=== PATIENT | male | born 1940 | race Caucasian/White ===

== ENCOUNTER 2017-01-09 02:12 | Inpatient (IN) | payer MEDICARE ==
[~2017-01-09] VITALS: Ht 188 cm; Wt 143.3 kg
[2017-01-09] VITALS (9 sets, daily range): BP systolic 94–130; BP diastolic 60–92; PULSE 55–144; RESP 20–28; O2SAT 96–100
[~2017-01-09 02:12] MED LIST: AMLO5TAB2 PO; ASPI-628 PO; CHOL100094 PO; FENO145T19 PO; FISH1CAP15 PO; FRSM80T PO; HYDR25TA4 PO; LISI-567 PO; MAGN400T4 PO; METF10002 PO; MULT1TAB70 PO; NIAC500T8 PO; POTA20TA16 PO; SITA100T12 PO; WARF5TAB7 PO
--- NOTE | 2017-01-09 02:22 | ED.REPORT ---
HPI-General Illness Date of Service Jan 09, 2017 ED Provider: Norberto Evans MD Patient is a 76 year old male with cardiac pacemaker and a history of atrial fibrillation on Coumadin, aortic valve replacement, coronary artery disease s/p CABG, hypertension, and diabetes mellitus who presents to the ED via EMS with blunt head trauma after a fall down 15 stairs this morning. Patient reportedly was walking up the stairs when he became dizzy and light headed. The patient grabbed for the rail but instead fell backwards down the stairs. Patient did not lose consciousness. He reports bilateral shoulder pain but denies hip pain, chest pain, or abdominal pain. He has various abrasions on his extremities. Patient was found to be hypotensive initially when he stood up, at 61 systolic. However he has remained stable since that time. Nursing Notes Stated Complaint: FALL DOWNSTAIRS/HYPOTENSION Nursing Notes Reviewed: Yes Allergies: Coded Allergies: Tizlvfk-Orc-Xba Reductase Inhibitor (Verified Allergy, Severe, 01/09/17) unable to walk hydrocodone (Verified Allergy, Severe, Shortness of Breath, 01/09/17) atorvastatin (Verified Allergy, Intermediate, muscle weakness, "can't walk ", 01/09/17) fluticasone (Verified Allergy, Intermediate, Hives, 01/09/17) gemfibrozil (Verified Allergy, Intermediate, 01/09/17) pt cannot remember reaction but states not being able to walk was r/t only to statins. simvastatin (Verified Allergy, Intermediate, muscle weakness "can't walk" , 01/09/17) Uncoded Allergies: crestor (Allergy, Intermediate, muscle weakness, can't walk, 10/31/07) red yeast rice (Allergy, Unknown, 10/31/07) Scheduled Furosemide (Furosemide) 20 Mg Tab 20 MG PO DAILY Glipizide (Glipizide) 5 Mg Tablet 5 MG PO DAILY Lisinopril (Lisinopril) 10 Mg Tablet 10 MG PO DAILY Magnesium Oxide (Magnesium Oxide) 400 Mg Tablet 400 MG PO DAILY Metformin ER (Metformin ER) 1,000 Mg Tablet 1,000 MG PO BID Rosuvastatin Calcium (Crestor) 5 Mg Tablet 2.5 MG PO WEEKLY Spironolactone (Spironolactone) 25 Mg Tablet 25 MG PO DAILY Warfarin Sodium (Warfarin Sodium) 5 Mg Tablet 5 MG PO Saturday Warfarin Sodium (Warfarin Sodium) 2.5 Mg Tablet 2.5 MG PO Sun,T,W,Th,F,S Miscellaneous Medications Multivitamin (Once Daily) 1 Each Tablet 1 EACH PO Vitamin B Complex 100 No.2 (B-100 Complex) 100 Mg Tablet.er 100 MG PO General Time Seen by MD: 02:13 Chief Complaint Other (blunt head trauma) Hx Obtained From: Patient Arrived By: Ambulance Sudden in Onset?: Yes Onset Occurred: Just prior to arrival Symptom Duration: Since onset Caused by: Fall down stairs Location: : Head: Shoulder left: Shoulder right Quality: Painful Severity: Current: Moderate Severity: Maximum: Moderate Recent Healthcare: No recent doctor visit, No recent hospitalization Similar Sx Previous: No Past Medical History Past Medical History atrial fibrillation on coumadin diabetes mellitus with peripheral neuropathy coronary artery disease hypertension arthritis hemorrhoids Venous stasis ulceration Venous insufficiency with lymphedema Eczema BPH Past Surgical History aortic valve replacement Reports: CABG, Cataract surgery Reports: Pacemaker insertion Smoking History Unknown if Ever Smoker Social History Other Social History: Good social support, , Local resident Ambulatory Status Independent Review of Systems Full Review of Systems Cardiovascular: Denies: Chest pain GI: Denies: Abdominal pain Musculoskeletal: Reports: Extremity pain, Joint pain, Denies: Neck pain Neurologic: Reports: Dizziness, Headache (head trauma), Lightheaded, Denies: Change LOC Complete sys rev & neg: except as marked. Physical Exam Vital Signs see paper chart Initial VS: Reviewed Skin: Warm, Dry, No cyanosis Neurologic: Alert, Oriented, Nonfocal Psychiatric: Mood/affect normal, Behavior normal, Normal thought content General/Constitutional: Awake, Alert, No acute distress Head / Eyes: Normocephalic, PERRL, EOMI superficial abrasion to his forehead Neck: Supple, No midline vertebral tend Trauma - Neck Specific: Positive: Immobilized - C Collar (placed in C collar after initial evaluation) Respiratory / Chest: Breath sounds NL, Breath sounds = bilat, No respiratory distress, No rales, No rhonchi, No wheezing, No chest tenderness, No chest wall deformity, No crepitus Cardiovascular: Cap refill not delayed, Peripheral circulation NL Heart Rate / Rhythm: Positive: Irreg irregular rhythm (in atrial fibrillation) , Tachycardia Abdomen: Soft, Non-tender, No guarding, No rebound Upper Extremities Upper Extremity / MS: No deformity, Neurologic intact, Vascular intact Right Shoulder: Negative: Deformity present Left Shoulder: Negative: Deformity present abrasion to the left forearm extensor surface Lower Extremity / Pelvis / MS: No deformity, Neurologic intact, Vascular intact Ankle / Foot: Neurologic intact, Vascular intact abrasion to the right second toe Interpretation & Diagnostics Lab Results Interpretation Result Diagram: 01/09/1721401/09/175 Test 01/09/17 02:15 White Blood Count 6.5th/mm3 (3.8-10.1) Red Blood Count 4.06mil/mm3 (4.40-5.80) Hemoglobin 11.1g/dL (13.8-17.2) Hematocrit 37.1% (41.0-50.0) Mean Corpuscular Volume 91.4fL (81-100) Mean Corpuscular Hemoglobin 27.3pg (27.0-35.0) Mean Corpuscular Hemoglobin Concent 29.9% (32.0-37.0) Red Cell Distribution Width 16.2% (12.3-15.4) Platelet Count 174bil/L (150-400) Neutrophils (%) (Auto) 76.4% (40-74) Lymphocytes (%) (Auto) 14.4% (14-46) Monocytes (%) (Auto) 6.8% (4-12) Eosinophils (%) (Auto) 1.1% (0-5) Basophils (%) (Auto) 0.2% (0-3) Prothrombin Time 29.7sec (8.1-12.5) Prothromb Time International Ratio 2.72ratio Activated Partial Thromboplast Time 33.8sec (22.8-33.0) Sodium Level 140mEq/L (134-144) Potassium Level 5.2mEq/L (3.5-5.2) Chloride Level 104mEq/L (97-108) Carbon Dioxide Level 18mmol/L (18-29) Blood Urea Nitrogen 34mg/dL (8-27) Creatinine 1.11mg/dL (0.76-1.27) Estimat Glomerular Filtration Rate 69mL/min (>59) Glucose Level 128mg/dL (60-99) Calcium Level 9.0mg/dL (8.5-10.1) Magnesium Level 1.7mg/dL (1.6-2.6) Total Bilirubin 0.9mg/dL (0.0-1.2) Aspartate Amino Transf (AST/SGOT) 15U/L (0-50) Alanine Aminotransferase (ALT/SGPT) 11U/L (0-44) Alkaline Phosphatase 62U/L (25-160) Troponin T 0.010ug/L (0.0-0.011) Total Protein 6.7g/dL (6.4-8.4) Albumin 3.5g/dL (3.4-5.0) Lipase 11U/L (13-60) Alcohols < 10mg/dL (0-10) ECG Interpretation ECG Interpretation: Atrial fibrillation, paced rhythm, Rate 119 One fusion beat Time: 02:28 Interpreted by: ED physician X-Ray Chest Interpretation Chest Xray Interpretation: Impression: Pleural effusions bilaterally. Cardiomegaly. Increased markings, consistent with CHF. Interpretation / Wet Read by: Wet read ED physician X-Ray Interpretation Xray Interpretation: Impression: No acute fracture. X-Ray Ordered: Pelvis Interpretation / Wet Read by: Wet read ED physician CT Head Interpretation CONCLUSION: Posterior scalp hematoma. No evidence of acute intracranial injury. Chronic microvascular ischemic disease and volume loss. Radiologist: Corrine Mares MD 01/09/2017 - 2:54:06 AM PDT Study: Head CT no contrast Interpretation / Wet Read by: Interpret - Radiologist CT C-Spine Interpretation CONCLUSION: No evidence of fracture or subluxation. Extensive degenerative changes with slight central canal stenosis multilevel. If any neurologic symptoms, MRI may be helpful for further evaluation. Bilateral pleural effuions and hazy lung opacities. Radiologist: Corrine Mares MD 01/09/2017 - 3:06:48 AM PDT Study type: CT no contrast Interpretation / Wet Read by: Interpret - Radiologist Re-Eval/Medical Decision Med Decision/Clinical Course 76-year-old therapeutically anticoagulated on Coumadin suffered a stair fall and head injury after an episode of orthostatic dizziness apparently. His blood pressure and vitals been stable since. Cardiac evaluation negative. Initial CT is negative for intracranial bleeding or neck injury. By protocol, he is admitted for observation status and rescan in 6-8 hours to exclude slow bleeding with his underlying anticoagulation. Transported to the medical service in stable condition. Source of Hx: Old records Time of Eval: 03:14 Patient Status: Condition improved Re-Evaluation/Progress Note: Rechecked the patient, he is now accompanied by his . He was informed that no acute injury was seen on x-ray or CT scan. However he will need to be admitted to the hospital for a repeat CT scan in 8 hours. This is due to the fact that his INR is currently therapeutic. Patient understands and agrees with this plan. All questions were addressed. Consultation : Referral / Consult Name: Devaughn Medley MD Consulted With: Hospitalist Call Returned at: 03:10 Safety Spec: Will see patient, Agrees with eval, Agrees with plan, Accepts admit Note: Spoke with Dr. Medley, hospitalist, who agrees to accept admit. Counseled Regarding: Diagnosis, Lab results, Need for admission Discharge & Departure Primary Impression: Blunt head injury Encounter type: initial encounter Qualified Code: S09.8XXA - Other specified injuries of head, initial encounter Additional Impressions: Fall from ground level Anticoagulated on Coumadin Atrial fibrillation Atrial fibrillation type: chronic Qualified Code: I48.2 - Chronic atrial fibrillation Multiple abrasions Disposition: ADMITTED TO HOSPITAL Discharge Condition All VS Reviewed: Yes Condition: Stable Referrals: Temitope Buenrostro PA-C (PCP) Calin Waller MD (Family) Paige Attestation Portions of this note were transcribed by Jeannie Lanza. I, Dr. Evans personally performed the history, physical exam and medical decision-making; I reviewed and confirmed the accuracy of the information in the transcribed note. Signed by: Paige Warren, 01/09/2017 [id number] copies to: Temitope Buenrostro PA-C, Christopher W MD Jan 09, 2017 02:21 Jeannie Lanza Jan 09, 2017 02:29
[2017-01-09 02:28] LABS: BASOPHILS % (AUTO) 0.2 % (0-3); EOSINOPHILS % (AUTO) 1.1 % (0-5); MONOCYTES % (AUTO) 6.8 % (4-12); Mean Corpuscular Hemoglobin 27.3 pg (27.0-35.0); Mean Corpuscular Volume 91.4 fL (81-100); NEUTROPHILS % (AUTO) 76.4 % (40-74); Platelet Count 174 bil/L (150-400)
[2017-01-09 02:46] LABS: INR 2.72 ratio
[2017-01-09] MEDS ORDERED: LISI10TA PO (02:54)
[2017-01-09] MEDS ORDERED: SPIR25TA3 PO (02:54)
[2017-01-09] MEDS ORDERED: VITA100T4 PO (02:54)
[2017-01-09] MEDS ORDERED: GLPZ5T PO (02:54)
[2017-01-09] MEDS ORDERED: ROSU5TAB PO (02:54)
[2017-01-09] MEDS ORDERED: FUR20 PO (02:54)
[2017-01-09] MEDS ORDERED: METF-496 PO (03:05)
[2017-01-09] MEDS ORDERED: MULT-666 PO (03:06)
[2017-01-09] MEDS ORDERED: WARF2.5T82 PO (03:06)
[2017-01-09] MEDS ORDERED: WARF5TAB7 PO (03:06)
[2017-01-09 03:09] LABS: Lipase 11 U/L (13-60); Magnesium 1.7 mg/dL (1.6-2.6)
[2017-01-09] MEDS ORDERED: Ondansetron 2 mg/mL 2 mL Inj IVPUSH PRN (03:45)
[2017-01-09] MEDS ORDERED: Polyethylene Glycol (PEG) 17 Gm Powder PO PRN (03:45)
[2017-01-09] MEDS ORDERED: Alum-Mag Hydrox-Simeth 30 mL Suspension PO PRN (03:45)
--- NOTE | 2017-01-09 03:53 | PCM.HPMED ---
Subjective Date of Service Jan 09, 2017 Primary Provider: Admitting Physician: Primary Care Physician: Temitope Buenrostro PA-C Attending Physician: Admit Status: From the Emergency Department, Remote Telemetry Chief Complaint: Fall down stairs History of Present Illness: Mr. 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 He was admitted for evaluation and monitoring any potential injury secondary to this fall. Hospital day 1 Mr. Bajwa states that he fell this evening as he got up from his chair on the first level of his home, and he was on his way upstairs to sleep in his bedroom , when he reached the top step and was unable to grab the hand rail, and as he was reaching for the handrail he tumbled down approximately 15 steps sideways. He denies any loss of consciousness, shortness of breath, dizziness, gait instability, acute vision changes, headache prior to this event, or any other inciting factor. He does not believe he tripped, blacked out, or was dizzy at the top of the steps. He states he is uncertain why he fell, but he does remember the sensation of falling, and attempting to reach for the handrail. He notes he uses a walker or cane at baseline, but is able to effectively ambulate around his home and perform activities of daily living without any difficulties. He states that his injury leading to this admission was not related to his recent right knee replacement, nor does he believe is related to his recent admission in [place], which was for treatment of left lower extremity cellulitis. He states that he has been followed by wound care since that hospitalization in [place], with most recent wound care visit the day prior to admission. He states he also recently began physical therapy for his right knee replacement. Patient was recently seen by cardiology 12/28, and was in stable condition at that time. In the ED, multiple imaging studies were obtained including EKG which revealed atrial fibrillation and a paced rhythm, chest x-ray which revealed pleural effusions bilaterally and cardiomegaly consistent with CHF, cervical spine x- ray which did not reveal any acute fracture; CT head did not reveal any acute intracranial injury, but did reveal a posterior scalp hematoma and chronic microvascular ischemic disease and volume loss; CT cervical spine reveal any evidence of fracture or subluxation, but there was extensive degenerative changes; initial labs revealed WBC 6.5, hemoglobin 11.1, electrolytes within range, creatinine 1.11, glucose of 128. This patient was seen in the ED and was in stable condition, awaiting transport to the floor. Review of Systems: Complete ROS obtained: Pertinent positives and negatives as noted in history of present illness Allergies Coded Allergies: Owybdsn-Ufb-Akp Reductase Inhibitor (Verified Allergy, Severe, 01/09/17) unable to walk hydrocodone (Verified Allergy, Severe, Shortness of Breath, 01/09/17) atorvastatin (Verified Allergy, Intermediate, muscle weakness, "can't walk ", 01/09/17) fluticasone (Verified Allergy, Intermediate, Hives, 01/09/17) gemfibrozil (Verified Allergy, Intermediate, 01/09/17) pt cannot remember reaction but states not being able to walk was r/t only to statins. simvastatin (Verified Allergy, Intermediate, muscle weakness "can't walk" , 01/09/17) Uncoded Allergies: crestor (Allergy, Intermediate, muscle weakness, can't walk, 10/31/07) red yeast rice (Allergy, Unknown, 10/31/07) Home Medications Obtained from [employer] documentation dated 01/01/17 Vick Bajwa [id number] 1940 01/01/2017 01:40 PM 09/21 Start Date Medication Directions Stop Date 12/08/2015 carvedilol 6.25 mg tablet take 1.5 tablets by oral route 2 times every day with food 05/18/2016 Crestor 5 mg tablet take 0.5 tablet by oral route every week Dulcolax (bisacodyl) 10 mg rectal suppository insert 1 suppository by rectal route every day as needed for constipation flaxseed oil 1,000 mg capsule Take one capsule twice a day Fleet [employer]ema 19 gram-7 gram/118 mL 12/28/2016 furosemide 40 mg tablet 1 tablet by mouth daily 12/21/2016 glipizide 5 mg tablet take 1 tablet by oral route every day GLUCOSAMINE-CHONDROITIN 03/06/2016 lisinopril 10 mg tablet take 1 tablet by oral route every day 12/21/2016 magnesium oxide 400 mg tablet 1 tablet by mouth daily 10/18/2016 metformin 1,000 mg tablet take 1 tablet by oral route 2 times every day with morning and evening meals 08/23/2009 Multi-Day 1 tablet by mouth daily OneTouch Ultra Test strips test one times a day 09/21/2016 spironolactone 25 mg tablet take 1 tablet by oral route every day ( stop potassium, triamterene, hydrochlorothiazide) Tylenol 325 mg tablet take 2 tablet by oral route every 4 hours as needed Vitamin D3 1,000 unit tablet take 1 tablet by oral route every day 10/09/2016 warfarin 5 mg tablet take 0.5 tablet (2.5mg) daily except take one tablet (5mg) on Tuesdays Patient and did verify medications including carvedilol, furosemide, glipizide, lisinopril, magnesium, metformin, spironolactone, and warfarin PMH Aortic stenosis status post prosthetic aVR Coronary artery disease status post four-vessel CABG Reduced ejection fraction heart failure from ischemic cardiomyopathy Third-degree AV block status post [place] [place] dual-chamber pacer Atrial fibrillation on long-term anticoagulation therapy Degenerative joint disease of bilateral knees status post right total knee replacement Type II diabetes Hyperlipidemia Hypertension Bilateral lower extremity venous stasis changes Left lower extremity cellulitis secondary to fluid overload Surgical History Aortic valve replacement, bioprosthetic Four-vessel CABG Dual-chamber pacer placement Unspecified eye surgery Right knee replacement Family History Father of myocardial infarction at age of 62, mother at the age of 45 secondary to suicide Social History Occupation: retired Hx Alcohol Use: No Hx Substance Use: No Hx Tobacco Use: No Smoking Status: Never Smoker Living Arrangement: with Family (; local [place] Del[place]) Exam Exam General: Obese gentleman resting supine in bed in no acute distress; coverage and multiple abrasions and remnants of recent bleed HEENT: Small abrasions noted of right ear, across forehead, and along scalp no tenderness reported; pupils equal and reactive to light, EOMI, mucous membranes moist Neck: Able to move full range of motion without significant pain but does report discomfort Cardiac: Tachycardic at time of examination with rates 110-130, irregularly irregular, systolic murmur 2/6 Respiratory: Adequate airflow all wharton, no wheeze or rhonchi appreciated Abdomen: Soft, nontender, nondistended Extremities: Left lower extremity is wrapped from metatarsal phalangeal joint to distal aspect of knee without surrounding erythema above and imaging; right lower extremity notable for linear scar at knee, multiple small abrasions noted without evidence of profuse active bleeding; bilateral upper extremities notable for small abrasions without evidence of significant active bleeding; significant bilateral lower extremity venous stasis changes with mild to moderate edema Chest: Linear scar central, healed; small abrasions noted Skin: Warm and dry, again with multiple sites of abrasion, but no evidence of profuse active bleeding at this time; no areas in need of extensive bandaging or suturing Neuro: Cranial nerves II through XII grossly intact, facial expressions were symmetrical, and speech was without slur Psych: Appropriate mood, affect, and responsive to questioning Lab and Diagnostics Result Diagram: 01/09/1721401/09/17214 Assessment & Plan Mr. 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 He was admitted for evaluation and monitoring any potential injury secondary to this fall. Hospital day 1 Traumatic fall down steps, acute, present on admission. Under evaluation - Initial CT scan did not reveal any acute intracranial abnormality - Repeat head CT between noon and 2 PM; ordered - Physical therapy evaluation for gait stability given history of recent right knee replacement and recent history of left lower extremity cellulitis - Orthostatics - Labs: CBC, BMP, thyroid - Telemetry Chronic atrial fibrillation on long-term anticoagulation therapy. Presumed stable - Admit: INR 2.72 - Holding anticoagulation at this time secondary to possibility of bleeding - Carvedilol has been continued Heart failure with reduced ejection fraction, chronic. Presumed stable - Continue home meds when appropriate; spironolactone and furosemide have been ordered Non-insulin using diabetes mellitus, chronic. Presumed stable - HbA1c 12/2016:6.3 - Holding oral medications at this time - Low-dose correctional scale in place Hypertension, chronic. Presumed stable - Continue home meds when appropriate - Consider modifications of carvedilol and/or diuretics based on results of orthostatic vitals Osteoarthritis of right knee status post arthroplasty, chronic. Presumed stable - Procedure reported to have been completed 10/2016 - PT eval for gait stability PRN: Fever/bowel/pain/nausea DVT: Cannot place SCD on the left lower secondary to left lower extremity wounds , cannot anticoagulate secondary to possibility of bleed GI: Not indicated Diet: Heart healthy/consistent carb CODE STATUS: Full code Patient status: Due to severity of presenting symptoms, likely course of care, and risk of adverse events, anticipated length of stay is less than 2 midnight; admitted as observation at this time Pain Evaluation: Adequate Pain Control GI Prophylaxis: Not indicated VTE Prophylaxis Indicated: Contraindicated VTE Prophylaxis: SCDs Resuscitation Status: CPR: Attempt Resuscitation Attending Statement The patient was seen and examined together with Dr. Arreola on 01/09 and I agree with the history, exam and plan as outlined in the note above. Jaye Arreola DO Jan 09, 2017 03:53 Devaughn Medley MD Jan 09, 2017 05:12
[2017-01-09] MEDS ORDERED: Glucose 40% Oral Gel 15 Gm Tube PO PRN (04:20)
[2017-01-09 07:21] LABS: BASOPHILS % (AUTO) 0.1 % (0-3); EOSINOPHILS % (AUTO) 0.1 % (0-5); MONOCYTES % (AUTO) 6.3 % (4-12); Mean Corpuscular Hemoglobin 27.6 pg (27.0-35.0); Mean Corpuscular Volume 91.8 fL (81-100); NEUTROPHILS % (AUTO) 86.5 % (40-74); Platelet Count 148 bil/L (150-400)
[2017-01-09] MEDS: Insulin LISPRO 300 Unit/3 mL Inj SUBQ SCH ×4 (08:00→21:29)
[2017-01-09] MEDS ORDERED: Furosemide 10 mg/mL 4 mL Inj IVPUSH SCH (08:30)
--- NOTE | 2017-01-09 08:39 | DRSVH ---
PROCEDURE: CT BRAIN WITHOUT CONTRAST ([id number]) INDICATIONS: stair level fall TECHNIQUE: Noncontrast 4.5 mm thick angled axial sections acquired from the foramen magnum to the vertex, with c oronal reformats. COMPARISON: None. FINDINGS: Image quality: Excellent. CSF spaces: Basal cisterns are patent. No extra-axial fluid collections. The ventricles are symmet beltran in size and shape. Brain: No intracranial bleeds or masses. There is cerebral volume loss for age, with resultant vent ricular and sulcal prominence. There are periventricular and deep white matter chronic small vessel ischemic changes. There is intracranial internal carotid artery and vertebral artery atherosclerosis . Skull and face: Calvarium and visualized facial bones appear intact, without suspicious lesions. Sma ll posterior left parietal scalp hematoma is noted. Scattered soft tissue air is noted in the right t emporal cyst gout, right frontal scalp and the right infratemporal fossa. Small amount of air noted i n the right internal jugular vein and the right C1 transverse foramen. Etiology of the vascular soft tissue air is uncertain. Sinuses: Visualized sinuses and mastoids are clear. IMPRESSION: 1. No acute intracranial disease process. 2. Small left parietal scalp hematoma. 3. Right facial soft tissue air of uncertain etiology. Dictated by: Nancy Moody MD, PhD on 01/09/2017 at 8:34 Approved by: Nancy Moody MD, PhD on 01/09/2017 at 8:38
[2017-01-09 08:43] LABS: APPEARANCE,URINE HAZY (CLEAR,HAZY); COLOR,URINE YELLOW (YELLOW); PH,URINE 5.5 (5.0-8.0)
[2017-01-09 08:44] LABS: OCCULT BLOOD,URINE NEGATIVE (NEGATIVE); UROBILINOGEN,URINE NORMAL (NORMAL)
[2017-01-09 08:56] LABS: Magnesium 1.7 mg/dL (1.6-2.6)
--- NOTE | 2017-01-09 08:57 | DRSVH ---
PROCEDURE: X-RAY CHEST ONE VIEW, PORTABLE ([id number]) INDICATIONS: fall TECHNIQUE: One view of the chest was acquired. COMPARISON: [facility], CR, CHEST 2VW, 10/28/2012, 7:32. FINDINGS: Surgical changes and devices: Post median sternotomy. Stable position of left cardiac pacer. Lungs and pleura: There is cephalization of lung vessels and diffuse, widespread bilateral interstiti al opacities present. Mediastinum: Mediastinal contours appear normal. Heart size is enlarged. Mitral annular calcificat ion redemonstrated. Bones and chest wall: No suspicious bony lesions. Overlying soft tissues appear unremarkable. IMPRESSION: 1. Cephalization and lung vessels with interstitial opacities and background cardiomegaly suggesting CHF. Correlate clinically. Dictated by: Mika Meadows [facility] Interpreted: Adam Manuel MD on 01/09/2017 at 8:56 Transcribed by: TOMMIE on 01/09/2017 at 8:57 Approved by: Adam Manuel M.D. on 01/09/2017 at 15:39
--- NOTE | 2017-01-09 08:58 | DRSVH ---
PROCEDURE: X-RAY PELVIS, ONE OR TWO VIEWS ([id number]) INDICATIONS: fall TECHNIQUE: 1 view(s) of the pelvis acquired. COMPARISON: None. FINDINGS: Bones: No fractures or dislocations. No suspicious bony lesions. Soft tissues: Visualized bowel gas pattern is normal. No suspicious soft tissue calcifications. IMPRESSION: No displaced fracture seen. If there is continued pain, followup exam or additional casi ging such as MRI or CT could be performed for further assessment. Dictated by: Mika Meadows [facility] Interpreted: Adam Manuel MD on 01/09/2017 at 8:57 Transcribed by: TOMMIE on 01/09/2017 at 8:57 Approved by: Adam Manuel M.D. on 01/09/2017 at 15:39
--- NOTE | 2017-01-09 10:11 | DRSVH ---
PROCEDURE: CT CERVICAL SPINE WITHOUT CONTRAST ([id number]) INDICATIONS: stair level fall TECHNIQUE: Noncontrast 3 mm thick sections acquired from the skull base to the T4 level. Sagittal and coronal r eformats were then constructed. For radiation dose reduction, the following was used: automated exp osure control, adjustment of mA and/or kV according to patient size. COMPARISON: None. FINDINGS: Image quality: Excellent. Bones: No fractures or dislocations. Visualized superior ribs are intact. Multilevel degenerative d isc disease and facet arthropathy are noted. Soft tissues: Prevertebral soft tissues are normal in thickness. No paravertebral hematomas. No ap ical pneumothoraces. Presence of cardiac pacer leads noted. Atherosclerotic calcifications noted incl uding possible significant atherosclerotic stenosis of the origins of the internal carotid arteries. Bilateral pleural fluid collections noted right greater than left. Scattered air locules noted in the chest venous vasculature, neck venous vasculature and the cavernous sinus likely related to intraven ous catheter placement. IMPRESSION: 1. No fracture. No acute osseous lesion. If symptoms and/or clinical suspicion for pathology persists , evaluation with MRI may be helpful for further assessment. 2. Atherosclerosis including possible significant atherosclerotic stenosis of the origins of the inte rnal carotid arteries. Recommend carotid Doppler ultrasound for further evaluation. 3. Bilateral pleural effusions. Dictated by: Nancy Moody MD, PhD on 01/09/2017 at 10:00 Approved by: Nancy Moody MD, PhD on 01/09/2017 at 10:09
--- NOTE | 2017-01-09 11:11 | PCM.PNMED ---
Subjective Date of Service Jan 09, 2017 Subjective Patient is seen and examined. His CT scan of the head shows left parietal hematoma. 2 follow-up CT scan ordered last night. His orthostatics are positive. He says that he experiences dizziness every time he takes a one fourth tablet of Lasix. This has been an issue for him because he continues to need the Lasix for diuresis but having to face the side effects of dizziness. He says this is a similar feeling to him not sudden onset and he experienced the same level of dizziness when he experienced a fall. His right shoulder is currently hurting but otherwise negative for pain. States he just had hospitalization related Gen. 2 weeks ago for right leg cellulitis. 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 Exam Vital Signs Vital Sign - Last Date Time Temp Pulse Resp B/P Pulse Ox O2 Delivery O2 Flow Rate FiO2 01/09/17 09:55 91 22 112/79 96 Nasal Cannula 2.00 01/09/17 07:00 36.8 Intake and Output 01/08/17 01/08/17 01/09/17 Cumulative From/Thru 15:00 23:00 07:00 01/09/17 04:43 - 01/09/17 04:43 Intake Total 1000 ml 1000 ml Balance 1000 ml 1000 ml Intake IV Total 1000 ml 1000 ml Exam Gen.: No acute distress has several superficial scrapes all over his body from the fall HEENT: Normocephalic with the exception of a bruise on the frontal hairline Heart: Soft systolic murmur Neck: Positive JVD on the left side, positive hepatojugular reflux Lungs: Clear anteriorly Abdomen obese, soft nondistended Extremities: Left leg is wrapped in dressings by wound care, and has 2+ pitting edema with venous stasis changes and discoloration Psychiatric negative for anxiety Neuro: No focal deficits IVs and Medications IV Fluids None Medications Reviewed: Medications were reviewed in detail Lab and Diagnostics Result Diagram: 01/09/17 0710 01/09/17 07 Assessment & Plan Mr. 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 He was admitted for evaluation and monitoring any potential injury secondary to this fall. Hospital day 1 Traumatic fall down steps, acute, present on admission. Under evaluation - Initial CT scan did not reveal any acute intracranial abnormality - Repeat head CT between noon and 2 PM; ordered: We will recheck for increasing hematoma - Physical therapy evaluation for gait stability given history of recent right knee replacement and recent history of left lower extremity cellulitis - Orthostatics - Labs: CBC, BMP, thyroid - Telemetry -- Plan to hold Coumadin until his second CT is clear or longer Chronic atrial fibrillation on long-term anticoagulation therapy. Presumed stable - Admit: INR 2.72 - Holding anticoagulation at this time secondary to possibility of bleeding - Carvedilol has been continued -- We will reverse it is the follow-up CT scan shows worsening Internal carotid stenosis: -- As indicated by the this a.m., follow carotid ultrasound is ordered Heart failure with reduced ejection fraction, chronic. Presumed stable -- He is currently on IV 40 mg of Lasix and spironolactone -- We will put him back on his home regimen Non-insulin using diabetes mellitus, chronic. Presumed stable - HbA1c 12/2016:6.3 - Holding oral medications at this time - Low-dose correctional scale in place Hypertension, chronic. Presumed stable - Continue home meds when appropriate - Consider modifications of carvedilol and/or diuretics based on results of orthostatic vitals: Positive orthostatics. We will consider careful titration of Lasix, cardiology consult Osteoarthritis of right knee status post arthroplasty, chronic. Presumed stable - Procedure reported to have been completed 10/2016 - PT eval for gait stability PRN: Fever/bowel/pain/nausea DVT: Cannot place SCD on the left lower secondary to left lower extremity wounds , cannot anticoagulate secondary to possibility of bleed GI: Not indicated Diet: Heart healthy/consistent carb CODE STATUS: Full code, confirmed again this morning 01/09 Alternate decision-maker: Patient status: Due to severity of presenting symptoms, likely course of care, and risk of adverse events, anticipated length of stay is less than 2 midnight; admitted as observation at this time Pain Evaluation: Adequate Pain Control GI Prophylaxis: Not indicated VTE Prophylaxis: SCDs Resuscitation Status: CPR: Attempt Resuscitation Karo Tee DO Jan 09, 2017 11:11
--- NOTE | 2017-01-09 11:45 | NUR ---
Social Work: Initial Assessment Data: Pt is a 76 y/o male admitted for stair fall, blunt head trauma per H&P. Pt's PCP is Temitope Buenrostro PA-C and insurance is [employer] Medicare. Pt does not have VA or LTC insurance. Pt has no HH or SNF history. Pt lives at home in [place] with his Vania. Vania Bajwa is his primary contact ([phone]). Pt lives in a split level home with [address] Pt drives and independent at baseline. Pt uses 4-point cane and FWW for long distances. Pt is independent of ADL's. SW reviewed PT evaluation and notes that PT recommends pt to go home with no needs at time of discharge. Pt will go home with via POV at time of discharge. SW will continue to follow. Assessment: Pt who is independent at baseline. Plan: Pt will discharge home with via POV when he is ready. No anticipated discharge needs. Addendum: 01/09/17 at 1155 by MAURO HSIEH Amended: Links added. Addendum: 01/09/17 at 1331 by PANCHO IKNG SS Case management- IMM explained and signed by DPOA. Copy given to DPOA. Orginal placed in chart. Pancho BARBOSA/RN
--- NOTE | 2017-01-09 15:08 | DRSVH ---
PROCEDURE: US BILATERAL DUPLEX DOPPLER IMAGING OF THE CAROTIDS ([id number]) INDICATIONS: IC carotid stenosis on CT TECHNIQUE: Color and pulse Doppler interrogation was performed of both carotid systems, with image documentation and velocity measurements. COMPARISON: [facility], CT, CT CERVICAL SPINE WO CON, 01/09/2017, 2:34. FINDINGS: All stenosis calculations are based on NASCET criteria. Right side: Brachial blood pressure: 104/71 mm Hg. Common Carotid Artery(Distal) PSV: 46.90 cm/s Internal Carotid Artery PSV- Proximal: 68 cm/s EDV - Proximal: 25 cm/s External Carotid Artery(Proximal) PSV: 58.90 cm/s ICA/CCA PSV ratio: 1.5 [place] scale imaging description: Moderate scattered plaque. Percent internal carotid artery stenosis: Less than 50%. Vertebral artery: Flow direction is antegrade. Left side: Brachial blood pressure: 106/73 mm Hg. Common Carotid Artery(Distal) PSV: 59.30 cm/s Internal Carotid Artery PSV - Proximal: 42.10 cm/s Mid-lon.30 cm/s Distal: 60.60 cm/s EDV - Proximal: 11.10 cm/s Mid-lon.10 cm/s Distal: 14.30 cm/s External Carotid Artery(Proximal) PSV: 43.30 cm/s ICA/CCA PSV ratio: 1.0 [place] scale imaging description: Moderate scattered plaque. Percent internal carotid artery stenosis: Less than 50%. Vertebral artery: Flow direction is antegrade. IMPRESSION: Less than 50% bilateral internal carotid artery stenosis. Cardiac arrhythmia demonstrated. Correlate clinically.nn Dictated by: Mika Meadows RRA Interpreted: Adam Manuel MD on 01/09/2017 at 15:06 Transcribed by: TOMMIE on 01/09/2017 at 15:07 Approved by: Adam Manuel M.D. on 01/09/2017 at 15:40
--- NOTE | 2017-01-09 15:38 | DRSVH ---
PROCEDURE: X-RAY RIGHT SHOULDER, MINIMUM TWO VIEWS ([id number]) INDICATIONS: fall, pain w flex/abduction TECHNIQUE: 3 views of the shoulder were acquired. COMPARISON: None. FINDINGS: Bones: No fractures or dislocations. No suspicious bony lesions. Visualized ribs appear intact. M ild joint narrowing with periarticular osteophyte formation. Soft tissues: No suspicious soft tissue calcifications. IMPRESSION: 1. No displaced fracture seen. If there is continued pain, followup exam or additional imaging such as MRI or CT could be performed for further assessment. 2. Joint degeneration. Dictated by: Mika Meadows [facility] Interpreted: Adam Manuel MD on 01/09/2017 at 15:37 Transcribed by: TOMMIE on 01/09/2017 at 15:38 Approved by: Adam Manuel M.D. on 01/09/2017 at 15:43
--- NOTE | 2017-01-09 15:39 | DRSVH ---
PROCEDURE: CT BRAIN WITHOUT CONTRAST ([id number]) INDICATIONS: repeat-eval bleed 2/2 GLF on coumadin TECHNIQUE: Noncontrast 4.5 mm thick angled axial sections acquired from the foramen magnum to the vertex, with c oronal reformats. COMPARISON: [facility], CT, CT BRAIN WO CON, 01/09/2017, 2:34. FINDINGS: Image quality: Excellent. CSF spaces: Basal cisterns are patent. No extra-axial fluid collections. The ventricles are symmet beltran in size and shape. Brain: No intracranial bleeds or masses. There is cerebral volume loss for age, with resultant vent ricular and sulcal prominence. There are periventricular and deep white matter chronic small vessel ischemic changes asymmetrically mildly more prominent at the right frontal region and on the left whe re a prior stroke likely has occurred (image 19).. There is intracranial internal carotid artery ath erosclerosis. Skull and face: Calvarium and visualized facial bones appear intact, without suspicious lesions. A very small amount of gas within the deep soft tissues adjacent to the posterior lateral border of the right maxillary sinus has resolved, with reference to the CT scan from earlier this morning (approxi mately 12 hours ago). Left frontal scalp swelling again noted over the forehead. Sinuses: Visualized sinuses and mastoids are clear. IMPRESSION: No intracranial hemorrhage seen. Moderate microvascular atherosclerotic change including a presumed prior stroke right frontal brain parenchyma within the deep white matter, stable from the study 12 hours ago. Resolution of a very small amount of gas in the deep soft tissues of the right face adjacent to the posterior border of the right maxillary sinus. This therefore appears to have p osttraumatic in origin. Dictated by: Adam Manuel M.D. on 01/09/2017 at 15:31 Approved by: Adam Manuel M.D. on 01/09/2017 at 15:38
--- NOTE | 2017-01-09 17:19 | NUR ---
Wound Care Wound orders received, pt seen at bedside prior to eminent discharge. 76 yo male currently in [facility] for left lower extremity stasis ulcerations. Pt fell at home, currently presents with skin tears at right forearm measuring 2 cm L x 3 cm W x 0.1 D and 1 cm L x 2 cm W x 0.1 cm, these was covered with a mepilex foam dressings. Left elbow has a skin tear that is 1 cm in diameter ad is covered with a mepilex foam dressing. Patient also had abrasion on his forehead which did not require a dressing and an abrasion on his right knee that measured 3 cm L x 4 cm W x 0.1 cm D, this was also covered with a mepilex foam dressing. Patient has follow up appointment at the wound center on 01/14/[address] Davenport.
--- NOTE | 2017-01-09 17:27 | HP ---
[address] [address] HISTORY AND PHYSICAL PATIENT: NEIDA WAGNER : 1940 MR#: [id number] ADMIT: 01/09/2017 JOB ID: [id number] CHIEF COMPLAINT: Fall from stairs. HISTORY OF PRESENT ILLNESS: The patient is a very pleasant, 76-year-old gentleman with complex cardiac history. He underwent four-vessel bypass in 2008 along with a bioprosthetic aortic valve. He also had a pacemaker placed for third-degree AV block. He also has history of chronic atrial fibrillation. In addition, he has cellulitis and venous stasis ulcers of his legs. He has chronic lower extremity edema. The patient's last echocardiogram done in 2015 showed mild LV dysfunction with EF around 45%. His bioprosthetic valve was working appropriately. He also has mild mitral stenosis with a mean inflow gradient about 5 mm. Yesterday he was climbing stairs in his house. He has 15 steps. He got to the top of the staircase and tried to grab the railing behind him. He felt a wave of lightheadedness. He lost his balance and fell down 15 steps. Unfortunately, he did not break any bones. His CT scan did not show any intracranial hemorrhage. He has soft tissue hematoma. The patient currently is denying any chest discomfort or chest pressure. He has been in the hospital and he has been monitored. His monitoring shows atrial fibrillation, and his heart rate has been fairly high and running over 100. Currently, the patient is denying any cardiac symptoms. He wants to go home. PAST MEDICAL HISTORY: As per HPI. Mainly aortic stenosis, status post prosthetic AVR, coronary artery disease; status post coronary artery bypass grafting, high-grade AV block with a permanent pacemaker, AFib, degenerative joint disease, diabetes, hyperlipidemia, hypertension, venous stasis ulcers, history of cellulitis of his legs in the past. FAMILY HISTORY: His father had a myocardial infarction in the 60s. PERSONAL HISTORY: He is retired. Nonsmoker, nondrinker. REVIEW OF SYSTEMS: Comprehensive review of systems was done and is as per HPI. He sees Dr. Nai Davenport [facility]. He has not been informed about any arterial insufficiency of the lower limbs. Neurological: Recent CT scan showed evidence of microvascular disease. He has not had any stroke. The patient sleeps in a recliner. He has history of orthopnea which is chronic. There has been no worsening in his orthopnea. He denies any PND ALLERGIES: 1. MULTIPLE STATINS. 2. HYDROCODONE. 3. GEMFIBROZIL. 4. FLUTICASONE. 5. RED YEAST RICE. MEDICATIONS: At home: Carvedilol, Crestor, flaxseed, furosemide, glipizide, lisinopril, magnesium, metformin, spironolactone, warfarin, vitamin B and Tylenol. EXAMINATION: Overweight elderly gentleman in no apparent distress. Neck is supple. I could not appreciate a JVD . Lungs are clear. Heart sounds S1, S2 are irregularly irregular, and he is tachycardic. No gallops could be appreciated. Abdomen is soft and obese. No organomegaly could be palpated. Extremities: Left leg is wrapped in a dressing. He has 2+ edema with hyperpigmentation and venous stasis changes. Neurological: Alert and oriented x3. Moving all four limbs. LABORATORY DATA: Was reviewed. His creatinine is 0.99. His hemoglobin is 10.5, which is mildly reduced. ASSESSMENT AND PLAN: This gentleman presents after a fall. I was asked to see him for optimization of his medical therapy. He has mild LV dysfunction. He has history of congestive heart failure. He presents mainly with findings of right heart failure (there is mention of hepatojugular reflux and elevated JVD on admission). His orthopnea could be because of his body habitus and habit. He does not appear to be in left-sided heart failure. His edema could be a result of venous insufficiency. At this point, I would like to make a few changes in his medications. I will discontinue his carvedilol and start him on metoprolol. Hopefully the beta jimmy without any alpha blocking agents will reduce incidence of his orthostasis (he was noted to be significantly orthostatic earlier today). I have discontinued his spironolactone. Given the fact that does get dizzy at home, it might be worthwhile to except a slightly higher blood pressure in this gentleman in order to avoid orthostatic hypotension. I would also like to check his BNP. I thank you for letting me be involved in his care. I have advised the patient to follow up with as an outpatient. Incidentally I also explained the patient about being in charge of his Lasix. I have advised him to keep a weight chart where he should record his weight every morning.
--- NOTE | 2017-01-09 18:42 | NUR ---
Pain Pt taken down to CT and was unable to lay flat for scan due to pain. Tech called this RN and I spoke to patient. Pt requests PO tylenol, this was administered and successful. rn lpn lvn called and patient taken down for another attemp. Pt able to lay flat for scan. Bed is currently locked and call light w/in reach. [place] alarm on
--- NOTE | 2017-01-09 18:47 | NUR ---
Case Management: IMM explained to patient and spouse at 1700, all questions answered. Signed original placed in chart, copy given to patient. Charlotte García RN
--- NOTE | 2017-01-09 23:09 | NUR ---
paged According to pt., pt. was concerned about prior insomnia he had been experiencing prior to hospitalization coming back. Nelly ROBERTS paged. Nelly ROBERTS ordered 5mg dose of Melatonin PO. Melatonin PO given.
[2017-01-10 00:02] VITALS: BP 111/75; PULSE 139; RESP 22; O2SAT 96
[2017-01-10 00:18] VITALS: PULSE 128
[2017-01-10 04:24] VITALS: BP 106/68; PULSE 106; RESP 26; O2SAT 96
[2017-01-10 06:42] LABS: INR 3.14 ratio
[2017-01-10 07:56] VITALS: BP 101/65; PULSE 133
[2017-01-10 08:00] VITALS: PULSE 127
[2017-01-10] MEDS: Insulin LISPRO 300 Unit/3 mL Inj SUBQ SCH (08:04)
[2017-01-10 09:05] VITALS: BP 110/77; PULSE 120; RESP 20; O2SAT 97
--- NOTE | 2017-01-10 10:51 | PCM.DIMED ---
Discharge Instructions Date of Service Jan 10, 2017 Dates of Hospitalization Jan 09, 2017 at 03:54 Discharge Diagnosis Discharge Diagnosis Traumatic fall down steps Chronic atrial fibrillation on long-term anticoagulation therapy Internal carotid stenosis: Heart failure with reduced ejection fraction, chronic. Presumed stable Non-insulin using diabetes mellitus, chronic Hypertension, chronic. Diet Heart Healthy, Diabetic Activity No restrictions Call your provider Shortness of breath, Chest pain, Other (Lightheadedness) Patient Instructions Follow-up in: 1 week (with Cardiology. If they can't see you by next week follow up with your primary doctor so they can check your blood pressure and heart rate) Kalpana Urbano MD Jan 10, 2017 10:51
[2017-01-10] MEDS ORDERED: LISI10TA PO (10:55)
[2017-01-10] MEDS ORDERED: METO25TA6 PO (10:55)
--- NOTE | 2017-01-10 10:58 | PCM.DC.MED ---
Discharge Summary Date of Service Jan 10, 2017 Dates of Hospitalization Date of Hospital Admission Jan 09, 2017 at 03:54 Date of Discharge: Jan 10, 2017 Providers: Admitting Physician: Devaughn Medley MD Primary Care Physician: Temitope Buenrostro PA-C Attending Physician: Devaughn Medley MD Diagnosis at Time of Discharge Diagnosis at Time of Discharge Traumatic fall down steps Chronic atrial fibrillation on long-term anticoagulation therapy Internal carotid stenosis: Heart failure with reduced ejection fraction, chronic. Presumed stable Non-insulin using diabetes mellitus, chronic Hypertension, chronic. Consultations Dr Adams, Cardiology Procedures XRay, CTs & MRIs PROCEDURE: CT BRAIN WITHOUT CONTRAST ([id number]) INDICATIONS: stair level fall TECHNIQUE: Noncontrast 4.5 mm thick angled axial sections acquired from the foramen magnum to the vertex, with coronal reformats. COMPARISON: None. FINDINGS: Image quality: Excellent. CSF spaces: Basal cisterns are patent. No extra-axial fluid collections. The ventricles are symmetric in size and shape. Brain: No intracranial bleeds or masses. There is cerebral volume loss for age , with resultant ventricular and sulcal prominence. There are periventricular and deep white matter chronic small vessel ischemic changes. There is intracranial internal carotid artery and vertebral artery atherosclerosis. Skull and face: Calvarium and visualized facial bones appear intact, without suspicious lesions. Small posterior left parietal scalp hematoma is noted. Scattered soft tissue air is noted in the right temporal cyst gout, right frontal scalp and the right infratemporal fossa. Small amount of air noted in the right internal jugular vein and the right C1 transverse foramen. Etiology of the vascular soft tissue air is uncertain. Sinuses: Visualized sinuses and mastoids are clear. IMPRESSION: 1. No acute intracranial disease process. 2. Small left parietal scalp hematoma. 3. Right facial soft tissue air of uncertain etiology. Dictated by: Nancy Moody MD, PhD on 01/09/2017 at 8:34 Approved by: Nancy Moody MD, PhD on 01/09/2017 at 8:38 PROCEDURE: US BILATERAL DUPLEX DOPPLER IMAGING OF THE CAROTIDS ([id number]) INDICATIONS: IC carotid stenosis on CT TECHNIQUE: Color and pulse Doppler interrogation was performed of both carotid systems, with image documentation and velocity measurements. COMPARISON: [facility], CT, CT CERVICAL SPINE WO CON, 01/09/2017, 2: 34. FINDINGS: All stenosis calculations are based on NASCET criteria. Right side: Brachial blood pressure: 104/71 mm Hg. Common Carotid Artery(Distal) PSV: 46.90 cm/s Internal Carotid Artery PSV- Proximal: 68 cm/s EDV - Proximal: 25 cm/s External Carotid Artery(Proximal) PSV: 58.90 cm/s ICA/CCA PSV ratio: 1.5 [place] scale imaging description: Moderate scattered plaque. Percent internal carotid artery stenosis: Less than 50%. Vertebral artery: Flow direction is antegrade. Left side: Brachial blood pressure: 106/73 mm Hg. Common Carotid Artery(Distal) PSV: 59.30 cm/s Internal Carotid Artery PSV - Proximal: 42.10 cm/s Mid-lon.30 cm/s Distal: 60.60 cm/s EDV - Proximal: 11.10 cm/s Mid-lon.10 cm/s Distal: 14.30 cm/s External Carotid Artery(Proximal) PSV: 43.30 cm/s ICA/CCA PSV ratio: 1.0 [place] scale imaging description: Moderate scattered plaque. Percent internal carotid artery stenosis: Less than 50%. Vertebral artery: Flow direction is antegrade. IMPRESSION: Less than 50% bilateral internal carotid artery stenosis. PROCEDURE: CT BRAIN WITHOUT CONTRAST ([id number]) INDICATIONS: repeat-eval bleed 2/2 GLF on coumadin TECHNIQUE: Noncontrast 4.5 mm thick angled axial sections acquired from the foramen magnum to the vertex, with coronal reformats. COMPARISON: [facility], CT, CT BRAIN WO CON, 01/09/2017, 2:34. FINDINGS: Image quality: Excellent. CSF spaces: Basal cisterns are patent. No extra-axial fluid collections. The ventricles are symmetric in size and shape. Brain: No intracranial bleeds or masses. There is cerebral volume loss for age , with resultant ventricular and sulcal prominence. There are periventricular and deep white matter chronic small vessel ischemic changes asymmetrically mildly more prominent at the right frontal region and on the left where a prior stroke likely has occurred (image 19).. There is intracranial internal carotid artery atherosclerosis. Skull and face: Calvarium and visualized facial bones appear intact, without suspicious lesions. A very small amount of gas within the deep soft tissues adjacent to the posterior lateral border of the right maxillary sinus has resolved, with reference to the CT scan from earlier this morning ( approximately 12 hours ago). Left frontal scalp swelling again noted over the forehead. Sinuses: Visualized sinuses and mastoids are clear. IMPRESSION: No intracranial hemorrhage seen. Moderate microvascular atherosclerotic change including a presumed prior stroke right frontal brain parenchyma within the deep white matter, stable from the study 12 hours ago. Resolution of a very small amount of gas in the deep soft tissues of the right face adjacent to the posterior border of the right maxillary sinus. This therefore appears to have posttraumatic in origin. Brief History Mr. 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 He was admitted for evaluation and monitoring any potential injury secondary to this fall. Hospital day 1 Mr. Bajwa states that he fell this evening as he got up from his chair on the first level of his home, and he was on his way upstairs to sleep in his bedroom , when he reached the top step and was unable to grab the hand rail, and as he was reaching for the handrail he tumbled down approximately 15 steps sideways. He denies any loss of consciousness, shortness of breath, dizziness, gait instability, acute vision changes, headache prior to this event, or any other inciting factor. He does not believe he tripped, blacked out, or was dizzy at the top of the steps. He states he is uncertain why he fell, but he does remember the sensation of falling, and attempting to reach for the handrail. He notes he uses a walker or cane at baseline, but is able to effectively ambulate around his home and perform activities of daily living without any difficulties. He states that his injury leading to this admission was not related to his recent right knee replacement, nor does he believe is related to his recent admission in [place], which was for treatment of left lower extremity cellulitis. He states that he has been followed by wound care since that hospitalization in [place], with most recent wound care visit the day prior to admission. He states he also recently began physical therapy for his right knee replacement. Patient was recently seen by cardiology 12/28, and was in stable condition at that time. In the ED, multiple imaging studies were obtained including EKG which revealed atrial fibrillation and a paced rhythm, chest x-ray which revealed pleural effusions bilaterally and cardiomegaly consistent with CHF, cervical spine x- ray which did not reveal any acute fracture; CT head did not reveal any acute intracranial injury, but did reveal a posterior scalp hematoma and chronic microvascular ischemic disease and volume loss; CT cervical spine reveal any evidence of fracture or subluxation, but there was extensive degenerative changes; initial labs revealed WBC 6.5, hemoglobin 11.1, electrolytes within range, creatinine 1.11, glucose of 128. This patient was seen in the ED and was in stable condition, awaiting transport to the floor. Hospital Course Mr. 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 He was admitted for evaluation and monitoring any potential injury secondary to this fall. Hospital day 1 Traumatic fall down steps, acute, present on admission. - Initial CT scan and repeat one did not reveal any acute intracranial abnormality - Repeat head CT between noon and 2 PM; ordered: We will recheck for increasing hematoma - Physical therapy evaluation: appropriate for return home - Telemetry - Afib with rate mostly high 120's -- Coumadin held during stay/evaluation Chronic atrial fibrillation on long-term anticoagulation therapy. Presumed stable - Admit: INR 2.72 - Held anticoagulation initially secondary to possibility of bleeding - Dr Adams consulted: - Carvedilol discontinued - Metoprolol started at 50 mg q 8 hr, rate still high 120's (with SBP 100- 110) so discussed on phone with Dr Adams who requested increase to 75 mg tid and DC home - Dr Admas will arrange referral to EPS Dr Cespedes Internal carotid stenosis: -- follow carotid ultrasound is ordered, no sig stenosis Heart failure with reduced ejection fraction, chronic. Presumed stable -- Dr Angie FELIX'd spironolactone and discussed self dosing of Lasix with the patient -- Because of borderline BP/orthostasis and planned increase of Metoprolol I decreased his discharge dose of Lisinopril to 10 mg Non-insulin using diabetes mellitus, chronic. Presumed stable - HbA1c 12/2016:6.3 - Held oral medications, resume at DC - Low-dose correctional scale in place Hypertension, chronic. Presumed stable - Med changes as above Osteoarthritis of right knee status post arthroplasty, chronic. Presumed stable - Procedure reported to have been completed 10/2016 - PT eval for gait stability Exam Vital Signs (Last) Date Time Temp Pulse Resp B/P Pulse Ox O2 Delivery O2 Flow Rate FiO2 01/10/17 09:05 36.0 120 20 110/77 97 Nasal Cannula 2.00 Exam Alert, oriented, no complaints Heart irreg, tele Afib with rate mostly 120's Lungs: clear after initial deep breaths Legs: venous stasis changes, 1+ edema Test 01/09/17 02:15 01/09/17 07:10 01/09/17 08:25 01/10/17 04:27 Total Bilirubin 0.9mg/dL (0.0-1.2) Aspartate Amino Transf (AST/SGOT) 15U/L (0-50) Alanine Aminotransferase (ALT/SGPT) 11U/L (0-44) Alkaline Phosphatase 62U/L (25-160) Troponin T 0.010ug/L (0.0-0.011) Total Protein 6.7g/dL (6.4-8.4) Albumin 3.5g/dL (3.4-5.0) Lipase 11U/L (13-60) Alcohols < 10mg/dL (0-10) White Blood Count 7.8th/mm3 (3.8-10.1) Red Blood Count 3.80mil/mm3 (4.40-5.80) Mean Corpuscular Volume 91.8fL (81-100) Mean Corpuscular Hemoglobin 27.6pg (27.0-35.0) Mean Corpuscular Hemoglobin Concent 30.1% (32.0-37.0) Red Cell Distribution Width 16.3% (12.3-15.4) Platelet Count 148bil/L (150-400) Neutrophils (%) (Auto) 86.5% (40-74) Lymphocytes (%) (Auto) 6.9% (14-46) Monocytes (%) (Auto) 6.3% (4-12) Eosinophils (%) (Auto) 0.1% (0-5) Basophils (%) (Auto) 0.1% (0-3) Sodium Level 141mEq/L (134-144) Potassium Level 4.8mEq/L (3.5-5.2) Chloride Level 104mEq/L (97-108) Carbon Dioxide Level 20mmol/L (18-29) Blood Urea Nitrogen 33mg/dL (8-27) Creatinine 0.99mg/dL (0.76-1.27) Estimat Glomerular Filtration Rate 79mL/min (>59) Glucose Level 139mg/dL (60-99) Calcium Level 9.5mg/dL (8.5-10.1) Phosphorus Level 4.0mg/dL (2.5-4.9) Magnesium Level 1.7mg/dL (1.6-2.6) Thyroid Stimulating Hormone (TSH) 1.980uIU/mL (0.450-4.500) Free Thyroxine 0.95ng/dL (0.82-1.77) Urine Color Yellow (YELLOW) Urine Appearance Hazy (CLEAR,HAZY) Urine pH 5.5 (5.0-8.0) Urine Specific [place] 1.029 (1.003-1.035) Urine Protein 100mg/dL (NEG,TRACE) Urine Glucose (UA) Negativemg/dL (NEGATIVE) Urine Ketones Tracemg/dL (NEGATIVE) Urine Occult Blood Negative (NEGATIVE) Urine Nitrite Negative (NEGATIVE) Urine Bilirubin Negative (NEGATIVE) Urine Urobilinogen Normalmg/dL (NORMAL) Urine Leukocyte Esterase Negative (NEGATIVE) Urine RBC 0-2/hpf (0-2) Urine WBC 0-5/hpf (0-5) Urine Epithelial Cells Few/hpf (NONE-MOD) Urine Crystals Amorphous urates (NONE Urine Bacteria Moderate/hpf (NONE-FEW) Urine Hyaline Casts 5/20/lpf (NONE) Urine Granular Casts None seen (NONE SEEN) Urine Waxy Casts None seen (NONE SEEN) Urine Red Blood Cell Casts None seen (NONE SEEN) Urine White Blood Cell Casts None seen (NONE SEEN) Urine Mucus Present (None Seen) Urine Trichomonas None seen (NONE SEEN) Urine Yeast None (NONE SEEN) Urinalysis Comment None Pro-B-Type Natriuretic Peptide 2919pg/mL (0-486) Test 01/10/17 05:47 Hemoglobin 10.6g/dL (13.8-17.2) Hematocrit 35.2% (41.0-50.0) Prothrombin Time 34.4sec (8.1-12.5) Prothromb Time International Ratio 3.14ratio Activated Partial Thromboplast Time 38.5sec (22.8-33.0) Discharge Medications Discharge Medications Furosemide (Furosemide) 20 Mg Tab 20 MG PO DAILY (Reported) Glipizide (Glipizide) 5 Mg Tablet 5 MG PO DAILY (Reported) Lisinopril (Lisinopril) 10 Mg Tablet 5 MG PO DAILY Prescribed by: BHAVNA NIÑO MD Magnesium Oxide (Magnesium Oxide) 400 Mg Tablet 400 MG PO DAILY (Reported) Metformin ER (Metformin ER) 1,000 Mg Tablet 1,000 MG PO BID (Reported) Metoprolol Tartrate (Metoprolol Tartrate) 25 Mg Tablet 75 MG PO ,, Prescribed by: BHAVNA NIÑO MD Rosuvastatin Calcium (Crestor) 5 Mg Tablet 2.5 MG PO WEEKLY (Reported) Warfarin Sodium (Warfarin Sodium) 5 Mg Tablet 5 MG PO Saturday (Reported) Warfarin Sodium (Warfarin Sodium) 2.5 Mg Tablet 2.5 MG PO Sat,T,W,Th,,S ( Reported) Miscellaneous Medications Multivitamin (Once Daily) 1 Each Tablet 1 EACH PO (Reported) Vitamin B Complex 100 No.2 (B-100 Complex) 100 Mg Tablet.er 100 MG PO (Reported ) Followup Plan Discharge Diet: Heart Healthy, Diabetic Discharge Activity: No restrictions Bhavna Niño MD Jan 10, 2017 10:58
--- NOTE | 2017-01-10 12:02 | NUR ---
Social Work: Readiness for Discharge/Discharge Data: EMR reviewed. Pt is on day 1 of hospitalization for stair fall, blunt head trauma per H&P. Pt to discharge today. PT recommends pt to go home with no needs at time of discharge. Pt will go home with via POV at time of discharge. SW will continue to follow. Assessment: Pt who is independent at baseline. Plan: Pt will discharge home with via POV when he is ready. No discharge needs. RENEE Banerjee
--- NOTE | 2017-01-10 13:21 | NUR ---
Discharge pt d/c'd home at approx 1145. career center director reviewed instructions and answered all questions. IV d/c'd intact. Tele removed. Pt taken to 's POV via w/c and left w/ all belongings and RX were transmitted to Gregorio Delgado.
--- NOTE | 2017-01-20 17:18 | PCM.HPMED ---
Subjective Date of Service January 20, 2017 Primary Provider: Admitting Physician: Devaughn Medley MD Primary Care Physician: Temitope Buenrostro PA-C Attending Physician: Devaughn Medley MD History of Present Illness: Allergies Coded Allergies: Pqyxiqb-Cau-Kma Reductase Inhibitor (Verified Allergy, Severe, 01/09/17) unable to walk hydrocodone (Verified Allergy, Severe, Shortness of Breath, 01/09/17) atorvastatin (Verified Allergy, Intermediate, muscle weakness, "can't walk ", 01/09/17) fluticasone (Verified Allergy, Intermediate, Hives, 01/09/17) gemfibrozil (Verified Allergy, Intermediate, 01/09/17) pt cannot remember reaction but states not being able to walk was r/t only to statins. simvastatin (Verified Allergy, Intermediate, muscle weakness "can't walk" , 01/09/17) Uncoded Allergies: crestor (Allergy, Intermediate, muscle weakness, can't walk, 10/31/07) red yeast rice (Allergy, Unknown, 10/31/07) H Social History Occupation: retired Assessment & Plan MichaelTrace Cruz DO January 20, 2017 17:18 admission in [place], which was for treatment of left lower extremity cellulitis. He states that he has been followed by wound care since that hospitalization in [place], with most recent wound care visit the day prior to admission. He states he also recently began physical therapy for his right knee replacement. Patient was recently seen by cardiology 12/28, and was in stable condition at that time. In the ED, multiple imaging studies were obtained including EKG which revealed atrial fibrillation and a paced rhythm, chest x-ray which revealed pleural effusions bilaterally and cardiomegaly consistent with CHF, cervical spine x- ray which did not reveal any acute fracture; CT head did not reveal any acute intracranial injury, but did reveal a posterior scalp hematoma and chronic microvascular ischemic disease and volume loss; CT cervical spine reveal any evidence of fracture or subluxation, but there was extensive degenerative changes; initial labs revealed WBC 6.5, hemoglobin 11.1, electrolytes within range, creatinine 1.11, glucose of 128. This patient was seen in the ED and was in stable condition, awaiting transport to the floor. Allergies Coded Allergies: Ejzeoeo-Zkt-Uhk Reductase Inhibitor (Verified Allergy, Severe, 01/09/17) unable to walk hydrocodone (Verified Allergy, Severe, Shortness of Breath, 01/09/17) atorvastatin (Verified Allergy, Intermediate, muscle weakness, "can't walk ", 01/09/17) fluticasone (Verified Allergy, Intermediate, Hives, 01/09/17) gemfibrozil (Verified Allergy, Intermediate, 01/09/17) pt cannot remember reaction but states not being able to walk was r/t only to statins. simvastatin (Verified Allergy, Intermediate, muscle weakness "can't walk" , 01/09/17) Uncoded Allergies: crestor (Allergy, Intermediate, muscle weakness, can't walk, 10/31/07) red yeast rice (Allergy, Unknown, 10/31/07) Home Medications Start Date Medication Directions Stop Date 12/08/2015 carvedilol 6.25 mg tablet take 1.5 tablets by oral route 2 times every day with food 05/18/2016 Crestor 5 mg tablet take 0.5 tablet by oral route every week Dulcolax (bisacodyl) 10 mg rectal suppository insert 1 suppository by rectal route every day as needed for constipation flaxseed oil 1,000 mg capsule Take one capsule twice a day Fleet Enema 19 gram-7 gram/118 mL 12/28/2016 furosemide 40 mg tablet 1 tablet by mouth daily 12/21/2016 glipizide 5 mg tablet take 1 tablet by oral route every day GLUCOSAMINE-CHONDROITIN 03/06/2016 lisinopril 10 mg tablet take 1 tablet by oral route every day 12/21/2016 magnesium oxide 400 mg tablet 1 tablet by mouth daily 10/18/2016 metformin 1,000 mg tablet take 1 tablet by oral route 2 times every day with morning and evening meals 08/23/2009 Multi-Day 1 tablet by mouth daily OneTouch Ultra Test strips test one times a day 09/21/2016 spironolactone 25 mg tablet take 1 tablet by oral route every day ( stop potassium, triamterene, hydrochlorothiazide) Tylenol 325 mg tablet take 2 tablet by oral route every 4 hours as needed Vitamin D3 1,000 unit tablet take 1 tablet by oral route every day 10/09/2016 warfarin 5 mg tablet take 0.5 tablet (2.5mg) daily except take one tablet (5mg) on Tuesdays PMH Mr. 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 He was admitted for evaluation and monitoring any potential injury secondary to this fall. Hospital day 1 Mr. Bajwa states that he fell this evening as he got up from his chair on the first level of his home, and he was on his way upstairs to sleep in his bedroom , when he reached the top step and was unable to grab the hand rail, and as he was reaching for the handrail he tumbled down approximately 15 steps sideways. He denies any loss of consciousness, shortness of breath, dizziness, gait instability, acute vision changes, headache prior to this event, or any other inciting factor. He does not believe he tripped, blacked out, or was dizzy at the top of the steps. He states he is uncertain why he fell, but he does remember the sensation of falling, and attempting to reach for the handrail. He notes he uses a walker or cane at baseline, but is able to effectively ambulate around his home and perform activities of daily living without any difficulties. He states that his injury leading to this admission was not related to his recent right knee replacement, nor does he believe is related to his recent admission in [place], which was for treatment of left lower extremity cellulitis. He states that he has been followed by wound care since that hospitalization in [place], with most recent wound care visit the day prior to admission. He states he also recently began physical therapy for his right knee replacement. Patient was recently seen by cardiology 12/28, and was in stable condition at that time. In the ED, multiple imaging studies were obtained including EKG which revealed atrial fibrillation and a paced rhythm, chest x-ray which revealed pleural effusions bilaterally and cardiomegaly consistent with CHF, cervical spine x- ray which did not reveal any acute fracture; CT head did not reveal any acute intracranial injury, but did reveal a posterior scalp hematoma and chronic microvascular ischemic disease and volume loss; CT cervical spine reveal any evidence of fracture or subluxation, but there was extensive degenerative changes; initial labs revealed WBC 6.5, hemoglobin 11.1, electrolytes within range, creatinine 1.11, glucose of 128. This patient was seen in the ED and was in stable condition, awaiting transport to the floor. Review of Systems: Complete ROS obtained: Pertinent positives and negatives as noted in history of present illness Allergies Coded Allergies: Rrzstix-Iho-Xtt Reductase Inhibitor (Verified Allergy, Severe, 01/09/17) unable to walk hydrocodone (Verified Allergy, Severe, Shortness of Breath, 01/09/17) atorvastatin (Verified Allergy, Intermediate, muscle weakness, "can't walk ", 01/09/17) fluticasone (Verified Allergy, Intermediate, Hives, 01/09/17) Aortic stenosis status post prosthetic aVR Coronary artery disease status post four-vessel CABG Reduced ejection fraction heart failure from ischemic cardiomyopathy Third-degree AV block status post [place] [place] dual-chamber pacer Atrial fibrillation on long-term anticoagulation therapy Degenerative joint disease of bilateral knees status post right total knee replacement Type II diabetes Hyperlipidemia Hypertension Bilateral lower extremity venous stasis changes Left lower extremity cellulitis secondary to fluid overload Surgical History Mr. 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 He was admitted for evaluation and monitoring any potential injury secondary to this fall. Hospital day 1 Mr. Bajwa states that he fell this evening as he got up from his chair on the first level of his home, and he was on his way upstairs to sleep in his bedroom , when he reached the top step and was unable to grab the hand rail, and as he was reaching for the handrail he tumbled down approximately 15 steps sideways. He denies any loss of consciousness, shortness of breath, dizziness, gait instability, acute vision changes, headache prior to this event, or any other inciting factor. He does not believe he tripped, blacked out, or was dizzy at the top of the steps. He states he is uncertain why he fell, but he does remember the sensation of falling, and attempting to reach for the handrail. He notes he uses a walker or cane at baseline, but is able to effectively ambulate around his home and perform activities of daily living without any difficulties. He states that his injury leading to this admission was not related to his recent right knee replacement, nor does he believe is related to his recent admission in [place], which was for treatment of left lower extremity cellulitis. He states that he has been followed by wound care since that hospitalization in [place], with most recent wound care visit the day prior to admission. He states he also recently began physical therapy for his right knee replacement. Patient was recently seen by cardiology 12/28, and was in stable condition at that time. In the ED, multiple imaging studies were obtained including EKG which revealed atrial fibrillation and a paced rhythm, chest x-ray which revealed pleural effusions bilaterally and cardiomegaly consistent with CHF, cervical spine x- ray which did not reveal any acute fracture; CT head did not reveal any acute intracranial injury, but did reveal a posterior scalp hematoma and chronic microvascular ischemic disease and volume loss; CT cervical spine reveal any evidence of fracture or subluxation, but there was extensive degenerative changes; initial labs revealed WBC 6.5, hemoglobin 11.1, electrolytes within range, creatinine 1.11, glucose of 128. This patient was seen in the ED and was in stable condition, awaiting transport to the floor. Review of Systems: Complete ROS obtained: Pertinent positives and negatives as noted in history of present illness Allergies Coded Allergies: Qpzzdiq-Cit-Daa Reductase Inhibitor (Verified Allergy, Severe, 01/09/17) unable to walk hydrocodone (Verified Allergy, Severe, Shortness of Breath, 01/09/17) atorvastatin (Verified Allergy, Intermediate, muscle weakness, "can't walk ", 01/09/17) fluticasone (Verified Allergy, Intermediate, Hives, 01/09/17) gemfibrozil (Verified Allergy, Intermediate, 01/09/17) pt cannot remember reaction but states not being able to walk was r/t only to statins. simvastatin (Verified Allergy, Intermediate, muscle weakness "can't walk" , 01/09/17) Uncoded Allergies: crestor (Allergy, Intermediate, muscle weakness, can't walk, 10/31/07) red yeast rice (Allergy, Unknown, 10/31/07) Home Medications Obtained from [employer] documentation dated 01/01/17 Aortic valve replacement, bioprosthetic Four-vessel CABG Dual-chamber pacer placement Unspecified eye surgery Right knee replacement Family History Father of myocardial infarction at age of 62, mother at the age of 45 secondary to suicide Social History Occupation: retired Hx Alcohol Use: No Hx Substance Use: No Hx Tobacco Use: No Smoking Status: Never Smoker Living Arrangement: with Family Exam Lab and Diagnostics X-Rays, CTs and MRIs PROCEDURE: CT BRAIN WITHOUT CONTRAST ([id number]) INDICATIONS: stair level fall TECHNIQUE: Noncontrast 4.5 mm thick angled axial sections acquired from the foramen magnum to the vertex, with coronal reformats. COMPARISON: None. FINDINGS: Image quality: Excellent. CSF spaces: Basal cisterns are patent. No extra-axial fluid collections. The ventricles are symmetric in size and shape. Brain: No intracranial bleeds or masses. There is cerebral volume loss for age , with resultant ventricular and sulcal prominence. There are periventricular and deep white matter chronic small vessel ischemic changes. There is intracranial internal carotid artery and vertebral artery atherosclerosis. Skull and face: Calvarium and visualized facial bones appear intact, without suspicious lesions. Small posterior left parietal scalp hematoma is noted. Scattered soft tissue air is noted in the right temporal cyst gout, right frontal scalp and the right infratemporal fossa. Small amount of air noted in the right internal jugular vein and the right C1 transverse foramen. Etiology of the vascular soft tissue air is uncertain. Sinuses: Visualized sinuses and mastoids are clear. IMPRESSION: 1. No acute intracranial disease process. 2. Small left parietal scalp hematoma. 3. Right facial soft tissue air of uncertain etiology. Dictated by: Nancy Moody MD, PhD on 01/09/2017 at 8:34 Approved by: Nancy Moody MD, PhD on 01/09/2017 at 8:38 PROCEDURE: US BILATERAL DUPLEX DOPPLER IMAGING OF THE CAROTIDS ([id number]) INDICATIONS: IC carotid stenosis on CT TECHNIQUE: Color and pulse Doppler interrogation was performed of both carotid systems, with image documentation and velocity measurements. COMPARISON: [facility], CT, CT CERVICAL SPINE WO CON, 01/09/2017, 2: 34. FINDINGS: All stenosis calculations are based on NASCET criteria. Right side: Brachial blood pressure: 104/71 mm Hg. Common Carotid Artery(Distal) PSV: 46.90 cm/s Internal Carotid Artery PSV- Proximal: 68 cm/s EDV - Proximal: 25 cm/s External Carotid Artery(Proximal) PSV: 58.90 cm/s ICA/CCA PSV ratio: 1.5 [place] scale imaging description: Moderate scattered plaque. Percent internal carotid artery stenosis: Less than 50%. Vertebral artery: Flow direction is antegrade. Left side: Brachial blood pressure: 106/73 mm Hg. Common Carotid Artery(Distal) PSV: 59.30 cm/s Internal Carotid Artery PSV - Proximal: 42.10 cm/s Mid-lon.30 cm/s Distal: 60.60 cm/s EDV - Proximal: 11.10 cm/s Mid-lon.10 cm/s Distal: 14.30 cm/s External Carotid Artery(Proximal) PSV: 43.30 cm/s ICA/CCA PSV ratio: 1.0 [place] scale imaging description: Moderate scattered plaque. Percent internal carotid artery stenosis: Less than 50%. Vertebral artery: Flow direction is antegrade. IMPRESSION: Less than 50% bilateral internal carotid artery stenosis. PROCEDURE: CT BRAIN WITHOUT CONTRAST ([id number]) INDICATIONS: repeat-eval bleed 2/2 GLF on coumadin TECHNIQUE: Noncontrast 4.5 mm thick angled axial sections acquired from the foramen magnum to the vertex, with coronal reformats. COMPARISON: [facility], CT, CT BRAIN WO CON, 01/09/2017, 2:34. FINDINGS: Image quality: Excellent. CSF spaces: Basal cisterns are patent. No extra-axial fluid collections. The ventricles are symmetric in size and shape. Brain: No intracranial bleeds or masses. There is cerebral volume loss for age , with resultant ventricular and sulcal prominence. There are periventricular and deep white matter chronic small vessel ischemic changes asymmetrically mildly more prominent at the right frontal region and on the left where a prior stroke likely has occurred (image 19).. There is intracranial internal carotid artery atherosclerosis. Skull and face: Calvarium and visualized facial bones appear intact, without suspicious lesions. A very small amount of gas within the deep soft tissues adjacent to the posterior lateral border of the right maxillary sinus has resolved, with reference to the CT scan from earlier this morning ( approximately 12 hours ago). Left frontal scalp swelling again noted over the forehead. Sinuses: Visualized sinuses and mastoids are clear. IMPRESSION: No intracranial hemorrhage seen. Moderate microvascular atherosclerotic change including a presumed prior stroke right frontal brain parenchyma within the deep white matter, stable from the study 12 hours ago. Resolution of a very small amount of gas in the deep soft tissues of the right face adjacent to the posterior border of the right maxillary sinus. This therefore appears to have posttraumatic in origin. Assessment & Plan Mr. 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 - Transition form oral Toresimide to IV Lasix at this time. - Continue close monitoring of In and out in addition to renal function - Pt will be monitored on continuous telemetry monitoring - Continue addition home medications for heart failure, heart healthy/.low sodium diet and fluid restriction continued. #Acute on chronic renal failure: - Appears prenal in nature - Anticipate due to under perfusion related to heart failure - Continue to monitor, limit diuretic use as possible - Consider Nephrology consult if condition proves progressive though anticipate this is an extra-renal cause. #Bilateral lower extremity/Scrotal edema - Treated as noted above - Will consult wound cause if needed for skin ulceration/break down. #Atrial fibrillation #CIARRA: - Consult respiratory therapy to aid in installation of CPAP for sleep #Hyperlipidemia: - Pt intolerant of statin medication #Non-insulin dependant DM - Pt placed on SSI at this time - Holding oral medications while hospitalized Pain Evaluation: Adequate Pain Control GI Prophylaxis: Not indicated VTE Prophylaxis Indicated: Contraindicated VTE Prophylaxis: SCDs Resuscitation Status: CPR: Attempt Resuscitation Trace Rodriguez DO January 20, 2017 17:18
== END 2017-01-10 11:50 | disposition home or self-care (01) | DRG 914 ==
LOC: SED 02:12 → OFED 03:54 → OBSVTOIN 03:54 → OSC 05:38
PROVIDERS: ADMIT Hospitalist; ATTEND Hospitalist
DX: S09.90XA Unspecified injury of head, initial encounter (principal); M25.511 Pain in right shoulder; M25.512 Pain in left shoulder; S80.211A Abrasion, right knee, initial encounter; S50.812A Abrasion of left forearm, initial encounter; W10.9XXA Fall (on) (from) unspecified stairs and steps, initial encounter; I48.2 Chronic atrial fibrillation; I25.10 Atherosclerotic heart disease of native coronary artery without angina pectoris; I10 Essential (primary) hypertension; N40.0 Benign prostatic hyperplasia without lower urinary tract symptoms; E11.42 Type 2 diabetes mellitus with diabetic polyneuropathy; M54.12 Radiculopathy, cervical region; Z96.651 Presence of right artificial knee joint; E78.5 Hyperlipidemia, unspecified; M17.11 Unilateral primary osteoarthritis, right knee; Z79.01 Long term (current) use of anticoagulants; Z95.0 Presence of cardiac pacemaker; Y92.009 Unspecified place in unspecified non-institutional (private) residence as the place of occurrence of the external cause; Z95.2 Presence of prosthetic heart valve; Z95.1 Presence of aortocoronary bypass graft

== ENCOUNTER 2017-01-20 14:41 | Inpatient (IN) | payer MEDICARE ==
[~2017-01-20] VITALS: Ht 188 cm; Wt 136.6 kg
[~2017-01-20 14:41] MED LIST changes: -AMLO5TAB2 PO; -ASPI-628 PO; -CHOL100094 PO; -FENO145T19 PO; -FISH1CAP15 PO; -FRSM80T PO; +FUR20 PO; +GLPZ5T PO; -HYDR25TA4 PO; -LISI-567 PO; +LISI10TA PO; +METF-496 PO; -METF10002 PO; +METO25TA6 PO; +MULT-666 PO; -MULT1TAB70 PO; -NIAC500T8 PO; -POTA20TA16 PO; +ROSU5TAB PO; -SITA100T12 PO; +VITA100T4 PO; +WARF2.5T82 PO
[2017-01-20 15:56] VITALS: BP 105/71; PULSE 102; RESP 26; O2SAT 95
[2017-01-20 16:02] VITALS: PULSE 105
[2017-01-20] MEDS ORDERED: LISI-567 PO (16:50)
[2017-01-20] MEDS ORDERED: METO-274 PO (16:50)
[2017-01-20] MEDS ORDERED: INSLIS SUBQ (17:00)
[2017-01-20] MEDS ORDERED: HEPA1DIS9 IV (17:00)
[2017-01-20] MEDS ORDERED: Alum-Mag Hydrox-Simeth 30 mL Suspension PO PRN (17:00)
[2017-01-20] MEDS ORDERED: HYDR-4003 PO (17:00)
[2017-01-20] MEDS ORDERED: Polyethylene Glycol (PEG) 17 Gm Powder PO PRN (17:00)
[2017-01-20] MEDS ORDERED: Heparin 5,000 Unit/mL Inj SUBQ SCH (17:00)
[2017-01-20] MEDS ORDERED: DIPH25CA6 PO (17:00)
[2017-01-20] MEDS ORDERED: Ondansetron 2 mg/mL 2 mL Inj IVPUSH PRN (17:00)
[2017-01-20] MEDS ORDERED: AMIO200T PO (17:00)
[2017-01-20] MEDS ORDERED: POLY500P23 PO (17:13)
[2017-01-20] MEDS ORDERED: SPIR25TA3 PO ×2 (17:13→17:23)
[2017-01-20] MEDS ORDERED: CHOL200025 PO (17:13)
[2017-01-20] MEDS ORDERED: TORS100T3 PO ×2 (17:13→17:23)
[2017-01-20] MEDS ORDERED: NITR0.4T6 SL (17:13)
[2017-01-20] MEDS ORDERED: AMLO2.5T PO (17:13)
[2017-01-20] MEDS ORDERED: CARV6.252 PO (17:13)
--- NOTE | 2017-01-20 17:22 | PCM.HPMED ---
Subjective Date of Service January 20, 2017 Primary Provider: Admitting Physician: Milton Jefferson Primary Care Physician: Temitope Buenrostro PA-C Attending Physician: Milton Jefferson Chief Complaint: Swelling of legs and scrotum. History of Present Illness: Mr. 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 Pt initially present to on 01/16/2017 with worsening edema and initially managed with a titration of oral loop diuertic (toresmide). He was slow to respond however, edema actually worsened, and his chronic kidney failure as well was noted to become exacerbated. Repeat echo demonstrated a profound heart failure of unclear chronicity (either stable or worsening) which is none the less likely accounting for worsening edema and likely underperfusion of kidney as well leading to the renal condition. Pt. arrived to hospital in stable but guarding condition. He notes the scrotal swelling is most concerning issue, but legs are uncomfortable as well. He denies chest pain, also denies shortness of breath. He has noted some flu like symptoms, nasal congestions in the last couple of days. NO fever/chills. NO other complaints. Review of Systems: A 10 point review of systems conducted and entirely negative excepting pertinent positives and negatives included in above HPI. Allergies Coded Allergies: Cecusci-Riw-Kqb Reductase Inhibitor (Verified Allergy, Severe, 01/09/17) unable to walk hydrocodone (Verified Allergy, Severe, Shortness of Breath, 01/09/17) atorvastatin (Verified Allergy, Intermediate, muscle weakness, "can't walk ", 01/09/17) fluticasone (Verified Allergy, Intermediate, Hives, 01/09/17) gemfibrozil (Verified Allergy, Intermediate, 01/09/17) pt cannot remember reaction but states not being able to walk was r/t only to statins. simvastatin (Verified Allergy, Intermediate, muscle weakness "can't walk" , 01/09/17) Uncoded Allergies: crestor (Allergy, Intermediate, muscle weakness, can't walk, 10/31/07) red yeast rice (Allergy, Unknown, 10/31/07) Home Medications From previous in patient facility: Amiodarone 200mg daily Glipizide 5mg daily Hydrocodone 5-325mg PO PRN INsulin Lispro sliding scale AC/HS Lopressor 100mg PO daily Torsemide 20mg PO BID Aldactone 12.5mg PO daily Magnesium Oxide 400mg PO BID Nitroglycerine SL PRN for chest pain Benadryl PRN for itching. PMH Aortic stenosis status post prosthetic aVR Coronary artery disease status post four-vessel CABG Reduced ejection fraction heart failure from ischemic cardiomyopathy Third-degree AV block status post [employer] dual-chamber pacer Atrial fibrillation on long-term anticoagulation therapy Degenerative joint disease of bilateral knees status post right total knee replacement Type II diabetes Hyperlipidemia Hypertension Bilateral lower extremity venous stasis changes Left lower extremity cellulitis secondary to fluid overload Surgical History Aortic valve replacement, bioprosthetic Four-vessel CABG Dual-chamber pacer placement Unspecified eye surgery Right knee replacement Family History Father of myocardial infarction at age of 62, mother at the age of 45 secondary to suicide Social History Hx Alcohol Use: No Hx Substance Use: No Hx Tobacco Use: No Smoking Status: Never Smoker Exam Vital Signs Vital Sign - Last Date Time Temp Pulse Resp B/P Pulse Ox O2 Delivery O2 Flow Rate FiO2 01/20/17 16:02 105 01/20/17 15:56 35.4 26 105/71 95 Room Air General: Alert, Oriented X3, Cooperative, Mild Distress Neck: Supple Chest & Lungs: Clear to auscultation & percussion, No adventitious breath sounds, Other (No crackles or wheezes noted in lung bases. ) Cardiovascular: Other (irrgular irrgular rate, with regular rhythm ) Abdomen: Non-tender, Non-distended ((+)superficial fungal infection in abdominal pannus. ), Other Extremities: Other (severe B/L lower extremity edema with 3= pitting edema extending up thighs into scrotum which is also edematous and distended. ) Neurological: Grossly Neurologically Intact Assessment & Plan Mr. 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 - Transition form oral Toresimide to IV Lasix at this time. - Continue close monitoring of In and out in addition to renal function - Pt will be monitored on continuous telemetry monitoring - Continue addition home medications for heart failure, heart healthy/.low sodium diet and fluid restriction continued. #Acute on chronic renal failure: - Appears prenal in nature - Anticipate due to under perfusion related to heart failure - Continue to monitor, limit diuretic use as possible - Consider Nephrology consult if condition proves progressive though anticipate this is an extra-renal cause. #Bilateral lower extremity/Scrotal edema - Treated as noted above - Will consult wound care for skin ulceration/skin break down. #Atrial fibrillation - Rate controlled with metoprolol - Continue Warfarin per pharmacy #CIARRA: - Consult respiratory therapy to aid in installation of CPAP for sleep #Hyperlipidemia: - Pt intolerant of statin medication #Non-insulin dependant DM - Pt placed on SSI at this time - Holding oral medications while hospitalized Pain Evaluation: Adequate Pain Control GI Prophylaxis: Not indicated VTE Prophylaxis: Sub-Q Heparin (Unfractionated) Resuscitation Status: CPR: Attempt Resuscitation Time spent 55 minutes Trace Rodriguez DO January 20, 2017 17:22 #CIARRA: - Consult respiratory therapy to aid in installation of CPAP for sleep #Hyperlipidemia: - Pt intolerant of statin medication #Non-insulin dependant DM - Pt placed on SSI at this time - Holding oral medications while hospitalized Pain Evaluation: Adequate Pain Control GI Prophylaxis: Not indicated VTE Prophylaxis: Sub-Q Heparin (Unfractionated) Resuscitation Status: CPR: Attempt Resuscitation Trace Rodriguez DO January 20, 2017 17:22
[2017-01-20] MEDS ORDERED: ROSU5TAB PO (17:23)
[2017-01-20] MEDS ORDERED: WARF2.5T82 PO (17:23)
[2017-01-20] MEDS ORDERED: WARF5TAB7 PO (17:23)
[2017-01-20] MEDS ORDERED: Glucose 40% Oral Gel 15 Gm Tube PO PRN (17:25)
[2017-01-20] MEDS: Insulin LISPRO 300 Unit/3 mL Inj SUBQ SCH ×2 (17:30→20:17)
[2017-01-20 17:52] VITALS: BP 102/71; PULSE 10; RESP 24; O2SAT 97
[2017-01-20] MEDS ORDERED: TORS20TA3 PO (17:59)
[2017-01-20] MEDS ORDERED: METO100T3 PO (18:02)
[2017-01-20] MEDS ORDERED: NYST1POW23 MC (18:07)
[2017-01-20] MEDS ORDERED: hydrOXYzine Pamoate 25 mg Capsule PO PRN (18:55)
[2017-01-20 20:00] VITALS: PULSE 119
[2017-01-20 20:14] LABS: INR 2.4 ratio
[2017-01-20 20:17] VITALS: BP 113/75; PULSE 131; RESP 20; O2SAT 98
[2017-01-20] MEDS ORDERED: Furosemide 10 mg/mL 4 mL Inj IVPUSH ONE (20:35)
--- NOTE | 2017-01-20 22:14 | CONS ---
[address] [address] CONSULTATION REPORT PATIENT: NEIDA WAGNER : 1940 MR#: [id number] ADMIT: 01/20/2017 JOB ID: [id number] DATE OF SERVICE: 01/20/2017 CHIEF COMPLAINT: Lower extremity edema. HISTORY OF PRESENT ILLNESS: The patient is a 76-year-old man transferred from [facility] to [facility] for worsening lower extremity edema. He has multiple cardiovascular conditions including coronary artery disease, status post CABG, history of aortic valve replacement, paroxysmal AFib that evolved to chronic AFib and history of transient complete heart block status post dual-chamber permanent pacemaker. His says that 2015 was a good year for them. Then 2016 has not been a good year for him. This is his 5th hospitalization. He was hospitalized in October 2016 for right total knee arthroplasty at [facility]. Then, he was hospitalized November 2016 for lower extremity edema at [facility]. Then, he was at [facility], January 09, 2017, for a fall that was a mechanical ground level fall when climbing up stairs. At that time his EF was about 45%. His fall was a combination of mechanical ground level fall, balance issues and orthostatic hypotension, spironolactone was discontinued. Metoprolol tartrate dose was reduced and he was sent home. Then unfortunately he was hospitalized for the 4th time this year, January 16 through January 20, 2017, at [facility] for severe lower extremity edema. Dr. Ortiz was closely monitoring the patient. Attempted to diurese him and unfortunately patient did not get better. In fact, he developed progressive renal failure. His creatinine was 1.4 yesterday; is 1.8 this morning. So, he has been transferred to [facility] for basically further management. Patient says right now he is not particularly short of breath but he is bothered by severe lower extremity edema, scrotal edema. He has chronic orthopnea. He has been sleeping in a recliner. He says it is mostly due to low back pain but it sounds like respiratory component is playing a role. PAST MEDICAL HISTORY: 1. Coronary artery disease, status post CABG in 2008. His surgical anatomy is ALVES to LAD, radial graft to diagonal with skip graft to ramus intermedius, and vein graft to PDA. 2. Severe aortic stenosis, status post aortic valve replacement with [facility] [employer] stented bioprosthesis. 3. Paroxysmal AFib status post pulmonary vein isolation, September 2008. 4. Transient heart block, status post dual-chamber [place] permanent pacemaker implanted by Dr. Waller October 27, 2012. 5. Paroxysmal AFib that is now thought to be chronic. He had pulmonary vein isolation during his heart surgery in 2008. Then, he had DC cardioversion in April 2014 and normal sinus rhythm was restored. His device check in September 2016, showed that he was basically in AFib 97% of the time. It is quite a coarse AFib. When I look back at his device check it appears that he was basically in normal sinus rhythm continuously until December 2015 and at that point in time, he went into AFib and has been in AFib basically continuously since December 2015. Historically his rate had been controlled and historically he has been V paced about 66% of the time. 6. Left bundle branch block--old. Noted on January 2017 EKG. It is kind of interesting that the rate was very, very fast when he was evaluated in clinic, January 15. 7. Obstructive sleep apnea compliant with CPAP. 8. Stage 3 obesity. 9. Diabetes--on oral hypoglycemics at home. Most recent A1c is 6.3 as of December 2016. 10. Hyperlipidemia--controlled. Most recent lipids, December 26, 2016, showed total cholesterol 102, triglycerides 89, HDL is 33, LDL 51. 11. Pancreatitis. 12. History of leg wound after surgery. 13. Cataract. 14. Anemia. FAMILY HISTORY: Father of heart attack. Mother with suicide. SOCIAL HISTORY: He is a lifetime nonsmoker. He still works in [employer]. ALLERGIES: 1. EXENATIDE. 2. GEMFIBROZIL. 3. ROSUVASTATIN. 4. SIMVASTATIN. 5. ATORVASTATIN. HOME MEDICATIONS: According to our clinic records most recently obtained January 15, 2017, in clinic he was on: 1. Crestor 2.5 mg daily. 2. Lasix 40 mg daily. 3. Spironolactone 12.5 mg daily. 4. Lisinopril 5 mg daily. 5. Metoprolol succinate 100 mg twice a day. 6. Warfarin per [facility]. 7. Metformin 1 g twice a day. REVIEW OF SYSTEMS: Dizziness, swelling, shortness of breath. Fatigue, weight gain of about 20 pounds in the past six months. Otherwise, 10-point review of systems is negative. PHYSICAL EXAMINATION: Vital signs: Temperature 36.1, blood pressure 102/71 up to 113/75, pulse is 130 beats per minute. He is satting 95% to 98% on room air. A 76-year-old man, no apparent distress. Eyes: No scleral icterus. Neck veins show very large V-waves and neck veins are at 17 cm of blood. Heart: Normal S1, S2. There is a 2/6 holosystolic murmur at the left lower sternal border. Lungs are clear. Anteriorly, the abdomen is soft with positive bowel sounds. Extremities show moderate edema and they are wrapped. LABORATORIES: I reviewed the labs in detail from [facility]. His INR today was 2.6. Hematocrit 36%. White count 5, platelet count 131. Troponin I peaked at 0.09. Creatinine was 1.4 yesterday. Today was 1.8. AST 85, ALT 303, alkaline phosphatase 93. Of note, he does not normally have transaminitis. Echocardiogram at [facility], January 17, showed ejection fraction of 15%. He has severe global hypokinesis with basal inferior segment showing best wall motion. He has markedly dilated RV, moderate severe tricuspid regurgitation, severe tricuspid regurgitation, pulmonary systolic pressure estimated 55 mmHg. Compared to prior echocardiogram performed in April 2016, ejection fraction is down from 45% down to 15% and prosthesis in aortic position is functioning normally. Pulmonary artery systolic pressure wiley from 38 mmHg to 53 mmHg. Marked RV dilation is new and progressed from mildly dilated RV to markedly dilated RV. EKG from [facility] showed just AFib with RVR and old left bundle. ASSESSMENT AND PLAN: This is a 76-year-old man with basically atrial fibrillation with rapid ventricular response and his rate more recently has been very difficult to control. His ventricular rate on the available EGMs has been averaging 70-90 beats per minute when it is averaged since June, but my feeling is that overall his rate has been uncontrolled and that is a big problem and the big reason why he has developed worsening cardiomyopathy. My plan is as follows. 1. I recommend stopping all nephrotoxic agents, so we are going to stop lisinopril, stop spironolactone, and we are going to stop all medications that cause liver failure such as Crestor and amiodarone. We are going to stop all agents that cause edema such as amlodipine. 2. Metformin is no longer safe for us to use because of renal insufficiency and we are going to stop all oral hypoglycemics and only use sliding scale insulin in-house. 3. Will focus on diuresis, very simple basic diuresis with Lasix 40 mg IV daily, starting now. Goal out more than in by 1 L per day. 4. Will continue to attempt rate control with Toprol-XL 100 mg twice a day and add digoxin for inotrope support. In the detention. The patient will likely benefit from device upgrade to biventricular ICD given his conduction system abnormality. If encounter challenges in controlling his rate on beta jimmy and digoxin, then patient would benefit from AV junction ablation. 5. Of note, historically since his counters were last cleared in June 2016, he has been 66%V-paced so he does not really have complete heart block all the time. 6. In terms of stroke prevention, his only indication is AFib. He has a stented bioprosthesis and does not meet anticoagulation criteria there. His last INR today was 2.6. I recommend holding warfarin so I have the option to cath him once his INR becomes 1.6 or less. Once INR is less than 2, he would benefit from heparin drip for stroke prevention. 7. Rule out coronary artery disease--Once his kidney function is back to normal, he would benefit from cardiac catheterization to rule out ischemia as a cause of his worsening cardiomyopathy. My feeling is that is probably not the reason for worsening cardiomyopathy but it would be reasonable to look into it in more detail. I really do suspect AFib with RVR as the main cause. Thank you very much for the opportunity to participate in this patient's care.
[2017-01-20 22:36] VITALS: PULSE 100
[2017-01-21] VITALS (8 sets, daily range): BP systolic 101–128; BP diastolic 63–89; PULSE 53–99; RESP 20–24; O2SAT 93–97
[2017-01-21 05:19] LABS: BASOPHILS % (AUTO) 0.1 % (0-3); MONOCYTES % (AUTO) 11.4 % (4-12); Mean Corpuscular Hemoglobin 27.6 pg (27.0-35.0); Mean Corpuscular Volume 88.5 fL (81-100); NEUTROPHILS % (AUTO) 77.7 % (40-74); Platelet Count 202 bil/L (150-400)
[2017-01-21 05:22] LABS: INR 2.23 ratio
[2017-01-21] MEDS: Insulin LISPRO 300 Unit/3 mL Inj SUBQ SCH ×4 (08:00→22:00)
[2017-01-21] MEDS: Furosemide 10 mg/mL 4 mL Inj IVPUSH SCH ×2 (08:53→11:36)
[2017-01-21] MEDS ORDERED: Digoxin 0.25 mg/mL 2 mL Inj IV SCH (15:50)
--- NOTE | 2017-01-21 16:01 | PCM.PNCARD ---
Subjective Date of service January 21, 2017 Chief Complaint Edema Constitutional: Reports: Weakness, Denies: Fever, Sweats ENT: Denies: Ear Discharge, Ear Pain Eyes: Denies: Blurred Vision, Conjunctive Inflammation Cardiovascular: Reports: Edema, Irregular Heart Rate, Rapid Heart Rate, SOB on Exertion, Denies: Chest Pain, Palpitations, SOB while laying flat Respiratory: Reports: SOB with Exertion, Denies: Cough, Cough with bloody sputum, Shortness of Breath, Snoring Gastrointestinal: Denies: Abdominal Pain, Blood in stool (red) Genitourinary: Reports: Decrease Urinary Output, Other (scrotal edema), Denies: Hematuria Musculoskeletal: Reports: Back Pain, Shoulder Pain Skin: Reports: Dry or Flakiness, Lesions Neurological: Denies: Change in LOC, Confusion, Dizziness Endocrine: Reports: Blood Glucose Review Exam Vital Signs Vital Sign - Last Date Time Temp Pulse Resp B/P Pulse Ox O2 Delivery O2 Flow Rate FiO2 01/21/17 14:05 36.7 60 24 101/63 95 Room Air Intake and Output 01/20/17 01/20/17 01/21/17 Cumulative From/Thru 15:00 23:00 07:00 01/20/17 15:58 - 01/21/17 05:50 Intake Total 242 ml 200 ml 442 ml Output Total 200 ml 2625 ml 2825 ml Balance 42 ml -2425 ml -2383 ml Intake Oral 237 ml 200 ml 437 ml IV Total 5 ml 5 ml Output Urine Total 200 ml 2625 ml 2825 ml # Voids 1 1 # Bowel Movements 1 1 General: Pleasant Cooperative Severely obese Skin: Warm & dry to touch Head: Normocephalic Eye: EOMS intact Neck: Nuchal obesity:JVP assess difficult Chest: Clear auscultation w/o rales/wheeze Cardiac: Irregularly irregular rhythm Abdomen: Obese Genitalia: Scrotal edema present Extremities: Foot edema Ankle edema Pretibial edema Calf edema Thigh edema Scrotal edema Neurological: Alert & oriented Psychological: Affect & interaction appropriate Memory grossly intact Lab and Diagnostics Labs CBC Test 01/21/17 04:20 White Blood Count 6.7th/mm3 (3.8-10.1) Red Blood Count 4.34mil/mm3 (4.40-5.80) Hemoglobin 12.0g/dL (13.8-17.2) Hematocrit 38.4% (41.0-50.0) Mean Corpuscular Volume 88.5fL (81-100) Mean Corpuscular Hemoglobin 27.6pg (27.0-35.0) Mean Corpuscular Hemoglobin Concent 31.3% (32.0-37.0) Red Cell Distribution Width 17.5% (12.3-15.4) Platelet Count 202bil/L (150-400) Neutrophils (%) (Auto) 77.7% (40-74) Lymphocytes (%) (Auto) 9.7% (14-46) Monocytes (%) (Auto) 11.4% (4-12) Eosinophils (%) (Auto) 1.0% (0-5) Basophils (%) (Auto) 0.1% (0-3) CMP Test 01/20/17 19:42 01/21/17 04:20 Hold V[place]la Top Tube Received Sodium Level 135mEq/L Potassium Level 3.6mEq/L Chloride Level 96mEq/L Carbon Dioxide Level 22mmol/L Blood Urea Nitrogen 57mg/dL Creatinine 1.35mg/dL Estimat Glomerular Filtration Rate 55mL/min Glucose Level 144mg/dL Calcium Level 9.3mg/dL Result Diagram: 01/21/1741901/21/17419 Assessment & Plan Problems: (1) Tachycardia induced cardiomyopathy Plan: Patient most likely has 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 Main object here is rate control. I agree with prior recs that we should switch his beta blockers from tartrate to succinate for more beta jimmy coverage throughout the day. I have also taken the liberty of giving him IV digoxin x2 0.25 mg quicker therapeutic digoxin level. He is already making good urine but he is significantly fluid overloaded. He predominantly is presenting with right sided heart failure which is consistent with his last echo at [facility] showing RV systolic dysfunction which in itself is making it difficult to aggressively diurese without causing intravascular dehydration. Once we have obtained good rate control then I suspect that his biventricular HF will improve and everything else should sort of fall in place. His edema will improved, most importantly his scrotal edema which is one of his primary complaints. He does have some component of ischemic CMP as well with baseline echocardiograms showing an EF around 40%. If after good rate control and he still has persistent HFrEF <35% then he would be considered for Bi- ventricular pacemaker/AICD. If he continues to make good urine over the next 24 hours then I would recommend restarting his warfarin since his heart cath can be reconsidered as outpatient if his EF remains severely reduced. For now continue with IV Lasix 40 mg once daily. Status: Acute ICD Code: R00.0 (2) Atrial fibrillation with RVR Status: Acute ICD Code: I48.91 (3) CAD (coronary artery disease) Qualifiers: Coronary Disease-Associated Artery/Lesion type: wiyot artery [place] vs. transplanted heart: wiyot heart Associated angina: without angina Qualified Code: I25.10 - Atherosclerotic heart disease of wiyot coronary artery without angina pectoris Status: Chronic ICD Code: I25.10 Pain Evaluation: Adequate Pain Control GI Prophylaxis: Not indicated VTE Prophylaxis: Sub-Q Heparin (Unfractionated) Resuscitation Status: CPR: Attempt Resuscitation Time spent 30 minutes Nino Yost MD January 21, 2017 16:01
--- NOTE | 2017-01-21 19:40 | PCM.PNMED ---
Subjective Date of Service January 21, 2017 Subjective Patient was seen and examined today. Patient states that his shortness of breath has improved and his lower extremity edema is also improved. Patient denies any chest pain shortness of breath, nausea, vomiting, diarrhea. Exam Vital Signs Vital Sign - Last Date Time Temp Pulse Resp B/P Pulse Ox O2 Delivery O2 Flow Rate FiO2 01/21/17 18:41 92 01/21/17 18:19 36.8 22 116/85 97 Room Air Intake and Output 01/20/17 01/20/17 01/21/17 Cumulative From/Thru 15:00 23:00 07:00 01/20/17 15:58 - 01/21/17 05:50 Intake Total 242 ml 200 ml 442 ml Output Total 200 ml 2625 ml 2825 ml Balance 42 ml -2425 ml -2383 ml Intake Oral 237 ml 200 ml 437 ml IV Total 5 ml 5 ml Output Urine Total 200 ml 2625 ml 2825 ml # Voids 1 1 # Bowel Movements 1 1 Exam Physical Exam: GEN: Patient was awake, alert, responding appropriately to questions HEENT: Pupils equal round and reactive to light, extraocular eye muscles intact , Neck soft supple, trachea midline, nomocephalic/atraumatic CV: +S1/S2, irregular Respiratory: CTAB, no wheezes, rales, rhonchi GI: +bowel sounds x4, soft, compressible, nontender to palpation : Significant scrotal edema EXT: no clubbing, cyanosis, +3 pitting edema up to the thighs Neuro: Cranial nerves II-XII grossly intact Psych: mood and affect were appropriate IVs and Medications Medications Reviewed: Medications were reviewed in detail Lab and Diagnostics Result Diagram: 01/21/1741901/21/17419 Assessment & Plan Mr. 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 - Continue IV Lasix at this time. - Continue close monitoring of In and out in addition to renal function - Pt will be monitored on continuous telemetry monitoring - Continue addition home medications for heart failure, heart healthy/.low sodium diet and fluid restriction continued. -Cardiology consulted and following Acute on chronic renal failure: - Appears prenal in nature - Anticipate due to under perfusion related to heart failure - Continue to monitor, limit diuretic use as possible - Consider Nephrology consult if condition proves progressive though anticipate this is an extra-renal cause. Bilateral lower extremity/Scrotal edema - Treated as noted above - Will consult wound care for skin ulceration/skin break down. Atrial fibrillation - Rate controlled with metoprolol - Continue Warfarin per pharmacy CIARRA: - Consult respiratory therapy to aid in installation of CPAP for sleep Hyperlipidemia: - Pt intolerant of statin medication Non-insulin dependant DM - Pt placed on SSI at this time - Holding oral medications while hospitalized GI Prophylaxis: Not indicated VTE Prophylaxis: Sub-Q Heparin (Unfractionated) Resuscitation Status: CPR: Attempt Resuscitation Grecia Graves DO January 21, 2017 19:40
[2017-01-21] MEDS: Nystatin 100,000 Unit/Gm 15 Gm Powder TOPICAL SCH ×2 (20:21→20:26)
[2017-01-21] MEDS: MeTOProlol XL 50 mg ER24 Tablet PO SCH (20:25)
[2017-01-22] VITALS (7 sets, daily range): BP systolic 103–146; BP diastolic 69–79; PULSE 49–100; RESP 18–23; O2SAT 95–98
[2017-01-22] MEDS ORDERED: Digoxin 0.25 mg/mL 2 mL Inj IV ONE (00:17)
[2017-01-22 06:26] LABS: Mean Corpuscular Hemoglobin 27.1 pg (27.0-35.0); Mean Corpuscular Volume 89.3 fL (81-100)
[2017-01-22 06:36] LABS: INR 2.01 ratio
[2017-01-22] MEDS ORDERED: KCl 40 mEq/D5W 500 mL 40 MEQ in IV Premix 1 EACH IV ONE (07:30)
[2017-01-22] MEDS: Insulin LISPRO 300 Unit/3 mL Inj SUBQ SCH ×4 (08:00→21:57)
[2017-01-22] MEDS: Nystatin 100,000 Unit/Gm 15 Gm Powder TOPICAL SCH ×2 (08:30→20:51)
[2017-01-22] MEDS: Furosemide 10 mg/mL 4 mL Inj IVPUSH SCH ×2 (08:30→17:09)
[2017-01-22] MEDS ORDERED: 0.9% Sodium Chloride 100 ML ONE (08:57)
[2017-01-22] MEDS: Potassium Chloride 20 mEq SR Tablet PO SCH (09:24)
[2017-01-22] MEDS: MeTOProlol XL 50 mg ER24 Tablet PO SCH ×2 (09:25→20:49)
--- NOTE | 2017-01-22 20:27 | PCM.PNMED ---
Subjective Date of Service January 22, 2017 Subjective Patient was seen and examined at bedside today. Patient denies any chest pain, shortness of breath, nausea, vomiting, diarrhea. Patient states that he feels that his lower extremity edema is improving and his scrotal edema is improving. Overnight events: None Exam Vital Signs Vital Sign - Last Date Time Temp Pulse Resp B/P Pulse Ox O2 Delivery O2 Flow Rate FiO2 01/22/17 20:00 36.9 61 22 122/79 98 Room Air Intake and Output 01/21/17 01/21/17 01/22/17 Cumulative From/Thru 15:00 23:00 07:00 01/20/17 15:58 - 01/22/17 05:16 Intake Total 906 ml 300 ml 1648 ml Output Total 2375 ml 1150 ml 6350 ml Balance -1469 ml -850 ml -4702 ml Intake Oral 906 ml 300 ml 1643 ml IV Total 5 ml Output Urine Total 2375 ml 1150 ml 6350 ml # Voids 1 1 3 # Bowel Movements 1 2 Exam Physical Exam: GEN: Patient was awake, alert, responding appropriately to questions HEENT: Pupils equal round and reactive to light, extraocular eye muscles intact , Neck soft supple, trachea midline, nomocephalic/atraumatic CV: +S1/S2, regular rate and rhythm, no murmurs auscultated Respiratory: CTAB, no wheezes, rales, rhonchi GI: +bowel sounds x4, soft, compressible, nontender to palpation : Scrotal edema improved from yesterday EXT: no clubbing, cyanosis, +3 pitting edema up to the thighs improved Neuro: Cranial nerves II-XII grossly intact Psych: mood and affect were appropriate IVs and Medications Medications Reviewed: Medications were reviewed in detail Lab and Diagnostics Result Diagram: 01/22/1755 01/22/17 0555 Assessment & Plan Mr. 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 in [facility] for worsening heart failure, progressive lower extremity edema in conjunction with acute on chornic renal failure which has been limiting attempts at diuresis: Congestive heart failure with reduced ejection fraction: - Confirmed by Echo conducted at transferring facility with EF of 15%. - Increase IV Lasix to twice a day - Continue close monitoring of In and out in addition to renal function - Pt will be monitored on continuous telemetry monitoring - Continue addition home medications for heart failure, heart healthy/.low sodium diet and fluid restriction continued. -Cardiology consulted and following Acute on chronic renal failure: - Appears prenal in nature - Anticipate due to under perfusion related to heart failure - Continue to monitor, limit diuretic use as possible - Consider Nephrology consult if condition proves progressive though anticipate this is an extra-renal cause. Bilateral lower extremity/Scrotal edema - Treated as noted above - Will consult wound care for skin ulceration/skin break down. Atrial fibrillation - Rate controlled with metoprolol - Continue Warfarin per pharmacy CIARRA: - Consult respiratory therapy to aid in installation of CPAP for sleep Hyperlipidemia: - Pt intolerant of statin medication Non-insulin dependant DM - Pt placed on SSI at this time - Holding oral medications while hospitalized Disposition: Patient is currently diuresing well the patient put out 2 L of fluid yesterday and overnight he only put out 1 L. We will increase the patient 's Lasix to twice a day for improved diuresis. GI Prophylaxis: Not indicated VTE Prophylaxis: Sub-Q Heparin (Unfractionated) Resuscitation Status: CPR: Attempt Resuscitation Grecia Graves DO January 22, 2017 20:27
[2017-01-23] VITALS (8 sets, daily range): BP systolic 102–139; BP diastolic 61–97; PULSE 51–90; RESP 18–21; O2SAT 93–97
[2017-01-23 06:20] LABS: Mean Corpuscular Hemoglobin 27.4 pg (27.0-35.0); Mean Corpuscular Volume 90.4 fL (81-100)
[2017-01-23 06:42] LABS: INR 1.7 ratio
[2017-01-23] MEDS ORDERED: KCl 40 mEq/D5W 500 mL 40 MEQ in IV Premix 1 EACH IV ONE (07:20)
[2017-01-23] MEDS ORDERED: Potassium Chloride 20 mEq SR Tablet PO ONE (07:20)
[2017-01-23] MEDS: Insulin LISPRO 300 Unit/3 mL Inj SUBQ SCH ×4 (08:00→22:38)
[2017-01-23] MEDS: Potassium Chloride 20 mEq SR Tablet PO SCH (08:00)
[2017-01-23] MEDS: MeTOProlol XL 50 mg ER24 Tablet PO SCH ×2 (09:01→22:30)
[2017-01-23] MEDS: Polyethylene Glycol (PEG) 17 Gm Powder PO SCH (09:08)
[2017-01-23] MEDS: Furosemide 10 mg/mL 4 mL Inj IVPUSH SCH ×2 (09:09→16:46)
[2017-01-23] MEDS: Nystatin 100,000 Unit/Gm 15 Gm Powder TOPICAL SCH ×2 (09:24→20:19)
--- NOTE | 2017-01-23 10:57 | PCM.PHAPRO ---
Progress Warfarin Management by Pharmacy: -Indication: afib -hx of bioprosthetic aortic valve -Inr Goal: 2-3 -Home Dose: pt states 2.5mg 6 days/wk and 5mg 1 day/wk, dependent on protime clinic -Drug Interactions: none noted (had been on Amiodarone but this has been stopped ) -Disease Interactions: CHF/cardiomyopathy -Concurrent Anticoagulation: none -H/H 11.4/37.6 Platelets: 168 -Coagulation Trends: Inr is 1.7 today -Plan: pt has not received warfarin for a few days and is being resumed this evening. Will proceed with a 2.5mg dose and follow. Inr's have been ordered for several days Yakelin Loya [facility] January 23, 2017 10:57
--- NOTE | 2017-01-23 19:13 | PCM.PNMED ---
Subjective Date of Service January 23, 2017 Subjective Patient was seen and examined at bedside today. Patient denies any chest pain, shortness of breath, nausea, vomiting, diarrhea. Overnight events: None Exam Vital Signs Vital Sign - Last Date Time Temp Pulse Resp B/P Pulse Ox O2 Delivery O2 Flow Rate FiO2 01/23/17 16:26 36.6 72 19 118/72 93 Room Air Intake and Output 01/22/17 01/22/17 01/23/17 Cumulative From/Thru 15:00 23:00 07:00 01/20/17 15:58 - 01/23/17 06:02 Intake Total 1508 ml 300 ml 3456 ml Output Total 3275 ml 1250 ml 73222 ml Balance -1767 ml -950 ml -7419 ml Intake Oral 1508 ml 300 ml 3451 ml IV Total 5 ml Output Urine Total 3275 ml 1250 ml 04235 ml # Voids 11 14 # Bowel Movements 1 3 Exam Physical Exam: GEN: Patient was awake, alert, responding appropriately to questions HEENT: Pupils equal round and reactive to light, extraocular eye muscles intact , Neck soft supple, trachea midline, nomocephalic/atraumatic CV: Irregular irregular Respiratory: CTAB, no wheezes, rales, rhonchi GI: +bowel sounds x4, soft, compressible, nontender to palpation EXT: no clubbing, cyanosis, +3 pitting edema up to the knees (improved no longer up to the thighs) Neuro: Cranial nerves II-XII grossly intact Psych: mood and affect were appropriate IVs and Medications Medications Reviewed: Medications were reviewed in detail Lab and Diagnostics Result Diagram: 01/23/17 0550 01/23/17 0550 Assessment & Plan Mr. 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 - Increase IV Lasix to twice a day - Continue close monitoring of In and out in addition to renal function - Pt will be monitored on continuous telemetry monitoring - Continue addition home medications for heart failure, heart healthy/low sodium diet and fluid restriction continued. -Cardiology consulted and following Acute on chronic renal failure: - Appears prenal in nature - Anticipate due to under perfusion related to heart failure - Continue to monitor, limit diuretic use as possible - Consider Nephrology consult if condition proves progressive though anticipate this is an extra-renal cause. Bilateral lower extremity/Scrotal edema - Treated as noted above - Will consult wound care for skin ulceration/skin break down. Atrial fibrillation - Rate controlled with metoprolol - Continue Warfarin per pharmacy CIARRA: - Consult respiratory therapy to aid in installation of CPAP for sleep Hyperlipidemia: - Pt intolerant of statin medication Non-insulin dependant DM - Pt placed on SSI at this time - Holding oral medications while hospitalized Disposition: Patient is currently diuresing well and has put out over 8 L of fluid during this stay. We will continue to diurese the patient and once he is able to walk comfortably after his scrotal edema has decreased he should be able to be discharged home. GI Prophylaxis: Not indicated VTE Prophylaxis: Sub-Q Heparin (Unfractionated) Resuscitation Status: CPR: Attempt Resuscitation Grecia Graves DO January 23, 2017 19:13
[2017-01-24 00:23] VITALS: BP 124/75; PULSE 93; RESP 18; O2SAT 95
[2017-01-24 04:13] VITALS: BP 118/75; PULSE 57; RESP 18; O2SAT 96
[2017-01-24 05:29] VITALS: PULSE 100
[2017-01-24 06:01] LABS: Mean Corpuscular Hemoglobin 27.1 pg (27.0-35.0); Mean Corpuscular Volume 91.3 fL (81-100)
[2017-01-24 06:27] LABS: INR 1.45 ratio
[2017-01-24 08:00] VITALS: PULSE 102
[2017-01-24] MEDS: Insulin LISPRO 300 Unit/3 mL Inj SUBQ SCH ×2 (08:00→12:00)
[2017-01-24] MEDS: Potassium Chloride 20 mEq SR Tablet PO SCH (08:45)
[2017-01-24] MEDS: MeTOProlol XL 50 mg ER24 Tablet PO SCH (08:49)
[2017-01-24] MEDS: Polyethylene Glycol (PEG) 17 Gm Powder PO SCH (08:50)
[2017-01-24] MEDS: Nystatin 100,000 Unit/Gm 15 Gm Powder TOPICAL SCH (08:53)
[2017-01-24 09:17] VITALS: BP 102/61; PULSE 62; RESP 20; O2SAT 95
[2017-01-24] MEDS ORDERED: LAN125 PO (11:37)
[2017-01-24] MEDS ORDERED: WARF2.5T82 PO (11:37)
[2017-01-24] MEDS ORDERED: POTA20TA16 PO (11:37)
[2017-01-24] MEDS ORDERED: FURO40TA4 PO (11:37)
--- NOTE | 2017-01-24 11:43 | PCM.DIMED ---
Discharge Instructions Date of Service January 24, 2017 Dates of Hospitalization January 20, 2017 at 15:59 Discharge Diagnosis Discharge Diagnosis Acute on chronic CHF with reduced ejection fraction Acute on chronic renal failure Lymphedema Atrial fibrillation Obstructive sleep apnea Hyperlipidemia Diabetes type II Diet Low fat, Low Sodium, Heart Healthy, Other (please limit your fluid intake to 2 L per day and no more please monitor this closely) Activity No restrictions (gradually return to normal daily activities), Home Health Phyical Therapy Call your provider Shortness of breath, Chest pain, Weakness (unilateral) Patient Instructions Follow-up Provider: Calin Waller MD Follow-up with PCP in: 2 weeks (if an appointment has not been made please call to schedule an appointment) Provider: Temitope Buenrostro PA-C Follow-up in: 1 week (if an appointment has not been made please call to schedule an appointment) Additional Information Please follow-up with your Coumadin clinic within the next 2 days 01/26/17. Your Coumadin dosage has been changed and will need close follow-up. Grecia Graves DO January 24, 2017 11:43
--- NOTE | 2017-01-24 11:44 | PCM.DC.MED ---
Discharge Summary Date of Service January 24, 2017 Dates of Hospitalization Date of Hospital Admission January 20, 2017 at 15:59 Date of Discharge: January 24, 2017 Providers: Admitting Physician: Milton Jefferson Primary Care Physician: Temitope Buenrostro PA-C Attending Physician: Milton Jefferson Diagnosis at Time of Discharge Diagnosis at Time of Discharge Acute on chronic CHF with reduced ejection fraction Acute on chronic renal failure Lymphedema Atrial fibrillation Obstructive sleep apnea Hyperlipidemia Diabetes type II Brief History Mr. 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 Pt initially present to on 01/16/2017 with worsening edema and initially managed with a titration of oral loop diuertic (toresmide). He was slow to respond however, edema actually worsened, and his chronic kidney failure as well was noted to become exacerbated. Repeat echo demonstrated a profound heart failure of unclear chronicity (either stable or worsening) which is none the less likely accounting for worsening edema and likely underperfusion of kidney as well leading to the renal condition. Pt. arrived to hospital in stable but guarding condition. He notes the scrotal swelling is most concerning issue, but legs are uncomfortable as well. He denies chest pain, also denies shortness of breath. He has noted some flu like symptoms, nasal congestions in the last couple of days. NO fever/chills. NO other complaints. Hospital Course Mr. 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 The patient was diuresed and had over 10 L of fluid during his stay. Cardiology came by to see the patient and changed some of his medications and place the patient on digoxin. The patient seemed to do well with this change. The patient is being discharged home in stable condition and has been instructed to follow-up with Coumadin clinic in the next 2 days. The patient has also been instructed to continue a 2 L fluid injection daily. The patient' s scrotal edema has improved significantly and his lower extremity edema has improved however he still needs diuresis. At this time the patient does seem stable off to continue diuresis at home. The patient has been inserted to follow up with his primary care physician and his back stayer. For full hospital course see below: Congestive heart failure with reduced ejection fraction: - Confirmed by Echo conducted at transferring facility with EF of 15%. - Increase IV Lasix to twice a day - Continue close monitoring of In and out in addition to renal function - Pt will be monitored on continuous telemetry monitoring - Continue addition home medications for heart failure, heart healthy/low sodium diet and fluid restriction continued. -Cardiology consulted and following Acute on chronic renal failure: - Appears prenal in nature - Anticipate due to under perfusion related to heart failure - Continue to monitor, limit diuretic use as possible - Consider Nephrology consult if condition proves progressive though anticipate this is an extra-renal cause. Bilateral lower extremity/Scrotal edema - Treated as noted above - Will consult wound care for skin ulceration/skin break down. Atrial fibrillation - Rate controlled with metoprolol - Continue Warfarin per pharmacy CIARRA: - Consult respiratory therapy to aid in installation of CPAP for sleep Hyperlipidemia: - Pt intolerant of statin medication Non-insulin dependant DM - Pt placed on SSI at this time - Holding oral medications while hospitalized Exam Vital Signs (Last) Date Time Temp Pulse Resp B/P Pulse Ox O2 Delivery O2 Flow Rate FiO2 01/24/17 09:17 36.1 62 20 102/61 95 Room Air Exam Physical Exam: GEN: Patient was awake, alert, responding appropriately to questions HEENT: Pupils equal round and reactive to light, extraocular eye muscles intact , Neck soft supple, trachea midline, nomocephalic/atraumatic CV: Irregular Respiratory: CTAB, no wheezes, rales, rhonchi GI: +bowel sounds x4, soft, compressible, nontender to palpation : Positive scrotal edema however significantly improved from yesterday EXT: no clubbing, cyanosis, edema, +3 pitting edema to the knees Neuro: Cranial nerves II-XII grossly intact Psych: mood and affect were appropriate Test 01/20/17 19:42 01/20/17 21:43 01/21/17 04:20 01/22/17 05:55 Hold [place] Top Tube Received (Received) Hold Urine Received (Received) Neutrophils (%) (Auto) 77.7% (40-74) Lymphocytes (%) (Auto) 9.7% (14-46) Monocytes (%) (Auto) 11.4% (4-12) Eosinophils (%) (Auto) 1.0% (0-5) Basophils (%) (Auto) 0.1% (0-3) Total Bilirubin 1.4mg/dL (0.0-1.2) Aspartate Amino Transf (AST/SGOT) 16U/L (0-50) Alanine Aminotransferase (ALT/SGPT) 60U/L (0-44) Alkaline Phosphatase 94U/L (25-160) Total Protein 6.2g/dL (6.4-8.4) Albumin 3.2g/dL (3.4-5.0) Test 01/24/17 05:27 White Blood Count 8.4th/mm3 (3.8-10.1) Red Blood Count 4.36mil/mm3 (4.40-5.80) Hemoglobin 11.8g/dL (13.8-17.2) Hematocrit 39.8% (41.0-50.0) Mean Corpuscular Volume 91.3fL (81-100) Mean Corpuscular Hemoglobin 27.1pg (27.0-35.0) Mean Corpuscular Hemoglobin Concent 29.6% (32.0-37.0) Red Cell Distribution Width 17.6% (12.3-15.4) Platelet Count 186bil/L (150-400) Prothrombin Time 15.6sec (8.1-12.5) Prothromb Time International Ratio 1.45ratio Sodium Level 144mEq/L (134-144) Potassium Level 3.7mEq/L (3.5-5.2) Chloride Level 100mEq/L (97-108) Carbon Dioxide Level 32mmol/L (18-29) Blood Urea Nitrogen 23mg/dL (8-27) Creatinine 0.82mg/dL (0.76-1.27) Estimat Glomerular Filtration Rate 98mL/min (>59) Glucose Level 181mg/dL (60-99) Calcium Level 9.2mg/dL (8.5-10.1) Discharge Medications Discharge Medications Digoxin (Lanoxin) 0.125 Mg Tablet 0.125 MG PO DAILY@12 Prescribed by: CATALINO FISH DO Furosemide (Furosemide) 40 Mg Tablet 60 MG PO 0830,1630 Prescribed by: CATALINO FISH DO Glipizide (Glipizide) 5 Mg Tablet 5 MG PO DAILY (Reported) Insulin Human Lispro (HumaLOG U100 Insulin Vial) 100 Unit/Ml Unit 1 SUBQ ACHS ( Reported) Check blood sugars before meals and at bedtime. Use correction factor only before meals. Blood Sugar Lispro Correction: <151, 0 units; 151-175, 1 unit; 176-200, 2 units; 201-225, 3 units; 226-250, 4 units; 251-275, 5 units; 276-300 , 6 units; 301-325, 7 units; 326-350, 8 units; 351-375, 9 units; 376-400, 10 units; >400, 12 units. Magnesium Oxide (Magnesium Oxide) 400 Mg Tablet 400 MG PO DAILY (Reported) Metoprolol Tartrate (Metoprolol Tartrate) 100 Mg Tablet 100 MG PO BID (Reported ) Potassium Chloride (Potassium Chloride) 20 Meq Tab.er.prt 20 MEQ PO DAILYWM Prescribed by: CATALINO FISH DO Warfarin Sodium (Warfarin Sodium) 2.5 Mg Tablet 2.5 MG PO DAILY Prescribed by: CATALINO FISH DO Miscellaneous Medications Nystatin (Nystatin) 1 Each Powder.ea. 1 EACH MC (Reported) Followup Plan Discharge Diet: Low fat, Low Sodium, Heart Healthy, Other (please limit your fluid intake to 2 L per day and no more please monitor this closely) Discharge Activity: No restrictions (gradually return to normal daily activities), Home Health Phyical Therapy Follow-up Provider: Calin Waller MD Follow-up with PCP in: 2 weeks (if an appointment has not been made please call to schedule an appointment) Provider: Temitope Buenrostro PA-C Follow-up in: 1 week (if an appointment has not been made please call to schedule an appointment) Time spent Greater than 35 minutes copies to: Calin Waller MD; Temitope Buenrostro PA-C, Precious L DO January 24, 2017 11:44
[2017-01-24 12:08] VITALS: PULSE 84
== END 2017-01-24 12:33 | disposition home or self-care (01) | DRG 292 ==
LOC: MPC 15:59
PROVIDERS: ADMIT Internal Medicine; ATTEND Family Medicine
DX: I50.23 Acute on chronic systolic (congestive) heart failure (principal); N17.9 Acute kidney failure, unspecified; I25.10 Atherosclerotic heart disease of native coronary artery without angina pectoris; E78.5 Hyperlipidemia, unspecified; M54.12 Radiculopathy, cervical region; I25.5 Ischemic cardiomyopathy; N50.89 Other specified disorders of the male genital organs; Z96.651 Presence of right artificial knee joint; I10 Essential (primary) hypertension; G47.33 Obstructive sleep apnea (adult) (pediatric); I48.0 Paroxysmal atrial fibrillation; E11.9 Type 2 diabetes mellitus without complications; Z79.4 Long term (current) use of insulin; Z95.2 Presence of prosthetic heart valve; Z95.0 Presence of cardiac pacemaker; Z95.1 Presence of aortocoronary bypass graft

== ENCOUNTER 2017-02-26 14:56 | Inpatient (IN) | payer MEDICARE ==
[~2017-02-26] VITALS: Ht 188 cm; Wt 133.0 kg
[2017-02-26] VITALS (8 sets, daily range): BP systolic 92–117; BP diastolic 65–96; PULSE 92–146; RESP 18–24; O2SAT 96–97
[~2017-02-26 14:56] MED LIST changes: -FUR20 PO; +FURO40TA4 PO; +INSLIS SUBQ; +LAN125 PO; -LISI10TA PO; -METF-496 PO; +METO100T3 PO; -METO25TA6 PO; -MULT-666 PO; +NYST1POW23 MC; +POTA20TA16 PO; -ROSU5TAB PO; -VITA100T4 PO; -WARF5TAB7 PO
[2017-02-26 15:04] LABS: BASOPHILS % (AUTO) 0.2 % (0-3); EOSINOPHILS % (AUTO) 0.8 % (0-5); MONOCYTES % (AUTO) 7.3 % (4-12); Mean Corpuscular Hemoglobin 27.8 pg (27.0-35.0); Mean Corpuscular Volume 89.4 fL (81-100); Platelet Count 168 bil/L (150-400)
--- NOTE | 2017-02-26 15:21 | ED.REPORT ---
HPI-General Illness Date of Service Feb 26, 2017 ED Provider: Delroy Rendon MD Patient is a 77 year old male with a hx of a CABG, CAD, CHF, Afib, LBBB, HTN, DM , and aortic stenosis on Warfarin who presents to the ED via EMS after being referred by his PCP for an abnormal EKG. He complains of racing heart and increasing SOB but reports he is asymptomatic currently all at rest. He describes his symptoms as intermittent SOB that is exacerbated with exertion and lying flat. He reports that his symptoms are not new but significantly worsened today. He denies chest pain, leg swelling, or any other symptoms. He reports that he has not taken his metoprolol (100mg 2x a day) since the day before yesterday since his heart monitor has been reading a rate of less than 50. He reports this morning his heart rate was 43. His switch operator is Dr. Fortune. He stopped taking his digoxin 2 weeks ago. Nursing Notes Stated Complaint: WEAKNESS Chief Complaint: Dysrhythmia/Cardiac Nursing Notes Reviewed: Yes Allergies: Coded Allergies: Ymmhlfy-Ezo-Wfp Reductase Inhibitor (Verified Allergy, Severe, 02/26/17) unable to walk hydrocodone (Verified Allergy, Severe, Shortness of Breath, 02/26/17) atorvastatin (Verified Allergy, Intermediate, muscle weakness, "can't walk ", 02/26/17) fluticasone (Verified Allergy, Intermediate, Hives, 02/26/17) gemfibrozil (Verified Allergy, Intermediate, 02/26/17) pt cannot remember reaction but states not being able to walk was r/t only to statins. simvastatin (Verified Allergy, Intermediate, muscle weakness "can't walk" , 02/26/17) Uncoded Allergies: crestor (Allergy, Intermediate, muscle weakness, can't walk, 10/31/07) red yeast rice (Allergy, Unknown, 10/31/07) Scheduled Cholecalciferol (Vitamin D3) (Vitamin D3) 1,000 Unit Tab.chew 1,000 UNIT PO DAILY Flaxseed Oil ([place]-3 Flaxseed Oil) 1,000 Mg Capsule 1,000 MG PO BID Furosemide (Furosemide) 40 Mg Tablet 60 MG PO BIDWM Glipizide (Glipizide) 5 Mg Tablet 5 MG PO DAILYWM Lisinopril (Lisinopril) 10 Mg Tablet 5 MG PO DAILY Magnesium Oxide (Magnesium Oxide) 400 Mg Tablet 400 MG PO DAILY Metformin (Glucophage) 1,000 Mg Tablet 1,000 MG PO BIDWM Metoprolol Succinate ER (Metoprolol Succinate ER) 100 Mg Tab.er.24h 100 MG PO BID Multivitamin (Multi Vitamin Daily) 1 Each Tablet 1 EACH PO DAILY Rosuvastatin Calcium (Crestor) 5 Mg Tablet 2.5 MG PO every saturday Spironolactone (Spironolactone) 25 Mg Tablet 12.5 MG PO QAM Warfarin Sodium (Warfarin Sodium) 2.5 Mg Tablet 2.5 MG PO DAILY Scheduled PRN Acetaminophen (Acetaminophen) 325 Mg Capsule 650 MG PO q4 hours PRN PRN For Pain Fluticasone Propionate (Fluticasone Propionate Nasal) 16 Gm [place].susp 2 SPRAYS NASAL DAILY PRN PRN allergies General Time Seen by MD: 15:02 Chief Complaint Other (SOB) Hx Obtained From: Patient, Spouse Arrived By: Ambulance Recent Healthcare: Recent doctor visit Past Medical History Past Medical History Notes: Sees wound care for lower extremities. Past Medical History atrial fibrillation on coumadin LBBB diabetes mellitus with peripheral neuropathy Aortic stenosis coronary artery disease hypertension arthritis hemorrhoids Venous stasis ulceration Venous insufficiency with lymphedema Eczema BPH Hemodialysis Sleep apnea Reports: Cancer (Skin ), Congestive heart failure Past Surgical History aortic valve replacement CABGx4 2008 R knee replacement Hip replacement Reports: Cataract surgery Reports: Pacemaker insertion Smoking History Never Smoker Social History Other Social History: Good social support, , Local resident Ambulatory Status Independent Review of Systems +allergy-like symptoms Full Review of Systems Respiratory: Reports: Shortness of breath Cardiovascular: Denies: Chest pain Musculoskeletal: Denies: Extremity swelling Complete sys rev & neg: except as marked. Physical Exam Vital Signs Vital Signs Date Time Temp Pulse Resp B/P Pulse Ox O2 Delivery O2 Flow Rate FiO2 02/26/17 16:48 92 22 111/87 96 Room Air 02/26/17 16:16 108 22 92/65 97 Room Air 02/26/17 15:47 108 19 101/85 96 Room Air 02/26/17 15:38 139 18 109/93 97 Room Air 02/26/17 15:01 36.5 146 24 117/96 96 Room Air Initial VS: Reviewed Head / Eyes: Atraumatic, Normocephalic Neck: Full range of motion Abdomen / GI: Soft, Non-tender, No distention Skin: Warm, Dry Neurologic: Alert, Oriented, Nonfocal Psychiatric: Mood/affect normal, Behavior normal, Normal thought content General/Constitutional: Awake, Alert, No acute distress, Well developed Respiratory / Chest: Breath sounds NL, Breath sounds = bilat, No respiratory distress Speaking in full sentences Heart Rate / Rhythm: Positive: Irregular rhythm, Tachycardia Palpable radial pulses Lower Extremity / Pelvis / MS: Atraumatic Pitting edema in bila lower extremities that extends to knees with compression wraps. Interpretation & Diagnostics Lab Results Interpretation Result Diagram: 02/26/17 1455 02/26/17 1455 Test 02/26/17 14:55 White Blood Count 6.3th/mm3 (3.8-10.1) Red Blood Count 4.17mil/mm3 (4.40-5.80) Hemoglobin 11.6g/dL (13.8-17.2) Hematocrit 37.3% (41.0-50.0) Mean Corpuscular Volume 89.4fL (81-100) Mean Corpuscular Hemoglobin 27.8pg (27.0-35.0) Mean Corpuscular Hemoglobin Concent 31.1% (32.0-37.0) Red Cell Distribution Width 18.0% (12.3-15.4) Platelet Count 168bil/L (150-400) Neutrophils (%) (Auto) 79.0% (40-74) Lymphocytes (%) (Auto) 12.5% (14-46) Monocytes (%) (Auto) 7.3% (4-12) Eosinophils (%) (Auto) 0.8% (0-5) Basophils (%) (Auto) 0.2% (0-3) Prothrombin Time 31.5sec (8.1-12.5) Prothromb Time International Ratio 2.88ratio Sodium Level 137mEq/L (134-144) Potassium Level 4.1mEq/L (3.5-5.2) Chloride Level 99mEq/L (97-108) Carbon Dioxide Level 19mmol/L (18-29) Blood Urea Nitrogen 39mg/dL (8-27) Creatinine 1.35mg/dL (0.76-1.27) Estimat Glomerular Filtration Rate 55mL/min (>59) Glucose Level 177mg/dL (60-99) Calcium Level 9.8mg/dL (8.5-10.1) Magnesium Level 1.5mg/dL (1.6-2.6) Total Bilirubin 1.4mg/dL (0.0-1.2) Aspartate Amino Transf (AST/SGOT) 13U/L (0-50) Alanine Aminotransferase (ALT/SGPT) 9U/L (0-44) Alkaline Phosphatase 73U/L (25-160) Pro-B-Type Natriuretic Peptide 3618pg/mL (0-486) Total Protein 7.7g/dL (6.4-8.4) Albumin 3.6g/dL (3.4-5.0) Thyroid Stimulating Hormone (TSH) 2.570uIU/mL (0.450-4.500) Free Thyroxine 1.16ng/dL (0.82-1.77) ECG Interpretation ECG Interpretation: wide complexes, irregular rate, tachycardia with a rate of 153 consistent with afib with LBBB compared to prior 01/20/2017 pt remains in afib with LBBB now significantly more tachy Time: 15:00 Interpreted by: ED physician X-Ray Chest Interpretation Chest Xray Interpretation: IMPRESSION: 1. Cardiomegaly with mild pulmonary edema suggesting congestive heart failure. Dictated by: Francisco Winston M.D. on 02/26/2017 at 15:27 Approved by: Francisco Winston M.D. on 02/26/2017 at 15:28 View: Portable, 1 view Interpretation / Wet Read by: Interpret - Radiologist Re-Eval/Medical Decision Med Decision/Clinical Course Patient is a 77 year old male with a hx of a CABG, CAD, CHF, Afib, LBBB, HTN, DM , and aortic stenosis on Warfarin who presents to the ED via EMS after being referred by his PCP for an abnormal EKG. He complains of racing heart and increasing SOB but reports he is asymptomatic currently all at rest. He describes his symptoms as intermittent SOB that is exacerbated with exertion and lying flat. He reports that his symptoms are not new but significantly worsened today. He denies chest pain, leg swelling, or any other symptoms. He reports that he has not taken his metoprolol (100mg 2x a day) since the day before yesterday since his heart monitor has been reading a rate of less than 50. He reports this morning his heart rate was 43. His switch operator is Dr. Fortune. He stopped taking his digoxin 2 weeks ago. Here in the emergency department the patient is hemodynamically stable and alert /awake and relatively symptom free at rest. EKG was obtained and interpreted by myself as documented above. Notably he appeared to be in atrial fibrillation with rapid ventricular response and concomitant left bundle branch block with a heart rate in the 150s. Of note he has been in A. fib with left bundle branch block in the past though is notably more tachycardic from baseline. Laboratory studies were notable as below No leukocytosis hematorit 37.3 near baseline BUN 39, creatinine 1.35 both acutely elevated from baseline no sig electrolyt abnormalities trop 0.016 no prior BNP 3618, no prior Chest xray: mild cardiomegaly and pulm edema Here in the emergency department the patient was given 324 mg of aspirin. Patient was discussed with switch operator scientific publications editor who recommended oral and IV metoprolol for rate control. Patient was given 25 mg aliquots of metoprolol with improvement in his heart rate into the 1 teens though he became mildly hypotensive and reported feeling groggy. His blood pressure recovered quickly after holding further doses of metoprolol. The patient does have elevated troponin he is chest pain-free and in the setting of his acute kidney injury this is difficult to interpret. I suspect that his troponin anemia may be related to demand ischemia in the setting of his rapid ventricular response. We will need to trend his troponin. Patient will be further evaluated by cardiology for ongoing management of his A. fib with RVR. I suspect his home heart rate monitor may be indirectly reading his heart rate as I very much doubt that he had a rate in the 40s at home just prior to arriving here in the 150s. Patient was discussed with hospitalist accepted for further management and consultation with cardiology. Time of Eval: 15:32 Re-Evaluation/Progress Note: Rechecked patient. Discussed plan for admission. Patient understands and agrees with plan. All questions addressed at this time. Consultation #1: Referral / Consult Name: Naye Goldstein MD Consulted With: Cardiology Call Returned at: 15:17 Environmental Programs Manager: Agrees with eval, Agrees with plan Note: Discussed pt's case. Suggest metoprolol IV and oral dose. Recommends admission and diltiazem drip if needed. Consultation #2: Referral / Consult Name: Aditya Duffy MD Consulted With: Hospitalist Call Returned at: 17:06 Environmental Programs Manager: Will see patient, Agrees with eval, Agrees with plan, Accepts admit Note: Discussed pt case. Accepts admit Counseled Regarding: Diagnosis, Lab results, Need for admission Discharge & Departure Primary Impression: Atrial fibrillation with RVR Additional Impressions: LBBB (left bundle branch block) Elevated troponin Pulmonary edema Chronicity: acute Qualified Code: J81.0 - Acute pulmonary edema Demand ischemia Shortness of breath Disposition: ADMITTED TO HOSPITAL Discharge Condition All VS Reviewed: Yes Condition: Stable Referrals: Temitope Buenrostro PA-C (PCP) Calin Waller MD (Family) Crit Care Except Billable Proc Time Spent: 105-134 minutes Services Performed: Patient management by me, Time spent at bedside, Reviewing test results, Reviewing imaging, Discussing patient care, Documentation in record, Time with fam/surrogate Scribe Attestation Portions of this note were transcribed by Noam Spivey. I, Dr. Rendon personally performed the history, physical exam and medical decision-making; I reviewed and confirmed the accuracy of the information in the transcribed note. Signed by: Noam Spivey 02/26/2017, [id number] copies to: Temitope Buenrostro PA-C, Beck O MD Feb 26, 2017 15:21 NOAM SPIVEY Feb 26, 2017 15:27
--- NOTE | 2017-02-26 15:29 | DRSVH ---
PROCEDURE: X-RAY CHEST ONE VIEW, PORTABLE ([id number]) INDICATIONS: Chest pain TECHNIQUE: One view of the chest was acquired. COMPARISON: [facility], CR, XR CHEST 1VW (PORTABLE), 01/09/2017, 2:10. FINDINGS: Surgical changes and devices: Postsurgical changes are redemonstrated in the mediastinum. Lungs and pleura: No pleural effusions or pneumothorax. There is mild pulmonary edema. Mediastinum: Mediastinal contours appear unchanged. There is mitral annular calcification again not ed. Heart size is enlarged. Bones and chest wall: No suspicious bony lesions. Overlying soft tissues appear unremarkable. IMPRESSION: 1. Cardiomegaly with mild pulmonary edema suggesting congestive heart failure. Dictated by: Francisco Winston M.D. on 02/26/2017 at 15:27 Approved by: Francisco Winston M.D. on 02/26/2017 at 15:28
[2017-02-26 15:30] LABS: INR 2.88 ratio; TROPONIN T 0.016 ug/L (0.0-0.011)
[2017-02-26] MEDS ORDERED: LISI-571 PO (15:32)
[2017-02-26] MEDS ORDERED: FLAX100038 PO (15:32)
[2017-02-26] MEDS ORDERED: METF-778 PO (15:32)
[2017-02-26] MEDS ORDERED: MULT-1018 PO (15:32)
[2017-02-26] MEDS ORDERED: ROSU5TAB PO (15:32)
[2017-02-26] MEDS ORDERED: SPIR25TA3 PO (15:32)
[2017-02-26] MEDS: MeTOProlol 1 mg/mL 5 mL Inj IVPUSH SCH ×2 (15:36→15:54)
[2017-02-26 15:41] LABS: Magnesium 1.5 mg/dL (1.6-2.6)
[2017-02-26] MEDS ORDERED: Ondansetron 2 mg/mL 2 mL Inj IVPUSH PRN ×2 (16:20→17:55)
[2017-02-26] MEDS ORDERED: Alum-Mag Hydrox-Simeth 30 mL Suspension PO PRN ×2 (16:20→17:55)
--- NOTE | 2017-02-26 17:37 | PCM.HPMED ---
Subjective Date of Service Feb 26, 2017 Primary Provider: Admitting Physician: Aditya Duffy MD Primary Care Physician: Temitope Buenrostro PA-C Attending Physician: Aditya Duffy MD Admit Status: From the Emergency Department Chief Complaint: Shortness of breath History of Present Illness: This is a 77-year-old male with past medical history significant for coronary disease status post CABG, diabetes mellitus type II, atrial fibrillation on Coumadin, hypertension, obstructive sleep apnea, and valvular heart disease with aortic valve replacement who presented from his primary care provider's office due to shortness of breath. Patient was discharged from the hospital on 01/10/2017 after traumatic fall. His states that he was doing well until several days ago when he began to develop worsening shortness of breath. He states that the shortness of breath is worse with laying down and exertion.. Associated symptoms: lack of appetite and decreased fluid intake. Associated symptoms: Clear nasal congestion. Patient has chronic lower extremity swelling but states this is improved. He denies any chest pain or pressure, nausea, vomiting, diaphoresis, numbness or tingling in extremities, lower extremity pain. Of note, the patient has had several medication changes recently. Approximately 1-2 weeks ago the patient notified his assistant store manager operations that his heart rate had been persistently measured in the 50s at home. For this reason his digoxin was stopped. Over the last several days he has noticed his heart rate has been in the 40s and for this reason he has held his metoprolol for several days. He states he measures his heart rate with a blood pressure cuff and he is unsure if this is still working correctly. Initial vital signs in the emergency department temperature 36.5 Celsius, pulse 146, respiratory rate 24, blood pressure 117/96, satting at 96% on room air. Initial laboratory values WBC 6.3, hemoglobin 11.6, hematocrit 37.3, platelet 168. BUN 39, creatinine 1.35, glucose 177, total bilirubin 1.4. Troponin T 016. ProBNP 3618. Chest x-ray showed cardiomegaly with mild pulmonary edema suggestive of congestive heart failure. EKG showed atrial fibrillation with rate of 153 and left bundle branch block. In the emergency department cardiology was contacted and they suggested giving patient metoprolol tartrate 25 mg orally and metoprolol tartrate 5 mg IV push. After receiving this patient states that he is symptomatically improved. His heart rates are now in the low 100s. Review of Systems: A comprehensive review of systems was conducted with the patient and found to be negative except as above in the History of Present Illness. Allergies Coded Allergies: Ghveruk-Bms-Wzn Reductase Inhibitor (Verified Allergy, Severe, 02/26/17) unable to walk hydrocodone (Verified Allergy, Severe, Shortness of Breath, 02/26/17) atorvastatin (Verified Allergy, Intermediate, muscle weakness, "can't walk ", 02/26/17) fluticasone (Verified Allergy, Intermediate, Hives, 02/26/17) gemfibrozil (Verified Allergy, Intermediate, 02/26/17) pt cannot remember reaction but states not being able to walk was r/t only to statins. simvastatin (Verified Allergy, Intermediate, muscle weakness "can't walk" , 02/26/17) Uncoded Allergies: crestor (Allergy, Intermediate, muscle weakness, can't walk, 10/31/07) red yeast rice (Allergy, Unknown, 10/31/07) Home Medications Crestor 5 mg tablet take 0.5 tablet by oral route every week flaxseed oil 1,000 mg capsule Take one capsule twice a day fluticasone 50 mcg/actuation nasal spray,suspension inhale 2 spray by intranasal route every day in each nostril furosemide 40 mg tablet take 1 and 1/2 tablet (60 mg) by oral route twice daily at 8:30 and 4:30 glipizide 5 mg tablet take 1 tablet by oral route every day lisinopril 10 mg tablet take half of a tablet (5mg) by oral route every day magnesium oxide 400 mg tablet 1 tablet by mouth daily metformin 1,000 mg tablet take 1 tablet by oral route 2 times every day with morning and evening meals metoprolol succinate ER 100 mg tablet,extended release 24 hr take 1 tablet by oral route twice daily Hold for Heart Rate Less than 50 Multi-Day 1 tablet by mouth daily OneTouch Ultra Test strips test one times a day spironolactone 25 mg tablet take 0.5 tablet by oral route every day Tylenol 325 mg tablet take 2 tablet by oral route every 4 hours as needed Vitamin D3 1,000 unit tablet take 1 tablet by oral route every day warfarin 2.5 mg tablet take 1 tablet by oral route every day PMH Diabetes mellitus type II Chronic atrial fibrillation on warfarin Chronic systolic congestive heart failure Coronary artery disease status post CABG 4 Pacemaker placement Aortic stenosis Essential hypertension BPH Sleep apnea and noncompliant CPAP Last echocardiogram 05/10/2016: Interpretation Summary 1) Normal left ventricular thickness and size with mildly reduced systolic function (EF about 45%). 2) Distal to apical septum and apical inferior wall are dyskinetic. 3) Normal right venticular size and function. Pacemaker lead visualized in the right ventricle. 4) Severely dilated left atrium. 5) Bioprosthetic aortic valve present, opens well. Mild transaortic gradient (mean 11mmHg). 5) Calcific mitral valve with mild to moderate mitral regurgitation and mild mitral stenosis (mean inflow gradient of 4.8mmHg). 6) Mild to moderate tricuspid regurgitation. 7) Compared to the Echo done 12/03/2014, no significant change. Surgical History Aortic valve replacement CABG 4 Right knee replacement Cataract surgery Pacemaker placement Family History Father of heart attack at age 62. Brothers and sisters all have coronary artery disease. Social History Hx Alcohol Use: No Hx Substance Use: No Hx Tobacco Use: No Smoking Status: Never Smoker Exam Vital Signs Vital Sign - Last Date Time Temp Pulse Resp B/P Pulse Ox O2 Delivery O2 Flow Rate FiO2 02/26/17 16:48 92 22 111/87 96 Room Air 02/26/17 15:01 36.5 Exam General: No acute distress, appropriately interactive HEENT: Normocephalic, atraumatic. External ears without defect. Pupils equal, round, and reactive to light and accommodation. Anicteric sclerae, moist conjunctivae, and no lid lag. Oropharynx free of erythema and cobble stoning with moist mucosa. Neck: Supple with full range of motion. No jugular venous distension. No bruits. No lymphadenopathy or thyromegaly. Cardiovascular: Irregularly irregular with no murmurs, rubs, or gallops appreciated Pulmonary: Clear to auscultation bilaterally.. No wheezes or rhonchi. Normal respiratory effort with no use of accessory muscles. Abdomen: Bowel tones present. Obese, soft, nontender, nondistended. No hepatosplenomegaly or masses appreciated. Extremities: Legs are in wraps due to chronic edema. Skin: Normal temperature, turgor, and texture; no rash, ulcers, or subcutaneous nodules appreciated. Neurological: Cranial nerves grossly intact. Normal muscle strength, tone, and bulk. Reflexes, coordination, and sensory function within normal limits. No known gait impairment. Psychiatric: Normal mood and affect. Alert and oriented to person, place, and time. Lab and Diagnostics Result Diagram: 02/26/17 1455 02/26/17 1455 X-Rays, CTs and MRIs Chest x-ray on 02/26/2017: IMPRESSION: 1. Cardiomegaly with mild pulmonary edema suggesting congestive heart failure. Dictated by: Francisco Winston M.D. on 02/26/2017 at 15:27 Assessment & Plan This is a 77-year-old male with past medical history significant for chronic atrial fibrillation on warfarin, coronary disease status post CABG, valvular heart disease status post aortic valve replacement, hypertension, and pacemaker placement who presents today for shortness of breath. EKG showed atrial fibrillation with RVR. The patient stopped his digoxin one to 2 weeks ago and has held his metoprolol for the last 2 days due to low heart rates found on his home blood pressure machine. As patient reports low heart rates it is possible he is tachybrady syndrome as well. After receiving Metoprolol in the emergency department the patient's shortness of breath resolved. The shortness of breath was likely due to the atrial fibrillation. Differential includes heart failure. Atrial fibrillation with RVR, present on admission, ongoing: -Patient received metoprolol tartrate 25 mg orally and metoprolol 5 mg IV push in the emergency department. His rate is now in the low 100s. -Cardiology was consulted by emergency department physician. She suggested metoprolol IV pushes. If this does not control his heart rate then we can add dilt drip. -Will continue Metoprolol XL 50mg BID in morning. -Metoprolol 5mg IV one time PRN for HR >120 -TSH/T4 ordered. -Patient will be placed on telemetry. -INR is currently 2.88. -Continue warfarin. Elevated troponin, present on admission, ongoing: -History of coronary disease status post CABG. -Trend troponins 3. Acute kidney injury, present on admission, ongoing: -On admit BUN 39, creatinine 1.35. BUN/CR >20. Likely prerenal azotemia. -Patient reports decreased fluid intake. -Will need to watch fluid status closely. -NS at 50ml/hr. Chronic normocytic anemia, present on admission, ongoing: -Review of past records shows that patient's hemoglobin and hematocrit are stable. Admit hemoglobin 11.6 and hematocrit 37.3. -Continue to monitor. Hypomagnesemia, present on admission, ongoing: -On admit mag 1.5. -Will replace with 2g mag. -Recheck mag in am. Elevated total bilirubin, present on admission, ongoing: -On admit total bilirubin 1.4. -No elevation in alk phos, ast, alt. -Continue to monitor. Long Qt, present on admission, ongoing: -Qtc 554. Patient also has LBBB which is likely prolonging. -Hold Qt prolonging medications. Diabetes mellitus type 2, present on admission, stable: -Last A1c 12/26/2016 was 6.3. -Humalog low dose correctional. -Continue home meds. Congestive heart failure, present on admission, ongoing: -Last echo in 04/2016 showed EF of 45%, severely dilated left atrium. -Daily weights -Monitor fluid status -If worsening shortness of breath will consider Lasix. -Consider repeat echocardiogram if worsening symptoms. Coronary artery disease status post CABG 4, present on admission: -No chest pain or pressure. -Troponin are trending. -On telemetry. Patient on Warfarin for DVT prophylaxis. Patient is admitted under observation status with expected length of stay less than 2 midnights due to severity of presenting symptoms, risk of adverse event, and complexity of treatment plan. Pain Evaluation: Adequate Pain Control Resuscitation Status: CPR: Attempt Resuscitation Attending Statement The patient was seen and examined together with Dr. Braynt on 02/26/2017 and I agree with the history, exam and plan as outlined in the note above. . copies to: Temitope Buenrostro PA-C, Christopher DO Feb 26, 2017 17:37 Aditya Duffy MD Feb 27, 2017 18:04
[2017-02-26] MEDS ORDERED: METO-274 PO (17:48)
[2017-02-26] MEDS ORDERED: LISI10TA PO (17:48)
[2017-02-26] MEDS ORDERED: FLUT16SP NASAL (17:48)
[2017-02-26] MEDS ORDERED: FURO40TA4 PO (17:48)
[2017-02-26] MEDS ORDERED: METF1000 PO (17:48)
[2017-02-26] MEDS ORDERED: ACET325C PO (17:48)
[2017-02-26] MEDS ORDERED: CHOL10008 PO (17:48)
[2017-02-26] MEDS ORDERED: Polyethylene Glycol (PEG) 17 Gm Powder PO PRN (17:55)
[2017-02-26] MEDS: Insulin LISPRO 300 Unit/3 mL Inj SUBQ SCH ×2 (18:09→22:00)
[2017-02-26] MEDS ORDERED: Glucose 40% Oral Gel 15 Gm Tube PO PRN (18:10)
[2017-02-26] MEDS ORDERED: Magnesium Sulf 2 Gm/50mL Water 2 GM in IV Premix 1 EACH IV ONE (18:10)
[2017-02-26] MEDS ORDERED: Fluticasone 0.05% 15 Spray/2 Gm 16 Gm Nasal Spray NASAL PRN (18:20)
[2017-02-26] MEDS ORDERED: MeTOProlol 1 mg/mL 5 mL Inj IVPUSH ONE (18:20)
[2017-02-26] MEDS: 0.9% Sodium Chloride 1,000 ML IV SCH (18:38)
--- NOTE | 2017-02-26 19:41 | PCM.CONPHA ---
Subjective Date of Service: Feb 26, 2017 Shortness of breath Reason for Pharmacy Consult: Anticoagulation Management Objective Vital Signs Date Time Temp Pulse Resp B/P Pulse Ox O2 Delivery O2 Flow Rate FiO2 02/26/17 17:59 125 02/26/17 17:53 36.8 98 18 114/83 97 Room Air 02/26/17 16:48 92 22 111/87 96 Room Air 02/26/17 16:16 108 22 92/65 97 Room Air 02/26/17 15:47 108 19 101/85 96 Room Air 02/26/17 15:38 139 18 109/93 97 Room Air 02/26/17 15:01 36.5 146 24 117/96 96 Room Air Weight (Kilograms): 132.000 Height (Feet): 6 Height (Inches): 2.00 Test 02/26/17 14:55 White Blood Count 6.3th/mm3 (3.8-10.1) Red Blood Count 4.17mil/mm3 (4.40-5.80) Hemoglobin 11.6g/dL (13.8-17.2) Hematocrit 37.3% (41.0-50.0) Mean Corpuscular Volume 89.4fL (81-100) Mean Corpuscular Hemoglobin 27.8pg (27.0-35.0) Mean Corpuscular Hemoglobin Concent 31.1% (32.0-37.0) Red Cell Distribution Width 18.0% (12.3-15.4) Platelet Count 168bil/L (150-400) Neutrophils (%) (Auto) 79.0% (40-74) Lymphocytes (%) (Auto) 12.5% (14-46) Monocytes (%) (Auto) 7.3% (4-12) Eosinophils (%) (Auto) 0.8% (0-5) Basophils (%) (Auto) 0.2% (0-3) Prothrombin Time 31.5sec (8.1-12.5) Prothromb Time International Ratio 2.88ratio Sodium Level 137mEq/L (134-144) Potassium Level 4.1mEq/L (3.5-5.2) Chloride Level 99mEq/L (97-108) Carbon Dioxide Level 19mmol/L (18-29) Blood Urea Nitrogen 39mg/dL (8-27) Creatinine 1.35mg/dL (0.76-1.27) Estimat Glomerular Filtration Rate 55mL/min (>59) Glucose Level 177mg/dL (60-99) Calcium Level 9.8mg/dL (8.5-10.1) Magnesium Level 1.5mg/dL (1.6-2.6) Total Bilirubin 1.4mg/dL (0.0-1.2) Aspartate Amino Transf (AST/SGOT) 13U/L (0-50) Alanine Aminotransferase (ALT/SGPT) 9U/L (0-44) Alkaline Phosphatase 73U/L (25-160) Troponin T 0.016ug/L (0.0-0.011) Pro-B-Type Natriuretic Peptide 3618pg/mL (0-486) Total Protein 7.7g/dL (6.4-8.4) Albumin 3.6g/dL (3.4-5.0) Thyroid Stimulating Hormone (TSH) 2.570uIU/mL (0.450-4.500) Free Thyroxine 1.16ng/dL (0.82-1.77) Assessment/Plan Assessment/Plan WARFARIN MANAGMENT A\ 77yo M admitted for AFIB and CBBB History of Aortic valve replacement (biosthetic), CHF, DM2, Current INR = 2.99 goal INR 2-3 HCT=37.3 Cvv=156 with no bleeding reported by RN Home Warfarin dose 2.5mg everyday Rosuvastatin can increase INR and risk of bleed; Spironolactone can decrease Warfarin effectiveness. P\Will continue Warfarin 2.5mg po x1 tonight (pt had not taken dose today) Daily INR Thank you for opportunity to consult Sam Deras RP Feb 26, 2017 19:41
[2017-02-27] VITALS (8 sets, daily range): BP systolic 103–134; BP diastolic 54–86; PULSE 48–151; RESP 18–22; O2SAT 91–98
[2017-02-27] MEDS ORDERED: Heparin 5,000 Unit/mL Inj SUBQ SCH (00:30)
[2017-02-27 03:13] LABS: BASOPHILS % (AUTO) 0.2 % (0-3); EOSINOPHILS % (AUTO) 1.7 % (0-5); MONOCYTES % (AUTO) 6.2 % (4-12); Mean Corpuscular Hemoglobin 27.3 pg (27.0-35.0); Mean Corpuscular Volume 91.5 fL (81-100); NEUTROPHILS % (AUTO) 76.9 % (40-74); Platelet Count 148 bil/L (150-400)
[2017-02-27 03:26] LABS: INR 2.63 ratio
[2017-02-27 03:34] LABS: Magnesium 1.9 mg/dL (1.6-2.6)
[2017-02-27] MEDS: Insulin LISPRO 300 Unit/3 mL Inj SUBQ SCH ×4 (08:00→20:40)
[2017-02-27] MEDS ORDERED: MeTOProlol XL 50 mg ER24 Tablet PO SCH ×3 (08:30→16:00)
[2017-02-27] MEDS ORDERED: MeTOProlol 1 mg/mL 5 mL Inj IVPUSH ONE (10:00)
[2017-02-27 12:20] LABS: APPEARANCE,URINE SLIGHTLY CLOUDY (CLEAR,HAZY); COLOR,URINE YELLOW (YELLOW); OCCULT BLOOD,URINE NEGATIVE (NEGATIVE); UROBILINOGEN,URINE NORMAL (NORMAL)
[2017-02-27] MEDS: 0.9% Sodium Chloride 1,000 ML IV SCH (13:41)
--- NOTE | 2017-02-27 15:50 | DRSVH ---
[facility] [address] [place] [address] Echocardiogram Report Name: NEIDA WAGNER EStudzach Date: 02/27/2017 Height: 74 in Hospital Exam Location: [facility] Weight: 29 3 lb Gender: Male BSA: 2.6 m2 : 1940 Age: 77 yrs BP: 134/85 mmHg Reason For Study: SOB History: CABG, AVR-bioprosthetic Ordering Physician: AMANDO [facility] Performed By: Lakia Amador Referring Physician: Keren Haas Interpretation Summary Left ventricular systolic function is severely reduced. The ejection fraction is estimated to be 15-20%. Compared to the prior exam, left ventricular function is significantly decreased. The right ventricle is mildly dilated. Right ventricular systolic function is moderately reduced. There is moderate mitral regurgitation. There is severe mitral annular calcification. There is a bioprosthetic aortic valve. The prosthetic aortic valve is well-seated. There is no hemodynamically significant valvular aortic stenosis. There is moderate tricuspid regurgitation. The right ventricular systolic pressure is estimated at 45 mmHg assuming a right atrial pressure of 15 mm Hg. Procedure: A two-dimensional transthoracic echocardiogram with color flow and Doppler was performed. The study quality was technically adequate. Comparison is made with the echocardiogram of 05/10/2016. A contrast injection of Definity was performed to improve assessment of LV function. The patient was in atrial fibrillation with heart rates between 94-145 bpm during the exam. Left Ventricle: The left ventricle is moderately dilated. Left ventricular wall thickness is mild-moderately increased. Left ventricular systolic function is severely reduced. The ejection fraction is estimated to be 15- 20%. Compared to the prior exam, left ventricular function is significantly decreased. Apical dyskinesis, anterior, mid to distal ocasio are akinetic. Diastolic function could not be accurately assessed due to atrial fibrillation. Right Ventricle: There is a pacemaker lead in the right ventricle. The right ventricle is mildly dilated. Right ventricular systolic function is moderately reduced. Atria: The left atrium is severely dilated. The right atrium is mildly dilated. There is no Doppler evidence for an interatrial shunt. Mitral Valve: There is severe mitral annular calcification. There is moderate mitral regurgitation. Aortic Valve: There is a bioprosthetic aortic valve. The prosthetic aortic valve is well-seated. The prosthetic aortic valve is not well visualized. There is no hemodynamically significant valvular aortic stenosis. No aortic regurgitation is present. Tricuspid Valve: The tricuspid valve leaflets are thin and pliable. There is moderate tricuspid regurgitation. The right ventricular systolic pressure is estimated at 45 mmHg assuming a right atrial pressure of 15 mm Hg. Pulmonic Valve: The pulmonic valve is normal in structure and function. There is a trace or physiologic amount of pulmonic regurgitation. Great Vessels: The aortic root is normal size. The ascending aorta is mildly enlarged. The IVC is dilated (diameter is greater than 2.1 cm) and it collapses less than 50% with a sniff. This suggests a high right atrial pressure of 15 mm Hg. Pericardium/ Pleura There is no pericardial effusion. MMode/2D Measurements & Calculations LVIDd: 6.3 cm RA long axis: 6.3 cm LVOT diam LVIDs: 4.9 cm LA A2 area: 48.5 cm FS: 22.6 % LA A4 area: 46.3 cm RA area: 24.4 cm AoV Opening EPSS: 1.3 cm LA length (vol): 7.3 cm RA vol: 79.8 ml IVSd: 1.4 cm LA vol: 259.9 ml RA : 31.2 ml/m2 Ao root diam LVPWd: 1.1 cm LA vol index Aortic Jxn : 101.7 ml/m2 IVC diam: 3.3 cm asc Aorta Diam: 3.6 cm EDV(MOD-sp2) LV nash. diameter/BSA LV sys. diameter/BSA RVD1 (basal) (cm/m^2): 2.5 (cm/m^2): 1.9 : 4.9 cm ESV(MOD-sp2) EF(MOD-sp2) RVD2 (mid) TAPSE: 0.78 cm : 2.6 cm Doppler Measurements & Calculations Ao V2 max MV E max jose eduardo TR max jose eduardo MV V2 mean : 191.1 cm/sec : 159.7 cm/sec : 270.7 cm/sec : 69.9 cm/sec Ao max PG MV P1/2t: 43.5 msec TR max PG MV mean PG : 14.8 mmHg : 29.4 mmHg Ao mean PG MVA(VTI): 0.97 cm PA V2 max MV V2 VTI MR ERO: 0.26 cm2 : 52.3 cm/sec : 23.6 cm LVOT Max Jose Eduardo PA mean PG : 51.1 cm/sec : 0.55 mmHg PA Accel Time KIMBERLY(I,D): 0.90 cm sev ratio: 0.24 MV P1/2t max jose eduardo Ao V2 mean LV V1 max PG MR flow rate : 117.6 cm/sec : 99.5 cm3/sec MVA(P1/2t): 5.1 cm2Ao V2 VTI: 25.4 cm LV V1 VTI: 6.2 cmMR PISA radius KIMBERLY(V,D): 0.98 cm2 PA V2 mean KIMBERLY indexed to BSA : 34.4 cm/sec (cm^2/m^2): 0.35 Electronically signed by: Kartik Adams on Reading Physician:02/27/2017 03:49 PM
--- NOTE | 2017-02-27 16:29 | CONS ---
[address] [address] CONSULTATION REPORT PATIENT: NEIDA WAGNER : 1940 MR#: [id number] ADMIT: 02/26/2017 JOB ID: [id number] DATE OF SERVICE: 02/27/2017 CARDIOLOGY CONSULTATION: I was asked by the hospitalist team to consult on this patient given admission with shortness of breath and atrial fibrillation. HISTORY OF PRESENT ILLNESS: The patient is a 77-year-old man with past medical history significant for bypass surgery, aortic valve replacement and for placement of a pacemaker. He also has atrial fibrillation and probable pre-existing left bundle branch block based upon review of old EKGs. He is currently treated with 100 mg b.i.d. of metoprolol for atrial fibrillation. He has been using a pulse credit rating checker which has been telling him that his heart rates were in the 50s, and because of this, he was quite concerned and decided to hold off on his metoprolol for about the past 3-4 days. Unfortunately he started feeling increased shortness of breath. He felt short of breath with lying down and with exertion. He denied any chest pain, chest pressure, increased lower extremity edema. He is being treated for wounds on his left leg. PAST MEDICAL HISTORY/PROBLEM LIST: 1. History of diabetes mellitus. 2. History of chronic atrial fibrillation on warfarin. 3. History of systolic heart failure. 4. Coronary artery disease status post bypass. 5. Aortic stenosis status post aortic valve replacement. 6. Pacemaker placement. 7. Sleep apnea. OUTPATIENT MEDICATIONS: Include: 1. Crestor 2.5 mg once weekly. 2. Fluticasone nasal spray. 3. Furosemide 60 mg by mouth twice a day 8:30 and 4 p.m. 4. Glipizide 5 mg daily. 5. Lisinopril 5 mg daily 6. Magnesium oxide. 7. Metformin 1000 mg b.i.d. 8. Metoprolol succinate 1 tablet b.i.d. Hold for heart rate less than 50. 9. Spironolactone 0.5 mg daily. 10. Warfarin. ALLERGIES: VARIOUS STATINS, HYDROCODONE, ATORVASTATIN, FLUTICASONE, GEMFIBROZIL, SIMVASTATIN, RED YEAST RICE. REVIEW OF SYSTEMS: Overall health: No fevers, chills, night sweats, or weight loss. GI: No problems with ulcers or blood in the stool. : No dysuria, hematuria. Pulmonary: Increased shortness of breath. Cardiac: No chest pain or chest pressure, but increased shortness of breath. Increased heart rate. Also reports lower heart rates. Denies syncope, presyncope. Derm: Has wounds affecting his left leg which are being attended to by the [facility]. Endocrine: No heat or cold intolerance. Musculoskeletal: No joint pain or swelling. Ophtho: No acute vision changes. ENT: No difficulty swallowing or sore throat. Psych: No acute issues. Heme: No easy bruising or bleeding. All other review of systems on 12-point review of systems negative. PHYSICAL EXAMINATION: Blood pressure has been as low as the 60s early in the morning but up at about 120s-130s. Right now he is afebrile. Blood pressure 118/86. His sats 95% on room air. General: In no acute distress. Speaking in full sentences without apparent shortness of breath. Head and neck examination: Normocephalic, atraumatic. Neck: Do not appreciate obvious JV distention or carotids. No obvious bruits. Heart examination: Somewhat irregular, distant. Lungs: Clear to auscultation anteriorly. Back: No CVA tenderness to palpation. Abdomen: Soft, nontender. Extremities: Warm, no appreciable edema. Good distal pulses appreciated. He has some chronic venous stasis changes appreciated on the lower legs. He has wounds which are bandaged and will be attended to by the [facility] staff right now. Psych: Appropriate mood and affect. Neuro: Alert and interactive. Gait not tested. ENT: Mucous membranes moist. Ophtho: Vision grossly intact. CURRENT MEDICATIONS: 1. Loratadine 10 mg daily. 2. Insulin. 3. Lasix 60 mg daily. 4. Aspirin. 5. Metformin. 6. Spironolactone 12.5 daily. 7. Lisinopril 5 daily. 8. Glipizide 5 mg daily. I just had the hospital team increase his metoprolol up to his home dose of 100 mg b.i.d. He is also on warfarin as well as Crestor. LABORATORIES: Show a white count 5.3, H and H 10.3 and 34.5, platelets of 148,000. Sodium 139, and creatinine 39 and 1.2. Troponin is borderline elevated, likely related to atrial rate and possibly some heart failure. ProBNP is elevated to 3618. IMAGING: Shows a chest x-ray shows cardiomegaly with mild pulmonary edema. Telemetry shows that the lowest heart rates are 80. I have been told that he was having heart rates in the 40s and this was by pulse oximetry in his room. This is not accurate. I suspect that the measurement he is doing at home are not accurate as well. I tried to palpate his radial pulse and it is sometimes more easily palpable than others. Therefore, I would suggest that the measurements obtained by his monitor are probably inaccurate as well. IMPRESSION: The patient comes in with increased shortness of breath after holding his metoprolol for seven days given concerns about low heart rates. I explained to him that his pacemaker will take care of his low heart rates and he does not need to worry about that and that he should take his metoprolol at the scheduled dose. PLAN: 1. We are going to put him back on his metoprolol dose 2. We continue him on Lasix. If he still is short of breath, an IV dose of Lasix would be appropriate prior to his discharge. 3. Continue with warfarin. 4. I have advised the patient that the heart rates he is measuring with his little monitor may be inaccurate and again told him that the pacemaker would come in and pace if he had low heart rates. He expressed understanding. I spent 40 minutes reviewing his old records reviewing his pacemaker information, speaking with the patient, examining him and discussing his case with the hospital team. TAMI
[2017-02-27] MEDS ORDERED: Furosemide 10 mg/mL 10 mL Inj IVPUSH ONE (16:45)
--- NOTE | 2017-02-27 16:52 | PCM.PNMED ---
Subjective Date of Service Feb 27, 2017 Subjective This is a 77 year old male with history significant for atrial fibrillation, systolic CHF, CAD s/p CABG, aortic valve replacement, and hypertension who presented with SOB and in atrial fibrillation with rapid ventricular response. Overnight, he some variable heart rates with low reported in the 50's by pulse ox. He states that the shortness of breath persists but is much improved since arriving to the hospital. He denies any chest pain or pressure, nausea, vomiting, fevers. Exam Vital Signs Vital Sign - Last Date Time Temp Pulse Resp B/P Pulse Ox O2 Delivery O2 Flow Rate FiO2 02/27/17 16:37 36.4 146 20 104/69 98 Room Air Intake and Output 02/26/17 02/26/17 02/27/17 Cumulative From/Thru 15:00 23:00 07:00 02/26/17 15:01 - 02/27/17 06:39 Intake Total 1266 ml 1266 ml Output Total 475 ml 475 ml Balance 791 ml 791 ml Intake Oral 736 ml 736 ml IV Total 530 ml 530 ml Output Urine Total 475 ml 475 ml Exam General: No acute distress, appropriately interactive HEENT: Normocephalic, atraumatic. External ears without defect. Pupils equal, round, and reactive to light and accommodation. Anicteric sclerae, moist conjunctivae, and no lid lag. Oropharynx free of erythema and cobble stoning with moist mucosa. Neck: Supple with full range of motion. No jugular venous distension. No bruits. No lymphadenopathy or thyromegaly. Cardiovascular: Irregularly irregular with no murmurs, rubs, or gallops appreciated Pulmonary: Clear to auscultation bilaterally.. No wheezes or rhonchi. Normal respiratory effort with no use of accessory muscles. Abdomen: Bowel tones present. Obese, soft, nontender, nondistended. No hepatosplenomegaly or masses appreciated. Extremities: Legs are in wraps due to chronic edema. Skin: Normal temperature, turgor, and texture; no rash, ulcers, or subcutaneous nodules appreciated. Neurological: Cranial nerves grossly intact. Normal muscle strength, tone, and bulk. Reflexes, coordination, and sensory function within normal limits. No known gait impairment. Psychiatric: Normal mood and affect. Alert and oriented to person, place, and time. IVs and Medications Medications Reviewed: Medications were reviewed in detail Lab and Diagnostics Result Diagram: 6/14/17 0255 02/27/17 0255 X-Rays, CTs and MRIs Chest x-ray on 02/26/2017: IMPRESSION: 1. Cardiomegaly with mild pulmonary edema suggesting congestive heart failure. Dictated by: Francisco Winston M.D. on 02/26/2017 at 15:27 Assessment & Plan This is a 77-year-old male with past medical history significant for chronic atrial fibrillation on warfarin, coronary disease status post CABG, valvular heart disease status post aortic valve replacement, hypertension, and pacemaker placement who presented with shortness of breath and in atrial fibrillation with RVR. Atrial fibrillation with RVR, present on admission, ongoing: -Metoprolol succinate 100 mg BID. -Patient on telemetry. -INR is currently 2.63. -Continue warfarin. -Echocardiogram pending. Elevated troponin, present on admission, ongoing: -History of coronary disease status post CABG. -Troponin stable and trending down. Coronary artery disease status post CABG 4, present on admission: -No chest pain or pressure. -Troponin are stable and trending down. -On telemetry. Congestive heart failure, present on admission, ongoing: -Last echo in 04/2016 showed EF of 45%, severely dilated left atrium. -Daily weights -Monitor fluid status -Lasix 60 mg IV given. -Echocardiogram pending. -Continue Metoprolol, lisinopril, and spironolactone. Acute kidney injury, present on admission, ongoing: -On admit BUN 39, creatinine 1.35. BUN/CR >20. Likely prerenal azotemia. -Patient reports decreased fluid intake. -Will need to watch fluid status closely. -NS stopped. Chronic normocytic anemia, present on admission, ongoing: -Review of past records shows that patient's hemoglobin and hematocrit are stable. Admit hemoglobin 11.6 and hematocrit 37.3. -Continue to monitor. Hypomagnesemia, present on admission, ongoing: -Recheck mag in am. Elevated total bilirubin, present on admission, ongoing: -No elevation in alk phos, ast, alt. -Continue to monitor. Long Qt, present on admission, ongoing: -Qtc 554. Patient also has LBBB which is likely prolonging. -Hold Qt prolonging medications. Diabetes mellitus type 2, present on admission, stable: -Last A1c 12/26/2016 was 6.3. -Humalog low dose correctional. -Continue home meds. Patient on Warfarin for DVT prophylaxis. Patient is admitted under observation status with expected length of stay less than 2 midnights due to severity of presenting symptoms, risk of adverse event, and complexity of treatment plan. Pain Evaluation: Adequate Pain Control Resuscitation Status: CPR: Attempt Resuscitation Attending Statement The patient was seen and examined together with Dr. Bryant on 02/27/2017 and I agree with the history, exam and plan as outlined in the note above. . Norberto Bryant DO Feb 27, 2017 16:52 Aditya Duffy MD Feb 27, 2017 18:06 Norberto Bryant DO Feb 27, 2017 16:52
[2017-02-27] MEDS ORDERED: Furosemide 10 mg/mL 2 mL Inj IV ONE (17:50)
[2017-02-28] MEDS ORDERED: LORazepam 0.5 mg Tablet PO ONE (00:20)
[2017-02-28 03:36] LABS: BASOPHILS % (AUTO) 0.3 % (0-3); MONOCYTES % (AUTO) 6.1 % (4-12); Mean Corpuscular Hemoglobin 27.8 pg (27.0-35.0); Mean Corpuscular Volume 90.9 fL (81-100); NEUTROPHILS % (AUTO) 81.6 % (40-74); Platelet Count 186 bil/L (150-400)
[2017-02-28 03:52] VITALS: BP 125/80; PULSE 117; RESP 22; O2SAT 98
[2017-02-28 04:10] LABS: INR 3.33 ratio
[2017-02-28 05:32] VITALS: PULSE 114
[2017-02-28] MEDS ORDERED: MeTOProlol XL 50 mg ER24 Tablet PO SCH (08:50)
--- NOTE | 2017-02-28 09:01 | PCM.DIMED ---
Norberto Bryant DO 02/28/17 0850: Discharge Instructions Date of Service Feb 28, 2017 Dates of Hospitalization Feb 26, 2017 at 16:53 Discharge Diagnosis Discharge Diagnosis Atrial fibrillation Elevated troponin Coronary artery disease status post CABG 4 Congestive heart failure Acute kidney injury Chronic normocytic anemia Hypomagnesemia Elevated total bilirubin Long Qt in setting of LBBB. Diabetes mellitus type 2 Diet Discharge Diet: No restrictions Activity Discharge Activity: Limited until seen by PCP Call your provider Call your provider for: Fever or Chills, Shortness of breath, Bleeding, Chest pain, Vomitting, Excessive diarrhea, Weakness (unilateral) Patient Instructions Patient Instructions As we stated to you this morning we are going to discharge you. You presented to us in atrial fibrillation with a fast heart rate. We still have not controlled this hear rate completely. We discussed the risks of you leaving the hospital today including the risk of sudden cardiac . If you experience any chest pain or pressure, shortness of breath, lose consciousness, fevers, nausea, vomiting, indigestion, numbness or tingling in extremities then you need to return to the emergency department or call 911 immediately. We have increased your dose of Metoprolol. Take per instructions. As we discussed this can lead to low blood pressure and falls. Please be careful with positional changes such as going from the sitting to standing position. We have stopped your Lasix. We have started a new medication called torsemide in place of the Lasix. Take the torsemide per instructions. You need a PCP appoinmtnet within the next 5 days. You need to see a gallery or museum attendant within the next 1-2 weeks. At your next visit with the gallery or museum attendant consider getting a referral to Dr. Cespedes who is a specialist in atrial fibrillation. You can also speak to them to see if you are a candidate for a AICD (automatic implantable cardioverter-defibrillator). We have sent a referral to our social work department so you can resume home health. Patient will need to go to heart failure clinic as well. Follow-up with PCP in: 1 week (Joselin Buenrostro) Follow-up in: 1 week (Cardiology in 1-2 weeks.) Aditya Duffy MD 03/01/17 0632: Discharge Instructions Attending's Statement The patient was seen and examined together with Dr. Bryant on 02/28/2017 and I agree with the history, exam and plan as outlined in the note above. . Norberto Bryant DO Feb 28, 2017 08:50 Aditya Duffy MD Mar 01, 2017 06:32
[2017-02-28] MEDS ORDERED: METO-274 PO (09:05)
[2017-02-28] MEDS ORDERED: TORS20TA3 PO (09:05)
[2017-02-28 09:08] VITALS: BP 112/79; PULSE 128; RESP 22; O2SAT 96
[2017-02-28] MEDS: Insulin LISPRO 300 Unit/3 mL Inj SUBQ SCH (09:15)
--- NOTE | 2017-02-28 09:51 | PCM.DC.MED ---
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 Diabetes mellitus type [address] Goldstein of cardiology. Procedures XRay, CTs & MRIs Chest x-ray on 02/26/2017: IMPRESSION: 1. Cardiomegaly with mild pulmonary edema suggesting congestive heart failure. Dictated by: Francisco Winston M.D. on 02/26/2017 at 15:27 Cardiac Echo Impression Echocardiogram performed on 02/27/2017: Interpretation Summary Left ventricular systolic function is severely reduced. The ejection fraction is estimated to be 15-20%. Compared to the prior exam, left ventricular function is significantly decreased. The right ventricle is mildly dilated. Right ventricular systolic function is moderately reduced. There is moderate mitral regurgitation. There is severe mitral annular calcification. There is a bioprosthetic aortic valve. The prosthetic aortic valve is well-seated. There is no hemodynamically significant valvular aortic stenosis. There is moderate tricuspid regurgitation. The right ventricular systolic pressure is estimated at 45 mmHg assuming a right atrial pressure of 15 [address] Interpret[address] Dr. Adams. Brief History This is a 77-year-old male with past medical history significant for coronary disease status post CABG, diabetes mellitus type II, atrial fibrillation on Coumadin, hypertension, obstructive sleep apnea, and valvular heart disease with aortic valve replacement who presented from his primary care provider's office due to shortness of breath. Patient was discharged from the hospital on 01/10/2017 after traumatic fall. His states that he was doing well until several days before hospital admission when he began to develop worsening shortness of breath. He states that the shortness of breath was worse with laying down and exertion.. Associated symptoms included lack of appetite and decreased fluid intake. Associated symptoms included Clear nasal congestion. Patient has chronic lower extremity swelling but states this is improved. He denies any chest pain or pressure, nausea, vomiting, diaphoresis, numbness or tingling in extremities, lower extremity pain. Of note, the patien had several medication changes before admission. Approximately 1-2 weeks ago the patient notified his veneer lathe operator that his heart rate had been persistently measured in the 50s at home. For this reason his digoxin was stopped. Over the last several days he has noticed his heart rate has been in the 40s and for this reason he has held his metoprolol for several days. He states he measures his heart rate with a blood pressure cuff and he is unsure if this is still working correctly. Initial vital signs in the emergency department temperature 36.5 Celsius, pulse 146, respiratory rate 24, blood pressure 117/96, satting at 96% on room air. Initial laboratory values WBC 6.3, hemoglobin 11.6, hematocrit 37.3, platelet 168. BUN 39, creatinine 1.35, glucose 177, total bilirubin 1.4. Troponin T 016. ProBNP 3618. Chest x-ray showed cardiomegaly with mild pulmonary edema suggestive of congestive heart failure. EKG showed atrial fibrillation with rate of 153 and left bundle branch block. In the emergency department cardiology was contacted and they suggested giving patient metoprolol tartrate 25 mg orally and metoprolol tartrate 5 mg IV push. After receiving this patient states that he is symptomatically improved. His heart rates are now in the low 100s. Hospital Course This is a 77-year-old male with past medical history significant for chronic atrial fibrillation on warfarin, coronary disease status post CABG, valvular heart disease status post aortic valve replacement, hypertension, and pacemaker placement who presented with shortness of breath and in atrial fibrillation with RVR. During his hospital course we restarted his metoprolol succinate at 100mg BID. He had some shortness of breath throughout hospital stay but was otherwise asymptomatic. The morning of discharge he had rates in the 130's to 140's. We discharged him on Metoprolol succinate 150 mg BID. We have stopped his Lasix and started torsemide at 40mg daily. He will followup up with his PCP and cardiology. We suggested to him a possible referral to Dr. Pedroza for atrial fibrillation as well as a suggestion to explore possibility of AICD placement. We have asked him to go to heart failure clinic as well. Atrial fibrillation with RVR, present on admission, ongoing: -Patient asked to continue metoprolol succinate 150 mg BID -Patient asked to continue Warfarin. Elevated troponin, present on admission, stable: -History of coronary disease status post CABG. -Troponin stable and trended down. Coronary artery disease status post CABG 4, present on admission: -No chest pain or pressure. -Troponins trended down during hospital stay. Congestive heart failure, present on admission, ongoing: -Last echo in 04/2016 showed EF of 45%, severely dilated left atrium. Repeat echo on 02/27 showed EF 15%. This is not a new finding as he had a echo at [facility] two months ago which showed the same EF. -Lasix was changed to Torsemide on discharge. -Continued Metoprolol, lisinopril, and spironolactone. Acute kidney injury, present on admission, resolved: -On admit BUN 39, creatinine 1.35. BUN/CR >20. This was likely prerenal azotemia. Creatinine trended down throughout hospital stay. Chronic normocytic anemia, present on admission, stable: -This is chronic and stable. -Continue to monitor as a outpatient. Hypomagnesemia, present on admission, resolved: -Mag was replaced. Elevated total bilirubin, present on admission, resolved: -No elevation in alk phos, ast, alt. Long Qt, present on admission, ongoing: -Qtc 554. Patient also has LBBB which likely prolonged Qt. -Hold Qt prolonging medications. Diabetes mellitus type 2, present on admission, stable: -Last A1c 12/26/2016 was 6.3. -Humalog low dose correctional in hospital. -Continued home meds on discharge. Exam Vital Signs (Last) Date Time Temp Pulse Resp B/P Pulse Ox O2 Delivery O2 Flow Rate FiO2 02/28/17 09:08 128 22 112/79 96 Room Air 02/28/17 03:52 36.4 02/27/17 22:35 2.00 Test 02/26/17 14:55 02/27/17 02:55 02/27/17 08:29 02/27/17 11:20 Pro-B-Type Natriuretic Peptide 3618pg/mL (0-486) Thyroid Stimulating Hormone (TSH) 2.570uIU/mL (0.450-4.500) Free Thyroxine 1.16ng/dL (0.82-1.77) Magnesium Level 1.9mg/dL (1.6-2.6) Troponin T 0.013ug/L (0.0-0.011) Urine Color Yellow (YELLOW) Urine Appearance Slightly cloudy Urine pH 5.0 (5.0-8.0) Urine Specific [place] 1.025 (1.003-1.035) Urine Protein 100mg/dL (NEG,TRACE) Urine Glucose (UA) Negativemg/dL (NEGATIVE) Urine Ketones Negativemg/dL (NEGATIVE) Urine Occult Blood Negative (NEGATIVE) Urine Nitrite Negative (NEGATIVE) Urine Bilirubin Negative (NEGATIVE) Urine Urobilinogen Normalmg/dL (NORMAL) Urine Leukocyte Esterase Negative (NEGATIVE) Urine RBC 0-2/hpf (0-2) Urine WBC 0-5/hpf (0-5) Urine Epithelial Cells Occasional/hpf (NONE-MOD) Urine Crystals Amorphous urates (NONE Urine Bacteria Moderate/hpf (NONE-FEW) Urine Hyaline Casts Occasional/lpf (NONE) Urine Granular Casts None seen (NONE SEEN) Urine Waxy Casts None seen (NONE SEEN) Urine Red Blood Cell Casts None seen (NONE SEEN) Urine White Blood Cell Casts None seen (NONE SEEN) Urine Mucus None seen (None Seen) Urine Trichomonas None seen (NONE SEEN) Urine Yeast None (NONE SEEN) Urinalysis Comment None Urine Culture Reflexed Indicated Test 02/28/17 03:15 White Blood Count 7.7th/mm3 (3.8-10.1) Red Blood Count 3.96mil/mm3 (4.40-5.80) Hemoglobin 11.0g/dL (13.8-17.2) Hematocrit 36.0% (41.0-50.0) Mean Corpuscular Volume 90.9fL (81-100) Mean Corpuscular Hemoglobin 27.8pg (27.0-35.0) Mean Corpuscular Hemoglobin Concent 30.6% (32.0-37.0) Red Cell Distribution Width 18.8% (12.3-15.4) Platelet Count 186bil/L (150-400) Neutrophils (%) (Auto) 81.6% (40-74) Lymphocytes (%) (Auto) 10.9% (14-46) Monocytes (%) (Auto) 6.1% (4-12) Eosinophils (%) (Auto) 1.0% (0-5) Basophils (%) (Auto) 0.3% (0-3) Prothrombin Time 36.5sec (8.1-12.5) Prothromb Time International Ratio 3.33ratio Sodium Level 139mEq/L (134-144) Potassium Level 4.0mEq/L (3.5-5.2) Chloride Level 103mEq/L (97-108) Carbon Dioxide Level 19mmol/L (18-29) Blood Urea Nitrogen 37mg/dL (8-27) Creatinine 1.21mg/dL (0.76-1.27) Estimat Glomerular Filtration Rate 62mL/min (>59) Glucose Level 143mg/dL (60-99) Calcium Level 9.3mg/dL (8.5-10.1) Total Bilirubin 1.1mg/dL (0.0-1.2) Aspartate Amino Transf (AST/SGOT) 13U/L (0-50) Alanine Aminotransferase (ALT/SGPT) 8U/L (0-44) Alkaline Phosphatase 65U/L (25-160) Total Protein 6.7g/dL (6.4-8.4) Albumin 3.2g/dL (3.4-5.0) Discharge Medications Discharge Medications Cholecalciferol (Vitamin D3) (Vitamin D3) 1,000 Unit Tab.chew 1,000 UNIT PO DAILY (Reported) Flaxseed Oil ([place]-3 Flaxseed Oil) 1,000 Mg Capsule 1,000 MG PO BID (Reported) Glipizide (Glipizide) 5 Mg Tablet 5 MG PO DAILYWM (Reported) Lisinopril (Lisinopril) 10 Mg Tablet 5 MG PO DAILY (Reported) Magnesium Oxide (Magnesium Oxide) 400 Mg Tablet 400 MG PO DAILY (Reported) Metformin (Glucophage) 1,000 Mg Tablet 1,000 MG PO BIDWM (Reported) Metoprolol Succinate ER (Metoprolol Succinate ER) 100 Mg Tab.er.24h 150 MG PO BID Prescribed by: NORBERTO BRYANT DO Multivitamin (Multi Vitamin Daily) 1 Each Tablet 1 EACH PO DAILY (Reported) Rosuvastatin Calcium (Crestor) 5 Mg Tablet 2.5 MG PO every saturday (Reported) Spironolactone (Spironolactone) 25 Mg Tablet 12.5 MG PO QAM (Reported) Torsemide (Torsemide) 20 Mg Tablet 40 MG PO DAILY Prescribed by: NORBERTO BRYANT DO Warfarin Sodium (Warfarin Sodium) 2.5 Mg Tablet 2.5 MG PO DAILY Prescribed by: CATALINO FISH DO As needed Acetaminophen (Acetaminophen) 325 Mg Capsule 650 MG PO q4 hours PRN PRN For Pain (Reported) Fluticasone Propionate (Fluticasone Propionate Nasal) 16 Gm [place].susp 2 SPRAYS NASAL DAILY PRN PRN allergies (Reported) Followup Plan Discharge Diet: No restrictions Discharge Activity: Limited until seen by PCP Patient Instructions As we stated to you this morning we are going to discharge you. You presented to us in atrial fibrillation with a fast heart rate. We still have not controlled this hear rate completely. We discussed the risks of you leaving the hospital today including the risk of sudden cardiac . If you experience any chest pain or pressure, shortness of breath, lose consciousness, fevers, nausea, vomiting, indigestion, numbness or tingling in extremities then you need to return to the emergency department or call 911 immediately. We have increased your dose of Metoprolol. Take per instructions. As we discussed this can lead to low blood pressure and falls. Please be careful with positional changes such as going from the sitting to standing position. We have stopped your Lasix. We have started a new medication called torsemide in place of the Lasix. Take the torsemide per instructions. You need a PCP appoinmtnet within the next 5 days. You need to see a veneer lathe operator within the next 1-2 weeks. At your next visit with the veneer lathe operator consider getting a referral to Dr. Cespedes who is a specialist in atrial fibrillation. You can also speak to them to see if you are a candidate for a AICD (automatic implantable cardioverter-defibrillator). We have sent a referral to our social work department so you can resume home health. Follow-up with PCP in: 1 week (Joselin Buenrostro) Follow-up in: 1 week (Cardiology in 1-2 weeks.) Time spent Greater than 30 minutes was spent in preparation of discharge with greater than 50% of that time dedicated to patient counseling and coordination of care. . Attending Statement The patient was seen and examined together with Dr. Bryant on 02/28/2017 and I agree with the history, exam and plan as outlined in the note above. . copies to: Temitope Buenrostro PA-C; Kelsey Fortune MD, Christopher DO Jun 15, 2017 09:51 Aditya Duffy MD Mar 01, 2017 06:33 Follow-up in: 1 week (Cardiology in 1-2 weeks.) Norberto Bryant DO Feb 28, 2017 09:51
== END 2017-02-28 11:00 | disposition home health service (06) | DRG 309 ==
LOC: SED 14:56 → PCC 16:53 → INTOOBSV 16:53 → OBSVTOIN 16:53
PROVIDERS: ADMIT Internal Medicine; ATTEND Internal Medicine
DX: I48.91 Unspecified atrial fibrillation (principal); I50.20 Unspecified systolic (congestive) heart failure; N17.9 Acute kidney failure, unspecified; Z95.1 Presence of aortocoronary bypass graft; Z79.01 Long term (current) use of anticoagulants; Z79.84 Long term (current) use of oral hypoglycemic drugs; Z95.2 Presence of prosthetic heart valve; I44.7 Left bundle-branch block, unspecified; Z95.0 Presence of cardiac pacemaker; R74.8 Abnormal levels of other serum enzymes; E83.42 Hypomagnesemia; E11.9 Type 2 diabetes mellitus without complications; I45.81 Long QT syndrome; E80.6 Other disorders of bilirubin metabolism

== ENCOUNTER 2017-06-04 11:30 | Emergency (ER) | payer MEDICARE ==
[~2017-06-04] VITALS: Ht 188 cm; Wt 118.6 kg
[~2017-06-04 11:30] MED LIST changes: +ACET325C PO; +CHOL10008 PO; +FLAX100038 PO; +FLUT16SP NASAL; -FURO40TA4 PO; -INSLIS SUBQ; -LAN125 PO; +LISI10TA PO; +METF1000 PO; +METO-394 PO; -METO100T3 PO; +MULT-1018 PO; -NYST1POW23 MC; -POTA20TA16 PO; +ROSU5TAB PO; +SPIR25TA3 PO; +TORS20TA3 PO
[2017-06-04 11:35] VITALS: BP 118/78; PULSE 107; RESP 16; O2SAT 96
--- NOTE | 2017-06-04 11:40 | ED.REPORT ---
HPI-Trauma Minor / Fall Date of Service Jun 04, 2017 ED Provider: Sea Uribe PA-C Vick is a 77-year-old male with an extensive medical history presenting for evaluation following a fall. Patient reports tripping and falling, causing him to strike his head. He is on warfarin. He reports his INR was 2 last week. He denies loss of consciousness, headache, vomiting, seizure, neck pain. He denies of the fall is preceded by a sense of presyncope, chest pain, shortness of breath, lightheadedness. Nursing Notes Stated Complaint: POST FALL, HEAD INJURY Chief Complaint: Multiple Trauma/Fall Nursing Notes Reviewed: Yes Allergies: Coded Allergies: Looxxzx-Bnz-Hwf Reductase Inhibitor (Verified Allergy, Severe, 02/26/17) unable to walk hydrocodone (Verified Allergy, Severe, Shortness of Breath, 02/26/17) atorvastatin (Verified Allergy, Intermediate, muscle weakness, "can't walk ", 02/26/17) fluticasone (Verified Allergy, Intermediate, Hives, 02/26/17) gemfibrozil (Verified Allergy, Intermediate, 02/26/17) pt cannot remember reaction but states not being able to walk was r/t only to statins. simvastatin (Verified Allergy, Intermediate, muscle weakness "can't walk" , 02/26/17) Uncoded Allergies: crestor (Allergy, Intermediate, muscle weakness, can't walk, 10/31/07) red yeast rice (Allergy, Unknown, 10/31/07) Scheduled Cholecalciferol (Vitamin D3) (Vitamin D3) 1,000 Unit Tab.chew 1,000 UNIT PO DAILY Flaxseed Oil ([place]-3 Flaxseed Oil) 1,000 Mg Capsule 1,000 MG PO BID Glipizide (Glipizide) 5 Mg Tablet 5 MG PO DAILYWM Lisinopril (Lisinopril) 10 Mg Tablet 5 MG PO DAILY Magnesium Oxide (Magnesium Oxide) 400 Mg Tablet 400 MG PO DAILY Metformin (Glucophage) 1,000 Mg Tablet 1,000 MG PO BIDWM Metoprolol Succinate ER (Metoprolol Succinate ER) 100 Mg Tab.er.24h 150 MG PO BID Multivitamin (Multi Vitamin Daily) 1 Each Tablet 1 EACH PO DAILY Rosuvastatin Calcium (Crestor) 5 Mg Tablet 2.5 MG PO every saturday Spironolactone (Spironolactone) 25 Mg Tablet 12.5 MG PO QAM Torsemide (Torsemide) 20 Mg Tablet 40 MG PO DAILY Warfarin Sodium (Warfarin Sodium) 2.5 Mg Tablet 2.5 MG PO DAILY Scheduled PRN Acetaminophen (Acetaminophen) 325 Mg Capsule 650 MG PO q4 hours PRN PRN For Pain Fluticasone Propionate (Fluticasone Propionate Nasal) 16 Gm [place].susp 2 SPRAYS NASAL DAILY PRN PRN allergies General Time Seen by MD: 11:35 Chief Complaint Fall Past Medical History Past Medical History Notes: Sees wound care for lower extremities. Past Medical History atrial fibrillation on coumadin LBBB diabetes mellitus with peripheral neuropathy Aortic stenosis coronary artery disease hypertension arthritis hemorrhoids Venous stasis ulceration Venous insufficiency with lymphedema Eczema BPH Hemodialysis Sleep apnea Reports: Cancer, Congestive heart failure Past Surgical History aortic valve replacement CABGx4 2008 R knee replacement Hip replacement Reports: Cataract surgery Reports: Pacemaker insertion Smoking History Never Smoker Social History Other Social History: Good social support, , Local resident Ambulatory Status Independent Review of Systems Review of Systems Note: Negative unless stated otherwise in history of present illness Physical Exam General: Well appearing, well developed, well nourished, no acute distress. Head: 3 cm laceration above the left eye, normocephalic. Probe with cotton swab approximately 1 cm. Surrounding abrasion. No deformity. Eyes: No scleral icterus or injection. No discharge. PERRL. Vision grossly intact. Ears: Hearing grossly intact. Negative [place] sign, no discharge Nose: Symmetrical, nares patent without discharge. No frontal or maxillary sinus tenderness. Mouth/pharynx: normal dentition, mucus membranes moist. Tonsils 2+ and symmetrical, uvula midline. Pharynx noninjected, no cobblestoning or discharge. Voice clear. Neck: No tenderness or lymphadenopathy. Trachea midline. Respiratory: Regular rate and rhythm. Breath sounds present, clear to auscultation and equal bilaterally. No respiratory distress. No increased work of breathing, speaks in complete sentences. Cardiovascular: Tachycardic rate 105, irregularly irregular rhythm, without murmur, gallop or rub. No pedal edema. Skin: Warm and dry. Small skin tear on the left forearm. Neurological: Strength and sensation grossly intact in extremities. Grossly nonfocal. Cranial nerves: Vision grossly intact, PERRL, EOMI. Facial motion symmetrical, sensation to light touch over forehead, maxilla and mandible present and equal B /L. Voice clear and fluent, no drooling/pooling of saliva, uvula rises midline. Psychological: Alert and oriented. Speech appropriate, linear and logical. Behavior appropriate. Initial Vital Signs Vital Signs (First) Date Time Temp Pulse Resp B/P Pulse Ox O2 Delivery O2 Flow Rate FiO2 06/04/17 11:35 36.1 107 16 118/78 96 Room Air Tachycardia Interpretation & Diagnostics Lab Results Interpretation Test 06/04/17 11:42 06/04/17 11:45 Prothrombin Time 19.0sec (8.1-12.5) Prothromb Time International Ratio 1.76ratio Troponin T 0.019ug/L (0.0-0.011) ECG Interpretation ECG Interpretation: Atrial fibrillation with a rate of 106, left bundle branch block, unchanged from previous. Time: 12:04 Interpreted by: ED physician (Dr. Briscoe) CT Head Interpretation PROCEDURE: CT BRAIN WITHOUT CONTRAST ([id number]) INDICATIONS: trauma TECHNIQUE: Noncontrast 4.5 mm thick angled axial sections acquired from the foramen magnum to the vertex, with coronal reformats. COMPARISON: [facility], CT, CT BRAIN WO CON, 01/09/2017, 13:41. [facility], CT, CT BRAIN WO CON, 01/09/2017, 2:34. FINDINGS: Image quality: Excellent. CSF spaces: Basal cisterns are patent. No extra-axial fluid collections. The ventricles are symmetric in size and shape. Brain: No intracranial bleeds or masses. There is cerebral volume loss for age, with resultant ventricular and sulcal prominence. There are periventricular and deep white matter chronic small vessel ischemic changes. Old right frontal infarct is stable compared to prior exam obtained 01/09/17. There is intracranial internal carotid artery and vertebral artery. atherosclerosis. Skull and face: Calvarium and visualized facial bones appear intact, without suspicious lesions. Sinuses: Visualized sinuses and mastoids are clear. IMPRESSION: No acute intracranial disease process. Procedures Laceration Management Time: 13:59 Procedure Performed by: Allied health pract (Cruz Uribe) Location of Wound: Above the left eye Wound Length: 3 cm Local Anesthesia: Lidocaine w epi 1% (supraorbital block performed by Dr. Dax Wylie), 2cc, 27g needle Wound Preparation: Shurclens, Normal saline Debridement: None Irrigation: 250 cc Foreign Body Explore / Removal: Explored for foreign body Repair Skin: Prolene (6-0) # Sutures - Skin: 3 Closure Layers: 1 Suture Technique: Mattress Post-Procedure / Complications: Antibiotic oint applied, Dressing applied, No complications, Condition improved, Tolerated procedure well, Patient stable Re-Eval/Medical Decision Med Decision/Clinical Course 77-year-old male with extensive medical history extensive emergency department for evaluation after a chemical fall in which he struck his head on the sidewalk. Patient is on Coumadin. Reports a laceration over his left eye. No other complaints. States tetanus up-to-date. Physical examination reveals 3 cm laceration above the left eye, skin tear on the left forearm. Neuro exam is normal. Vitals reveal tachycardia. Patient is in A. fib which he states is chronic. Patient's blood pressure is often noted to be in the 80s and 90s. Patient likewise reports this is chronic. He denies lightheadedness, presyncope. CT of the head is negative for fracture or bleeding. EKG reveals atrial fibrillation, left bundle branch block unchanged from previous. Troponin is slightly elevated at 0.019, which is consistent with many earlier studies. INR is 1.76. I discussed the case with Dr. Briscoe, who met with and examined and the patient. He recommended suturing the laceration above the left eye, performs supraorbital block. Wound is cleaned, sutured and dressed as above. Do not feel that antibiotics are indicated as the wound is small, thoroughly irrigated and well perfused. At this point I'm reassured against intracranial bleeding, significant head injury. There is some concern regarding the patient's low blood pressure, intermittent tachycardia as a possible aggravating factor in his fall. Labs however reassuring. Patient passes road test, states feels "normal" and has no complaints. We believe he is stable and safe to be discharged home. Advised regarding wound care, primary care follow-up. Advised suture removal in 5 days. Provide emergent return precautions. Patient verbalizes understanding of and consented to plan. Re-Evaluation/Progress : Time of Eval: 14:05 Re-Evaluation/Progress Note: There is concern about the patient's low blood pressure, noted to be in the 80s. Patient reports no symptoms, states he feels fine. Patient states he normally has low blood pressure. Discussed the case with Dr. Briscoe, recommend road test, discharge if the patient is asymptomatic. Discharge & Departure Impression: Primary Impression: Fall from ground level Additional Impressions: Anticoagulated on Coumadin Laceration of head Encounter type: initial encounter Location of open wound of head: unspecified part of head Foreign body presence: without foreign body Qualified Code: S01.91XA - Laceration without foreign body of unspecified part of head, initial encounter Disposition: Home Discharge Condition All VS Reviewed: Yes Condition: Stable Patient Instructions: Laceration (ED) Additional Instructions: We have evaluated you in the emergency department following a fall with a head injury. CT of the brain reveals no evidence of bleeding. There is a laceration above your left eye. This appears to be a clean wound, and I see no indication for antibiotics at this time. you have told me that you are up-to-date on your tetanus shot. We have cleaned, sutured and dressed the wound with antibiotic ointment and gauze. Please leave this dressing on and dry for the next 24 hours. After that you can remove the dressing, clean with soap and water and then reapply antibiotic ointment and gauze or Band-Aid. Please do not submerge the wound as in washing dishes, swimming or soaking in a tub until you have the sutures removed. The pain is best treated with 1000 mg of acetaminophen (Tylenol) every 6 hours. Be vigilant for signs of infection. While a small amount of redness, tenderness and clear or pink drainage is normal, any increasing pain, redness, swelling or the appearance of pus suggests infection. More severe infection as suggested by symptoms such as fever, chills, feeling ill, racing heart. Please return to emergency Department if you notice signs of infection. Follow-up with your primary care provider or return to the emergency department in 5 days for suture removal. Return to emergency department for new or worsening symptoms including severe or increasing headache, vomiting, increasing confusion, neck pain or neurologic symptoms. Referrals: Temitope Buenrostro PA-C (PCP) Calin Waller MD (Family) EDSupervising Provider for APC: Garrick Edwards DO Attending Statement I have seen and examined the patient. I have reviewed the chart and agree with the documentation as recorded by the Midlevel Provider, including assessment, treatment plan, and disposition. Findings from my exam are included in documentation above. copies to: Calin Waller MD; Temitope Buenrostro PA-C, Seth PA-C Jun 04, 2017 11:40 OGarrick Borges DO Jun 06, 2017 06:16
[2017-06-04 12:07] LABS: INR 1.76 ratio
--- NOTE | 2017-06-04 12:25 | DRSVH ---
PROCEDURE: CT BRAIN WITHOUT CONTRAST ([id number]) INDICATIONS: trauma TECHNIQUE: Noncontrast 4.5 mm thick angled axial sections acquired from the foramen magnum to the vertex, with c oronal reformats. COMPARISON: [facility], CT, CT BRAIN WO CON, 01/09/2017, 13:41. [facility], CT, CT BRAIN WO CON, 01/09/2017, 2:34. FINDINGS: Image quality: Excellent. CSF spaces: Basal cisterns are patent. No extra-axial fluid collections. The ventricles are symmet beltran in size and shape. Brain: No intracranial bleeds or masses. There is cerebral volume loss for age, with resultant vent ricular and sulcal prominence. There are periventricular and deep white matter chronic small vessel ischemic changes. Old right frontal infarct is stable compared to prior exam obtained 01/09/17. There is intracranial internal carotid artery and vertebral artery. atherosclerosis. Skull and face: Calvarium and visualized facial bones appear intact, without suspicious lesions. Sinuses: Visualized sinuses and mastoids are clear. IMPRESSION: No acute intracranial disease process. Dictated by: Nancy Moody MD, PhD on 06/04/2017 at 11:17 Approved by: Nancy Moody MD, PhD on 06/04/2017 at 11:23
[2017-06-04] MEDS ORDERED: Tissue Adhesive Liq (CS Supplied) TOPICAL ONE (12:45)
[2017-06-04 13:04] VITALS: BP 97/65; PULSE 107; O2SAT 98
[2017-06-04 14:06] VITALS: BP 92/68; PULSE 105
[2017-06-04 14:22] VITALS: BP 97/63; PULSE 112; RESP 21; O2SAT 98
== END 2017-06-04 14:23 | disposition home or self-care (01) ==
LOC: SED 11:30
DX: S01.81XA Laceration without foreign body of other part of head, initial encounter (principal); W01.198A Fall on same level from slipping, tripping and stumbling with subsequent striking against other object, initial encounter; Y93.9 Activity, unspecified; Y92.512 Supermarket, store or market as the place of occurrence of the external cause; Y99.8 Other external cause status; E11.40 Type 2 diabetes mellitus with diabetic neuropathy, unspecified; I11.0 Hypertensive heart disease with heart failure; I50.9 Heart failure, unspecified; I25.10 Atherosclerotic heart disease of native coronary artery without angina pectoris; I48.91 Unspecified atrial fibrillation; Z85.9 Personal history of malignant neoplasm, unspecified; Z79.01 Long term (current) use of anticoagulants; Z95.1 Presence of aortocoronary bypass graft; Z99.2 Dependence on renal dialysis; Z79.84 Long term (current) use of oral hypoglycemic drugs; Z88.5 Allergy status to narcotic agent; Z88.8 Allergy status to other drugs, medicaments and biological substances